=== PATIENT | female | born 1985 | race Caucasian/White ===

== ENCOUNTER 2017-07-29 13:46 | Emergency (ER) | payer MEDICAID, SELFPAY ==
[2017-07-29 13:47] VITALS: BP 134/91; PULSE 116; RESP 14; TEMP 37.3; O2SAT 100; BMI 26.9
--- NOTE | 2017-07-29 15:19 | ED.VISSUMM ---
- ER Visit Summary Date of Service: 07/29/17 Chief Complaint: [Dental pain] History of Present Illness: The patient is a 32 F [presents the emergency department with dental pain. Is been going on for the last 2 weeks. He is supposed to have her right mandibular canines removed Friday however the pain is been getting worse. There is mild swelling. No fevers. 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 oarrs was pulled. Patient was given precautions for which to return and will follow up with her dentist.] Treatment Plan: [] Disposition: [Discharge] Impression: [1. Dental infection 2. Dental decay] This note was generated with [employer] dictation software. It may contain incorrect words, spelling, and punctuation that were not noted in review of the chart prior to signing ED Disposition - Plan for ED Patient: Chief Complaint: Dental Referrals: Kishore Woodruff MD [Primary Care Provider] -
--- NOTE | 2017-07-29 15:22 | ED.DCSUM_ITS ---
- ER Visit Summary Date of Service: 07/29/17 Chief Complaint: [Dental pain] History of Present Illness: The patient is a 32 F [presents the emergency department with dental pain. Is been going on for the last 2 weeks. He is supposed to have her right mandibular canines removed Friday however the pain is been getting worse. There is mild swelling. No fevers. She denies the possibility of and states she has had a tubal ligation] Physical Examination: [] 116 other vitals within normal limits No facial swelling Patient has severe decay of the right canines mandibular, there is surrounding gum hyperemia there is no abscess there is no sublingual or submandibular edema no pooling of secretions no trismus Test Results: [] Emergency Department Course and Treatment: [Patient will be given a short course of [place] and Augmentin. oarrs was pulled. Patient was given precautions for which to return and will follow up with her dentist.] Treatment Plan: [] Disposition: [Discharge] Impression: [1. Dental infection 2. Dental decay] This note was generated with [employer] dictation software. It may contain incorrect words, spelling, and punctuation that were not noted in review of the chart prior to signing ED Disposition - Plan for ED Patient: Chief Complaint: Dental Referrals: Kishore Woodruff MD [Primary Care Provider] -
--- NOTE | 2017-07-29 15:22 | ED.DEP ---
ED Disposition - Plan for ED Patient: Chief Complaint: Dental Instructions: ED Cavity Dental, ED Abscess Dental Prescriptions: Hydrocodone Bitart/Apap 5-325 [[place] 5MG-325MG] 1 tablet PO Q6H PRN PRN 2 Days #7 tablet PRN Reason: Pain Clindamycin [Cleocin] 450 mg PO TID #56 capsule Referrals: Kishore Woodruff MD [Primary Care Provider] -
--- NOTE | 2017-07-29 15:24 | DCINST.ED_ITS ---
ED Disposition - Plan for ED Patient: Chief Complaint: Dental Instructions: ED Cavity Dental, ED Abscess Dental Prescriptions: Hydrocodone Bitart/Apap 5-325 [[place] 5MG-325MG] 1 tablet PO Q6H PRN PRN 2 Days # 7 tablet PRN Reason: Pain Clindamycin [Cleocin] 450 mg PO TID #56 capsule Referrals: Kishore Woodruff MD [Primary Care Provider] -
--- NOTE | 2017-07-29 15:30 | ED.DEP ---
ED Disposition - Plan for ED Patient: Chief Complaint: Dental Instructions: ED Cavity Dental, ED Abscess Dental Prescriptions: Hydrocodone Bitart/Apap 5-325 [[place] 5MG-325MG] 1 tablet PO Q6H PRN PRN 2 Days #7 tablet PRN Reason: Pain Clindamycin [Cleocin] 450 mg PO TID #56 capsule Referrals: Kishore Woodruff MD [Primary Care Provider] - 3-5 Days
--- NOTE | 2017-07-29 15:31 | DCINST.ED_ITS ---
ED Disposition - Plan for ED Patient: Chief Complaint: Dental Instructions: ED Cavity Dental, ED Abscess Dental Prescriptions: Hydrocodone Bitart/Apap 5-325 [[place] 5MG-325MG] 1 tablet PO Q6H PRN PRN 2 Days # 7 tablet PRN Reason: Pain Clindamycin [Cleocin] 450 mg PO TID #56 capsule Referrals: Kishore Woodruff MD [Primary Care Provider] - 3-5 Days
[2017-07-29 15:37] VITALS: BP 132/78; PULSE 83; RESP 16; O2SAT 98
== END 2017-07-29 15:38 | disposition home or self-care (01) ==
LOC: ED 15:06
PROVIDERS: Emergency Provider Emergency Medicine; Family Provider Family Medicine; PCP Family Medicine
DX: K04.7 Periapical abscess without sinus (principal); K02.9 Dental caries, unspecified
CPT/HCPCS: 99282

== ENCOUNTER 2017-08-21 19:15 | Emergency (ER) | payer MEDICAID, SELFPAY ==
[2017-08-21 19:16] VITALS: BP 129/87; PULSE 79; RESP 20; TEMP 36.5; O2SAT 93; BMI 27.7
--- NOTE | 2017-08-21 19:55 | US_ITS ---
STUDY: ULTRASOUND OF THE FEMALE PELVIS - COMPLETE REASON FOR EXAM: Female, 32 years old. Right lower quadrant pain. LMP: 07/20/2017 TECHNIQUE: Transvaginal TECHNICAL QUALITY: Adequate. COMPARISON: None. FINDINGS: The uterus is retroverted and is in a midline position. The uterus measures 7.6 x 5.9 x 4.2 cm. Normal uterine cervix. The endometrium measures 7 mm in thickness, and is hyperechoic. There is no demonstrated endometrial mass. There is no demonstrated myometrial mass. I.U.D. - The patient does not have an I.U.D. The right ovary is visualized. The right ovary measures 4.1 x 2.7 x 1.8 cm. There is no right ovarian cyst or ovarian mass. There is no visualized right adnexal mass or complex lesion. There is normal arterial and normal venous vascularity. The left ovary is visualized. The left ovary measures 3.9 x 2.7 x 2.1 cm. There is a prominent simple appearing cyst measuring 2.4 x 2.2 x 1.8 cm. There is no visualized left adnexal mass or complex lesion. There is normal arterial and normal venous vascularity. There is minimal fluid in the cul-de-sac. Polycystic ovary disease: No. US/Transvaginal Non- IMPRESSION: 1. Right ovarian dominant cyst with maximum dimension of 2.4 cm. Follow-up imaging may be obtained in 4-6 weeks to document stability versus resolution. Otherwise no evidence of acute pelvic process. Electronically Signed: Hermelindo Prado DO at 21:11 EST , Service support ,
[2017-08-21] MEDS: Ondansetron ODT 4 MG Tablet PO (20:10)
[2017-08-21] MEDS: HYDROcodone Bitartrate/Apap 5/325 Tablet PO ×2 (20:10→22:11)
[2017-08-21 20:44] LABS: Bacteria 0 SEEN /hpf (None Seen); Mucous, Urine 0 SEEN /hpf (<or=2+); Red Blood Cells-Urine 0 SEEN /hpf (0-5)
[2017-08-21 21:20] VITALS: RESP 16
[2017-08-21 21:29] LABS: Color, Urine Yellow (Yellow); Glucose, Dipstick Normal (Normal); Ketone-Dipstick Negative (Negative); Leukocyte Esterase-Dipstick Negative /ul (Negative); Nitrite-Dipstick Negative (Negative); Occult Blood-Urine Negative /ul (Negative); Protein-Dipstick Negative (Negative); Specific Gravity, Urine 1.015 (1.002-1.030); Urine Bilirubin Dipstick Negative (Negative); Urine Clarity Cloudy (Clear); Urine Urobilinogen Normal (Normal)
[2017-08-21 21:48] LABS: Squamous Epithelial Cells - UA 0-5 SEEN /hpf (5-10)
[2017-08-21 21:49] LABS: Amorphous Sediment 3+; White Blood Cells 0-5 SEEN /hpf (0-5)
[2017-08-21 21:51] LABS: Internal QC Validated? YES +Cl - CLEAR BKGD; Pregnancy, Urine Negative Negative
--- NOTE | 2017-08-21 22:01 | ED.VISSUMM ---
- ER Visit Summary Date of Service: 08/21/17 Chief Complaint: Abdominal pain History of Present Illness: The patient is a 32 F with right pelvic pain that started several days ago. Feels like stabbing pain. She had similar symptoms in the past with ovarian cyst. Denies any vaginal discharge or bleeding. Last menstrual period was July 20. Physical Examination: Vital signs unremarkable. Afebrile. Nontoxic and in no acute distress. Heart regular. Lungs clear. Right pelvic tenderness. No guarding or rebound. Skin appears normal. Test Results: Ultrasound shows a right ovarian cyst, 2.4 cm. Follow-up in 4-6 weeks. Urinalysis and test negative. Emergency Department Course and Treatment: Patient was treated with Zofran and [place] while awaiting results. Patient may use muuf-bit-tvhlneq remedies for pain at home. Zofran as needed for nausea. Follow-up with OB for recheck. Return for any new or worsening symptoms. Torsion was discussed. There is no indication for any further imaging or diagnostic studies. Patient is appropriate for outpatient follow-up. Treatment Plan: As above Disposition: Discharged Impression: 1. Right ovarian cyst This note was generated with [employer] dictation software. It may contain incorrect words, spelling, and punctuation that were not noted in review of the chart prior to signing ED Disposition - Plan for ED Patient: Chief Complaint: Female C/O Referrals: Kishore Woodruff MD [Primary Care Provider] -
--- NOTE | 2017-08-21 22:04 | ED.DCSUM_ITS ---
- ER Visit Summary Date of Service: 08/21/17 Chief Complaint: Abdominal pain History of Present Illness: The patient is a 32 F with right pelvic pain that started several days ago. Feels like stabbing pain. She had similar symptoms in the past with ovarian cyst. Denies any vaginal discharge or bleeding. Last menstrual period was July 20. Physical Examination: Vital signs unremarkable. Afebrile. Nontoxic and in no acute distress. Heart regular. Lungs clear. Right pelvic tenderness. No guarding or rebound. Skin appears normal. Test Results: Ultrasound shows a right ovarian cyst, 2.4 cm. Follow-up in 4-6 weeks. Urinalysis and test negative. Emergency Department Course and Treatment: Patient was treated with Zofran and [place] while awaiting results. Patient may use jrqb-wmm-hkgowiu remedies for pain at home. Zofran as needed for nausea. Follow-up with OB for recheck. Return for any new or worsening symptoms. Torsion was discussed. There is no indication for any further imaging or diagnostic studies. Patient is appropriate for outpatient follow-up. Treatment Plan: As above Disposition: Discharged Impression: 1. Right ovarian cyst This note was generated with [employer] dictation software. It may contain incorrect words, spelling, and punctuation that were not noted in review of the chart prior to signing ED Disposition - Plan for ED Patient: Chief Complaint: Female C/O Referrals: Kishore Woodruff MD [Primary Care Provider] -
--- NOTE | 2017-08-21 22:04 | ED.DEP ---
ED Disposition - Plan for ED Patient: Chief Complaint: Female C/O Instructions: ED Cyst Ovarian Prescriptions: Ondansetron [Zofran Odt] 4 mg PO Q8H PRN PRN #10 tab PRN Reason: Nausea Naproxen [Naprosyn] 500 mg PO BID PRN #20 tab Additional Instructions: Follow-up with your OB doctor as discussed
[2017-08-21 22:12] VITALS: RESP 16
--- NOTE | 2017-08-21 22:13 | ED.RN ---
REVIEWED D/C INSTRUCTIONS, FOLLOW UP CARE, PRESCRIPTIONS, AND S/S THAT WOULD WARRANT A RETURN TO THE ED WITH PT. PT VERBALIZED AN UNDERSTANDING AND DENIES FURTHER QUESTIONS FOR THIS RN. PT SKIN P/W/D, RESP EVEN AND UNLABORED, PT A&O X 3, NO DISTRESS NOTED. PT AMBULATED OUT OF ED, GAIT STEADY.
== END 2017-08-21 22:14 | disposition home or self-care (01) ==
PROVIDERS: Emergency Provider Emergency Medicine; Family Provider Family Medicine; PCP Family Medicine
DX: N83.201 Unspecified ovarian cyst, right side (principal)
CPT/HCPCS: 76830; 81001; 81025; 93976; 99283

== ENCOUNTER 2017-08-22 15:37 | Emergency (ER) | payer MEDICAID, SELFPAY ==
[2017-08-22 15:39] VITALS: BP 152/72; PULSE 88; PULSE 92; RESP 14; RESP 17; TEMP 36.9; O2SAT 100; BMI 27.8
--- NOTE | 2017-08-22 16:24 | ED.VISSUMM ---
- ER Visit Summary Date of Service: 08/22/17 Chief Complaint: Right pelvic pain History of Present Illness: The patient is a 32 F who presents for right-sided pelvic pain for 5 days. Was seen last night for the same complaint and had a normal urine and pelvic ultrasound that showed a large right ovarian cyst with no evidence of torsion. Patient was discharged home on NSAIDs and Zofran. She states the Zofran is taking care of her nausea but she continues to have pain that is not controlled with the naproxen. Patient denies any dysuria, hematuria, frequency, back pain, or any other abdominal pain except localized the right pelvis. She denies any vaginal discharge or bleeding. She denies and states she is not sexually active and has tubal ligation. Physical Examination: Vital signs: afebrile, hemodynamically stable, no hypoxia on room air General: well nourished, well developed, in no distress Skin: warm, dry, no rash, no pallor HEENT: normocephalic and atraumatic; PERRL, EOMI, moist mucous membranes Cardiovascular: regular rate and rhythm without murmurs, no peripheral edema, 2+ pulses all distal extremities Respiratory: No increased work of breathing, lungs are clear to auscultation bilaterally, no rales, rhonchi or wheezing Abdominal: Abdomen is soft, nontender with normoactive bowel sounds, no guarding or rebound, no masses, no adnexal mass noted in the right pelvis, no tenderness, guarding or rebound. Negative McBurney's point. MSK: Moves all extremities, no deformities, normal strength Neuro: Awake and alert, oriented ?4. No facial droop, sensation and motor function intact and symmetric Test Results: [] Emergency Department Course and Treatment: Patient's visit from yesterday was reviewed, and she is having no change in her condition since yesterday. Her ultrasound yesterday showed a right ovarian cyst and no evidence of torsion or other acute pathology. Patient's exam today is benign, with no adnexal tenderness or mass. No further testing was performed as this clinically does not seem consistent with ovarian torsion or appendicitis. Patient's main request is for pain medication to help her until she gets to her appointment with her OB physician on Friday. [facility] report was evaluated and showed limited opiate prescriptions for months. Patient was given 2 days prescription of Percocet for severe pain but she is to continue using NSAIDs for [id number] pain. Patient agreed with this plan was discharged home. Treatment Plan: [] Disposition: [] Impression: Right ovarian cyst, persistent right pelvic pain This note was generated with [employer] dictation software. It may contain incorrect words, spelling, and punctuation that were not noted in review of the chart prior to signing ED Disposition - Plan for ED Patient: Disposition: Home or Assisted Living Chief Complaint: Female C/O Instructions: ED Cyst Ovarian Prescriptions: Oxycodone HCl/Acetaminophen [Percocet 5/325] 1 tab PO Q6H PRN PRN 3 Days #10 tab PRN Reason: Pain Referrals: Kishore Woodruff MD [Primary Care Provider] - Additional Instructions: Please keep your appointment on Friday with Dr. Handley for further evaluation of your right pelvic pain and history of ovarian cysts. Continue using the Zofran as needed for pain. Use Advil or naproxen as needed for pain. You may use the percocet for severe uncontrolled pain. Any worsening of your condition or any new concerning symptoms, please come back to the emergency department for another evaluation.
--- NOTE | 2017-08-22 16:26 | ED.DEP ---
ED Disposition - Plan for ED Patient: Disposition: Home or Assisted Living Chief Complaint: Female C/O Instructions: ED Cyst Ovarian Prescriptions: Oxycodone HCl/Acetaminophen [Percocet 5/325] 1 tab PO Q6H PRN PRN 3 Days #10 tab PRN Reason: Pain Referrals: Kishore Woodruff MD [Primary Care Provider] - Additional Instructions: Please keep your appointment on Friday with Dr. Handley for further evaluation of your right pelvic pain and history of ovarian cysts. Continue using the Zofran as needed for pain. Use Advil or naproxen as needed for pain. You may use the percocet for severe uncontrolled pain. Any worsening of your condition or any new concerning symptoms, please come back to the emergency department for another evaluation.
== END 2017-08-22 16:39 | disposition home or self-care (01) ==
LOC: ED 16:29
PROVIDERS: Emergency Provider Emergency Medicine; Family Provider Family Medicine; PCP Family Medicine
DX: N83.201 Unspecified ovarian cyst, right side (principal); R10.2 Pelvic and perineal pain; R11.0 Nausea
CPT/HCPCS: 99282

== ENCOUNTER 2017-08-27 14:46 | Emergency (ER) | payer MEDICAID, SELFPAY ==
[2017-08-27 14:47] VITALS: BP 129/82; PULSE 98; RESP 16; TEMP 37.1; O2SAT 100; BMI 27.2
--- NOTE | 2017-08-27 15:13 | US_ITS ---
STUDY: ULTRASOUND TRANSVAGINAL CLINICAL: Female, 32 years old. Right lower quadrant pain. TECHNIQUE: Transvaginal COMPARISON: Transvaginal ultrasound, August 21, 2017 and August 17, 2015. FINDINGS: Uterus is retroverted. Normal uterine size measuring 6.5 x 5.8 x 6.2 cm in maximal dimension. There are no myometrial masses. Normal endometrial thickness measuring 11 mm. The endometrium is hyperechoic. There are no endometrial masses, and there is no fluid in the endometrial cavity. Normal uterine cervix. Normal right ovary, measuring 4 x 2.4 x 1.8 cm. There are multiple follicles without a dominant cyst. There is normal blood flow on Doppler imaging. Normal left ovary, measuring 4.5 x 3.5 x 2.7 cm. There is a 2.8 x 2.5 x 2.1 cm cyst. There is normal blood flow on Doppler imaging. There is no free fluid in the pelvis. US/Transvaginal Non- IMPRESSION: 1. Mildly prominent endometrium without other evidence of uterine abnormality. 2. Normal right ovary. 3. A persistent left ovarian cyst unchanged from prior study. 4. Moderate free fluid in the posterior cul-de-sac. Electronically Signed: Oswaldo Garsia DO at 16:24 EDT Tel [phone], Service support ,
[2017-08-27] MEDS: Ondansetron ODT 4 MG Tablet PO (15:32)
[2017-08-27 15:34] VITALS: RESP 18
[2017-08-27 15:37] LABS: Internal QC Validated? YES +Cl - CLEAR BKGD; Pregnancy, Urine Negative Negative
[2017-08-27 15:42] LABS: Glucose, Dipstick Normal (Normal); Ketone-Dipstick Negative (Negative); Leukocyte Esterase-Dipstick 25 /ul (Negative); Nitrite-Dipstick Negative (Negative); Occult Blood-Urine Negative /ul (Negative); Protein-Dipstick 15 mg/dl (Negative); Urine Bilirubin Dipstick Negative (Negative); Urine Urobilinogen Normal (Normal)
[2017-08-27 15:43] LABS: Color, Urine YELLOW (Yellow); Urine Clarity Clear (Clear)
[2017-08-27 15:52] LABS: Bacteria 1+ /hpf (None Seen); Mucous, Urine 2+ /hpf (<or=2+); Red Blood Cells-Urine 0-5 SEEN /hpf (0-5); Squamous Epithelial Cells - UA 0-5 SEEN /hpf (5-10); White Blood Cells 0-5 SEEN /hpf (0-5)
[2017-08-27] MEDS: Acetaminophen 500 MG Tablet 1000 MG PO (16:32)
--- NOTE | 2017-08-27 16:51 | ED.VISSUMM ---
- ER Visit Summary Date of Service: 08/27/17 Chief Complaint: Pelvic pain History of Present Illness: The patient is a 32 F presenting for evaluation secondary to pelvic pain. Patient states that she has a known history of an ovarian cyst and has been having continuous right sided sharp pelvic pain over the course of the last week. She has had ultrasounds within the last week, was actually following up with the nurse practitioner at her family practice office today who recommended that she come back for another ultrasound. Patient denies any fevers dysuria hematuria she does endorse some nausea associated with this. She denies any vaginal discharge or bleeding. She is status post tubal ligation. She has an appointment coming up with OB on Friday. Physical Examination: Vital signs within normal limits. Patient is sitting nontoxic in the bed talking on her telephone when I enter the room. Abdominal exam shows a minimal amount of right-sided pelvic tenderness to palpation no guarding no rebound tenderness remainder the physical otherwise unremarkable and noted in the template. Test Results: Urinalysis negative, hCG negative, pelvic ultrasound shows left-sided ovarian cysts and free fluid in the pelvis Emergency Department Course and Treatment: Patient presented secondary to chronic pelvic pain. Patient does have multiple ED visits for the same, but ultrasound was performed to rule out torsion. Patient has good blood flow, her previous ultrasound actually said that her ovarian cysts were on the right, and today it states that they are on the left but there are the exact same size with good blood flow. I am not concerned about torsion at this point. Patient is sitting completely nontoxic texting in the bed when I go in to reevaluate her. She refused Toradol. This point I believe she can follow-up with [facility] on Friday. Patient will be discharged with a prescription for NSAIDs. Disposition: Discharge Impression: 1. Chronic pelvic pain 2. Ovarian cyst This note was generated with [employer] dictation software. It may contain incorrect words, spelling, and punctuation that were not noted in review of the chart prior to signing ED Disposition - Plan for ED Patient: Disposition: Home or Assisted Living Chief Complaint: Abd Pain Diagnosis: Pelvic pain Instructions: ED Cyst Ovarian Prescriptions: Diclofenac [Voltaren] 75 mg PO BIDCM #20 tab Referrals: Josh Sheffield [STAFF PHYSICIAN] - Keep Hank appointment
--- NOTE | 2017-08-27 16:56 | ED.DCSUM_ITS ---
- ER Visit Summary Date of Service: 08/27/17 Chief Complaint: Pelvic pain History of Present Illness: The patient is a 32 F presenting for evaluation secondary to pelvic pain. Patient states that she has a known history of an ovarian cyst and has been having continuous right sided sharp pelvic pain over the course of the last week. She has had ultrasounds within the last week, was actually following up with the nurse practitioner at her family practice office today who recommended that she come back for another ultrasound. Patient denies any fevers dysuria hematuria she does endorse some nausea associated with this. She denies any vaginal discharge or bleeding. She is status post tubal ligation. She has an appointment coming up with OB on Friday. Physical Examination: Vital signs within normal limits. Patient is sitting nontoxic in the bed talking on her telephone when I enter the room. Abdominal exam shows a minimal amount of right-sided pelvic tenderness to palpation no guarding no rebound tenderness remainder the physical otherwise unremarkable and noted in the template. Test Results: Urinalysis negative, hCG negative, pelvic ultrasound shows left- sided ovarian cysts and free fluid in the pelvis Emergency Department Course and Treatment: Patient presented secondary to chronic pelvic pain. Patient does have multiple ED visits for the same, but ultrasound was performed to rule out torsion. Patient has good blood flow, her previous ultrasound actually said that her ovarian cysts were on the right, and today it states that they are on the left but there are the exact same size with good blood flow. I am not concerned about torsion at this point. Patient is sitting completely nontoxic texting in the bed when I go in to reevaluate her. She refused Toradol. This point I believe she can follow-up with [facility] on Friday. Patient will be discharged with a prescription for NSAIDs. Disposition: Discharge Impression: 1. Chronic pelvic pain 2. Ovarian cyst This note was generated with [employer] dictation software. It may contain incorrect words, spelling, and punctuation that were not noted in review of the chart prior to signing ED Disposition - Plan for ED Patient: Disposition: Home or Assisted Living Chief Complaint: Abd Pain Diagnosis: Pelvic pain Instructions: ED Cyst Ovarian Prescriptions: Diclofenac [Voltaren] 75 mg PO BIDCM #20 tab Referrals: Josh Sheffield [STAFF PHYSICIAN] - Keep Hank appointment
--- NOTE | 2017-08-27 17:05 | ED.RN ---
REVIEWED D/C INSTRUCTIONS, FOLLOW UP CARE, PRESCRIPTION, AND S/S THAT WOULD WARRANT A RETURN TO THE ED WITH PT. PT VERBALIZED AN UNDERSTANDING AND DENIES FURTHER QUESTIONS FOR THIS RN. PT SKIN P/W/D, RESP EVEN AND UNLABORED, PT A&O X 3, NO DISTRESS NOTED. PT AMBULATED OUT OF ED, GAIT STEADY.
== END 2017-08-27 17:06 | disposition home or self-care (01) ==
PROVIDERS: Emergency Provider Emergency Medicine; Family Provider Family Medicine; PCP Family Medicine
DX: G89.29 Other chronic pain (principal); R10.2 Pelvic and perineal pain; R11.0 Nausea; N83.202 Unspecified ovarian cyst, left side; Z98.51 Tubal ligation status; Z79.899 Other long term (current) drug therapy
CPT/HCPCS: 76830; 81001; 81025; 93976; 99281; 99283

== ENCOUNTER 2017-08-27 18:09 | Emergency (ER) | payer MEDICAID, SELFPAY ==
[2017-08-27 18:09] VITALS: BP 147/79; PULSE 92; RESP 18; TEMP 36.8; O2SAT 99; BMI 27.3
[2017-08-27] MEDS: HYDROcodone Bitartrate/Apap 5/325 Tablet PO (19:17)
--- NOTE | 2017-08-27 19:21 | ED.VISSUMM ---
- ER Visit Summary Date of Service: 08/27/17 Chief Complaint: Pelvic pain History of Present Illness: The patient is a 32 F presenting due to pelvic pain. Patient was seen in the emergency department earlier today having sequela of pain from ovarian cysts. She had a negative ultrasound except for large ovarian cysts, she was discharged with NSAIDs and states that her pain is not well controlled. She has an appointment coming up on Friday with [facility]. Physical Examination: Very minimal pelvic tenderness to palpation remainder the physical otherwise unremarkable Test Results: None indicated Emergency Department Course and Treatment: Saw this patient earlier in the shift, patient did have a negative ultrasound, she continues to be nontoxic, her oars report shows that she has not had recent prescriptions, so the patient was given a very protracted course of Percocet and was instructed that she will get NO MORE PRESCRIPTIONS FROM THE EMERGENCY DEPARTMENT. Disposition: Discharge Impression: 1. Pelvic pain This note was generated with [employer] dictation software. It may contain incorrect words, spelling, and punctuation that were not noted in review of the chart prior to signing ED Disposition - Plan for ED Patient: Disposition: Home or Assisted Living Chief Complaint: Abd Pain Diagnosis: Pelvic pain Instructions: ED Pelvic Pain [facility] Prescriptions: Oxycodone HCl/Acetaminophen [Percocet 5/325] 1 tab PO Q6H PRN PRN 3 Days #12 tab PRN Reason: Pain Additional Instructions: Followup on Friday. You must obtain your prescriptions from a single provider. We will be unable to provide you with any further narcotic prescriptions
[2017-08-27 19:39] VITALS: BP 138/80; PULSE 90; RESP 14; O2SAT 99
== END 2017-08-27 19:41 | disposition home or self-care (01) ==
PROVIDERS: Emergency Provider Emergency Medicine; Family Provider Family Medicine; PCP Family Medicine
DX: R10.2 Pelvic and perineal pain (principal); R11.0 Nausea

== ENCOUNTER 2017-10-31 13:38 | Emergency (ER) | payer MEDICAID, SELFPAY ==
[2017-10-31 13:39] VITALS: BP 122/64; PULSE 87; RESP 16; TEMP 36.8; O2SAT 100; BMI 26.2
--- NOTE | 2017-10-31 14:17 | ED.VISSUMM ---
- ER Visit Summary Date of Service: 10/31/17 Chief Complaint: Dental pain History of Present Illness: The patient is a [address] Blood. She reports she has dental pain that began yesterday. Is a throbbing pain is 1010 at worst and 6 out of 10 currently. Is worsened by eating or drinking. She taken ibuprofen without relief. She denies any fever. She reports she has an appointment to see [facility] November 06. Physical Examination: Vitals: Stable. Afebrile. Mouth: No trismus. No edema of the floor of the mouth. Pain with percussion of right mandibular canine. There is approximately 5 mm of focal swelling beneath this. She has widespread dental decay. There are multiple absent teeth. General: A&O x 3. NAD. Cardiovascular exam: Regular rate and rhythm, no murmur, rub or gallop. Respiratory exam: Clear to auscultation bilaterally. No wheezes or stridor. Abdominal exam: Soft, nontender, nondistended, normal bowel sounds. No peritoneal signs. Extremity: No clubbing, cyanosis, or edema. Emergency Department Course and Treatment: An OARRS report was obtained which show she had 8 prescriptions for opiates in the past year. Patient does have an abscess and will be given the benefit of the doubt. She treated with naproxen, Kuna, and clindamycin p.o. Treatment Plan: Patient will be discharged on the above medications instructed follow-up with her dentist as scheduled. Disposition: To home in improved and stable condition. Impression: 1. Dental abscess. This note was generated with [employer] dictation software. It may contain incorrect words, spelling, and punctuation that were not noted in review of the chart prior to signing ED Disposition - Plan for ED Patient: Disposition: Home or Assisted Living Chief Complaint: Dental Instructions: Dental Abscess Prescriptions: Hydrocodone/Acetaminophen [Kuna 5-325 Tablet] 1 - 2 each PO 4X/DAY PRN PRN 3 Days #12 tablet PRN Reason: Pain Naproxen [Naprosyn] 500 mg PO BID #14 tablet Clindamycin HCl [Cleocin] 300 mg PO Q6H #40 capsule Referrals: Dentist,Your [STAFF PHYSICIAN] - As soon as possible
--- NOTE | 2017-10-31 14:21 | ED.DCSUM_ITS ---
- ER Visit Summary Date of Service: 10/31/17 Chief Complaint: Dental pain History of Present Illness: The patient is a [address] Blood. She reports she has dental pain that began yesterday. Is a throbbing pain is 1010 at worst and 6 out of 10 currently. Is worsened by eating or drinking. She taken ibuprofen without relief. She denies any fever. She reports she has an appointment to see [facility] November 06. Physical Examination: Vitals: Stable. Afebrile. Mouth: No trismus. No edema of the floor of the mouth. Pain with percussion of right mandibular canine. There is approximately 5 mm of focal swelling beneath this. She has widespread dental decay. There are multiple absent teeth. General: A&O x 3. NAD. Cardiovascular exam: Regular rate and rhythm, no murmur, rub or gallop. Respiratory exam: Clear to auscultation bilaterally. No wheezes or stridor. Abdominal exam: Soft, nontender, nondistended, normal bowel sounds. No peritoneal signs. Extremity: No clubbing, cyanosis, or edema. Emergency Department Course and Treatment: An OARRS report was obtained which show she had 8 prescriptions for opiates in the past year. Patient does have an abscess and will be given the benefit of the doubt. She treated with naproxen, [place], and clindamycin p.o. Treatment Plan: Patient will be discharged on the above medications instructed follow-up with her dentist as scheduled. Disposition: To home in improved and stable condition. Impression: 1. Dental abscess. This note was generated with [employer] dictation software. It may contain incorrect words, spelling, and punctuation that were not noted in review of the chart prior to signing ED Disposition - Plan for ED Patient: Disposition: Home or Assisted Living Chief Complaint: Dental Instructions: Dental Abscess Prescriptions: Hydrocodone/Acetaminophen [[place] 5-325 Tablet] 1 - 2 each PO 4X/DAY PRN PRN 3 Days #12 tablet PRN Reason: Pain Naproxen [Naprosyn] 500 mg PO BID #14 tablet Clindamycin HCl [Cleocin] 300 mg PO Q6H #40 capsule Referrals: Dentist,Your [STAFF PHYSICIAN] - As soon as possible
[2017-10-31] MEDS: Naproxen 250 MG Tablet 500 MG PO (14:35)
[2017-10-31] MEDS: Clindamycin HCl 150 MG Capsule 300 MG PO (14:35)
[2017-10-31] MEDS: HYDROcodone Bitartrate/Apap 5/325 Tablet PO (14:36)
== END 2017-10-31 14:55 | disposition home or self-care (01) ==
PROVIDERS: Emergency Provider Emergency Medicine; Family Provider Family Medicine; PCP Family Medicine
DX: K04.7 Periapical abscess without sinus (principal); K02.9 Dental caries, unspecified; K08.89 Other specified disorders of teeth and supporting structures; Z79.899 Other long term (current) drug therapy
CPT/HCPCS: 99283

== ENCOUNTER 2017-12-06 10:59 | Emergency (ER) | payer MEDICAID, SELFPAY ==
[2017-12-06 11:01] VITALS: BP 107/59; PULSE 130; RESP 17; TEMP 37.9; O2SAT 99; BMI 24.7
--- NOTE | 2017-12-06 11:27 | ED.VISSUMM ---
- ER Visit Summary Date of Service: 12/06/17 Chief Complaint: Area with suprapubic abdominal discomfort History of Present Illness: The patient is a 32 F history of sciatica. Ab0. States that she has had a tubal ligation in the past. The last 4 days she has had dysuria with chills. Right-sided abdominal pain. Positive nausea but no vomiting or diarrhea. No constipation. No gross hematuria. She denies any back pain. Physical Examination: Well appearing female vital signs are stable temperature 100.3. She does not look septic or toxic. She does not look dehydrated. H EENT exam unremarkable. Neck nontender lungs clear to auscultation bilaterally. Heart tachycardic no murmur. Abdomen is soft she does have mild tenderness suprapubically and right sided but not specifically at McBurney's point. She is nondistended. She has normal bowel sounds. The right upper quadrant and left side of her abdomen is completely nontender. There is no signs of obstruction or masses. She is moving all 4 extremities. Back exam is nontender. There is no CVA tenderness. Neurologically she is awake and alert. Test Results: CBC is normal with a white count of 5 H&H 12 and 37. BMP unremarkable. Potassium of 3.3. UA is positive for infection with positive nitrates, 5200 white cells and 2+ bacteria. She will be treated as UTI. Serum test is negative. Emergency Department Course and Treatment: Patient be treated with IV Phenergan for nausea. Labs will be obtained. Treatment Plan: Exam at 1340 patient is doing well abdomen is benign. She will be treated with Bactrim for UTI. She states she has a significant reaction to penicillin or Keflex. Disposition: Discharge Impression: Acute dysuria with abdominal pain secondary to UTI/cystitis This note was generated with [employer] dictation software. It may contain incorrect words, spelling, and punctuation that were not noted in review of the chart prior to signing ED Disposition - Plan for ED Patient: Chief Complaint: Abd Pain Referrals: Kishore Blood MD [Primary Care Provider] -
[2017-12-06 11:35] LABS: Squamous Epithelial Cells - UA 0 SEEN /hpf (5-10)
[2017-12-06 11:40] LABS: Color, Urine Yellow (Yellow); Glucose, Dipstick Normal (Normal); Ketone-Dipstick Negative (Negative); Leukocyte Esterase-Dipstick 500 /ul (Negative); Nitrite-Dipstick Positive (Negative); Occult Blood-Urine 25 /ul (Negative); Protein-Dipstick 30 mg/dl (Negative); Specific Gravity, Urine 1.015 (1.002-1.030); Urine Bilirubin Dipstick Negative (Negative); Urine Clarity Sl. Cloudy (Clear); Urine Urobilinogen Normal (Normal)
[2017-12-06] MEDS: proMETHazine 25 MG/ML Syringe 12.5 MG IV (11:47)
[2017-12-06 11:49] LABS: Bacteria 2+ /hpf (None Seen); Mucous, Urine RARE /hpf (<or=2+); Red Blood Cells-Urine 0-5 SEEN /hpf (0-5); White Blood Cells 50-100 SEEN /hpf (0-5)
[2017-12-06 11:51] LABS: Absolute Lymphocyte Count 0.13 X10^3/ul (0.83-4.51); Absolute Neutrophil Count 5.3 X10^3/uL (2.0-7.7); Basophil# 0.01 X10^3/uL; Basophil% 0.2 % (0-1); Eosinophil# 0.01 X10^3/uL; Eosinophils% 0.2 % (0-5); Hematocrit 37.5 % (37-47); Hemoglobin 12.4 g/dl (12.0-15.0); Lymphocyte # 0.13 X10^3/ul (4.0); Lymphocyte % 2.4 % (19-41); Mean Corp Hgb Conc 33.1 g/gl (32-36); Mean Corpuscular Hgb 28.2 pg (27.0-32.0); Mean Corpuscular Volume 85.4 fL (81-99); Mean Platelet Vol. 10.5 fl (6.2-12.0); Monocyte# 0.01 X10^3/uL; Monocyte% 0.2 % (0-10); Neutrophil # 5.25 X10^3/uL (2.7-7.7); Platelet Count 142 K/mm3 (150-450); RBC Distribution Width CV 14.3 % (11.6-14.6); Red Blood Count 4.39 M/mm3 (4.2-5.4); White Blood Count 5.4 K/mm3 (4.4-11.0)
[2017-12-06 11:53] LABS: Differential Indicated SCAN CRITERIA MET; POSITIVE COUNT NO; POSITIVE DIFFERENTIAL YES; POSITIVE MORPHOLOGY NO
[2017-12-06 12:03] LABS: Anion Gap 7 (5-15); BUN 11 mg/dL (7-18); BUN/Creat Ratio 12.2 RATIO (10-20); Calcium,Total 8.8 mg/dL (8.5-10.1); Chloride 105 mmol/L (98-107); EST Glomerular Filtration Rate 77 mL/min (>60); Est Glom Filt Rate - Afr Amer 93 mL/min (>60); Estimated Creatinine Clearance 70.98 ml/min; Glucose 76 mg/dL (74-106); Potassium 3.3 mmol/L (3.5-5.1); Sodium Level 137 mmol/L (136-145)
[2017-12-06 12:08] LABS: Differential Comment SCANNED
[2017-12-06 12:29] LABS: Pregnancy, Serum, hCG Quali. NEGATIVE Negative (0-9 Nonpreg)
--- NOTE | 2017-12-06 13:50 | ED.DEP ---
ED Disposition - Plan for ED Patient: Disposition: Home or Assisted Living Chief Complaint: Abd Pain Instructions: ED UTI Cystitis Female Prescriptions: Sulfamethoxazole/Trimethoprim [Bactrim Ds Tablet] 1 ea PO BID #10 tab Phenazopyridine [Pyridium] 200 mg PO TID #9 tab Referrals: Kishore Blood MD [Primary Care Provider] - 3-5 Days Additional Instructions: Plenty of fluids and rest. Pyridium for bladder spasms. Tylenol and Motrin for pain. Bactrim 1 pill twice a day for 5 days for the urinary tract infection. Call follow-up your primary care physician if not improving or return to ER feeling worse.
[2017-12-06 14:09] VITALS: BP 110/66; PULSE 76; RESP 14; O2SAT 95
[2017-12-06 14:10] VITALS: BP 110/66; PULSE 76; RESP 14; O2SAT 95
== END 2017-12-06 14:11 | disposition home or self-care (01) ==
PROVIDERS: Emergency Provider Emergency Medicine; Family Provider Family Medicine; PCP Family Medicine
DX: N30.90 Cystitis, unspecified without hematuria (principal); R11.0 Nausea; Z79.899 Other long term (current) drug therapy; Z98.51 Tubal ligation status
CPT/HCPCS: 80048; 81001; 84703; 85025; 96374; 99283

== ENCOUNTER 2017-12-12 21:03 | Emergency (ER) | payer MEDICAID, SELFPAY ==
[2017-12-12 21:05] VITALS: BP 131/71; PULSE 102; RESP 14; TEMP 36.4; O2SAT 100; BMI 24.5
[2017-12-12] MEDS: 0.9% Normal Saline 1,000 ML 1000 ML IV (21:23)
[2017-12-12] MEDS: Ondansetron 4 MG/2 ML Vial IV (21:28)
[2017-12-12] MEDS: Morphine 4 MG/ML Syringe IV (21:29)
--- NOTE | 2017-12-12 21:29 | ED.DCSUM_ITS ---
- ER Visit Summary Date of Service: 12/12/17 Chief Complaint: Dysuria History of Present Illness: The patient is a 32 F presents to the emergency department with dysuria. Patient was actually seen here 70 days ago for the same complaints. At that time, she was diagnosed urinary tract infection. The patient was started on Bactrim. She states that she took it, but still had persistent symptoms. She does describe some mild right-sided flank pain with nausea and vomiting. She denies fevers but does feel as if she has had chills. She denies hematuria. Patient has had prior tubal. She denies any vaginal bleeding or discharge. Physical Examination: Vital signs reviewed General: Well-nourished, well-developed Head: Normocephalic, atraumatic Eyes: Pupils equal and reactive, extraocular muscles intact Neck, supple, no lymphadenopathy Heart: Regular rate and rhythm Respiratory: No distress, clear bilaterally Abdomen: Soft, nontender, nondistended, no peritoneal signs Back: Mild right CVA tenderness Extremities: Nontender, no edema, no cords Skin: Normal color no rash Neuro: Alert and oriented, no focal or lateralizing deficits Test Results: [] Emergency Department Course and Treatment: The patient symptoms were consistent with pyelonephritis. IV was established. She was given fluids, analgesics, antiemetics. She did have improvement of her pain. Labs were obtained were unremarkable. Her urine still shows evidence of infection. I did culture her urine. He has no fever. She has controlled her pain at this time. Again, I do feel that this is likely clinical pyelonephritis. She is given a dose of IV Cipro and will be kept on this is as an outpatient. She will be given 2 days of analgesics and antiemetics. She will be discharged home, return with any worsening symptoms. Treatment Plan: [] Disposition: Discharge Impression: Pyelonephritis This note was generated with [employer] dictation software. It may contain incorrect words, spelling, and punctuation that were not noted in review of the chart prior to signing ED Disposition - Plan for ED Patient: Chief Complaint: Complaint Instructions: ED Kidney Infec Female Prescriptions: Hydrocodone Bitart/Apap 5-325 [[place] 5MG-325MG] 1 tab PO Q6H PRN PRN 3 Days #5 tab PRN Reason: Pain Ondansetron [Zofran Odt] 4 mg PO Q8H PRN PRN #10 tab PRN Reason: Nausea Ciprofloxacin [Cipro] 500 mg PO BID #14 tab Referrals: Kishore Blood MD [Primary Care Provider] -
[2017-12-12 21:41] LABS: Absolute Neutrophil Count 3.6 X10^3/uL (2.0-7.7); Eosinophil# 0.06 X10^3/uL; Eosinophils% 1.2 % (0-5); Hematocrit 34.8 % (37-47); Hemoglobin 11.3 g/dl (12.0-15.0); Lymphocyte % 18.2 % (19-41); Mean Corp Hgb Conc 32.5 g/gl (32-36); Mean Corpuscular Volume 83.3 fL (81-99); Monocyte# 0.37 X10^3/uL; Monocyte% 7.5 % (0-10); Neutrophil % 72.9 % (47-70); POSITIVE COUNT NO; POSITIVE DIFFERENTIAL NO; POSITIVE MORPHOLOGY NO; Platelet Count 206 K/mm3 (150-450); RBC Distribution Width CV 15.1 % (11.6-14.6); RBC Distribution Width SD 46.5 fl (35.1-43.9); Red Blood Count 4.18 M/mm3 (4.2-5.4); White Blood Count 4.9 K/mm3 (4.4-11.0)
[2017-12-12 21:47] LABS: Anion Gap 7 (5-15); BUN 14 mg/dL (7-18); BUN/Creat Ratio 18.4 RATIO (10-20); Calcium,Total 8.9 mg/dL (8.5-10.1); Chloride 103 mmol/L (98-107); Creatinine, Serum 0.76 mg/dL (0.55-1.02); EST Glomerular Filtration Rate 93 mL/min (>60); Est Glom Filt Rate - Afr Amer 113 mL/min (>60); Estimated Creatinine Clearance 84.05 ml/min; Glucose 95 mg/dL (74-106); Potassium 3.8 mmol/L (3.5-5.1); Sodium Level 137 mmol/L (136-145)
[2017-12-12 22:18] LABS: Color, Urine Yellow (Yellow); Glucose, Dipstick Normal (Normal); Ketone-Dipstick Negative (Negative); Leukocyte Esterase-Dipstick 100 /ul (Negative); Nitrite-Dipstick Negative (Negative); Occult Blood-Urine 10 /ul (Negative); Protein-Dipstick 30 mg/dl (Negative); Urine Bilirubin Dipstick Negative (Negative); Urine Clarity Clear (Clear); Urine Urobilinogen 1 mg/dl (Normal)
[2017-12-12 22:33] LABS: White Blood Cells 5-10 SEEN /hpf (0-5)
[2017-12-12 22:34] LABS: Bacteria RARE /hpf (None Seen); Hyaline Cast 0-5 SEEN /lpf (0-5); Mucous, Urine RARE /hpf (<or=2+); Red Blood Cells-Urine 0-5 SEEN /hpf (0-5); Squamous Epithelial Cells - UA 0-5 SEEN /hpf (5-10)
[2017-12-12] MEDS: Ciprofloxacin 400 MG/200 ML BAG 200 MG IV (22:40)
[2017-12-12] MEDS: HYDROcodone Bitartrate/Apap 5/325 Tablet PO (22:40)
--- NOTE | 2017-12-12 22:47 | ED.RN ---
2119: PT REPORTS THE LAST TIME SHE WAS HERE SHE THINKS IT WAS [facility] THAT SHE RCVD & REPORTS SHE DID NOT HANDLE IT WELL. REPORTS SHE WAS PICKING AT THE AIR AT [facility] THAT WERE NOT THERE AND PREFER NOT TO HAVE IT. DR VILLARREAL AWARE AND CHANGED ORDER TO ZOFRAN 4 MG IV. [facility] NOT GIVEN.
[2017-12-12 23:26] VITALS: BP 117/76; PULSE 85; RESP 15; O2SAT 100
== END 2017-12-12 23:48 | disposition home or self-care (01) ==
LOC: ED 21:14
PROVIDERS: Emergency Provider Emergency Medicine; Family Provider Family Medicine; PCP Family Medicine
DX: N12 Tubulo-interstitial nephritis, not specified as acute or chronic (principal)
CPT/HCPCS: 80048; 81001; 85025; 87086; 96361; 96365; 96375; 99283; J7030; A4216; J0744; J2405

== ENCOUNTER 2018-01-01 01:55 | Emergency (ER) | payer MEDICAID, SELFPAY ==
[2018-01-01 01:57] VITALS: BP 159/87; PULSE 83; RESP 16; TEMP 36.7; O2SAT 100; BMI 25.2
[2018-01-01] MEDS: Fluorescein 1 MG STRIP 1 STRIP LEFT EYE (02:25)
[2018-01-01] MEDS: Tetracaine 0.5% Ophthalmic Bottle 1 DRP LEFT EYE (02:26)
--- NOTE | 2018-01-01 02:53 | ED.VISSUMM ---
- ER Visit Summary Date of Service: 01/01/18 Chief Complaint: Left eye pain History of Present Illness: The patient is a 32 F who complains of left eye pain and thinks that she has a contact stuck in her eye. 4 days ago she excellently hit herself in the left eye with a screwdriver. She has been having some mild discomfort since that time. She has had some redness and swelling. Today she went to put in a new contact and noticed a bubble along the medial thigh which she believed was her contact. She attempted to remove this but developed increasing pain so presented here. Physical Examination: Afebrile vitals are unremarkable Visual acuity 20/40 right eye 20/70 left eye 20/70 both eyes Normal inspection of the eyelids Patient does have a subconjunctival hemorrhage along the medial left eye as well as some conjunctival injection and chemosis appreciate any obvious foreign body, eyelids were everted Anterior chamber is deep and quiet no hyphema Test Results: Not indicated Emergency Department Course and Treatment: Tetracaine and fluorescein was instilled in the left eye. However the slit-lamp is nonfunctional. Additionally no Arrington lamp or cobalt blue light was available. I am unable to adequately evaluate for corneal injury or Susan sign. However given that her injury was several days ago I do not believe that this requires emergent transfer to another emergency department or emergent ophthalmology evaluation. I did speak to ophthalmology on-call, Dr. Woods who will see the patient in the office today. He asked that the patient call sooner the office opens and he will evaluate her. We will empirically treat the patient with gentamicin drops. Patient understands to follow-up without fail. She understands to return for new or worsening symptoms. Patient discharged. Treatment Plan: [] Disposition: Discharge Impression: Acute left eye pain Left eye injury This note was generated with [employer] dictation software. It may contain incorrect words, spelling, and punctuation that were not noted in review of the chart prior to signing ED Disposition - Plan for ED Patient: Chief Complaint: Eye Problem Referrals: Kishore Blood MD [Primary Care Provider] -
--- NOTE | 2018-01-01 02:56 | ED.DEP ---
ED Disposition - Plan for ED Patient: Chief Complaint: Eye Problem Instructions: ED Corneal Injury Contact Lens Referrals: Kishore Blood MD [Primary Care Provider] - Mathew Woods MD [STAFF PHYSICIAN] -
[2018-01-01] MEDS: Gentamicin Sulfate 1 OPTH.BTL 1 DRP LEFT EYE (03:06)
[2018-01-01 03:08] VITALS: RESP 18
== END 2018-01-01 03:08 | disposition home or self-care (01) ==
LOC: ED 03:00
PROVIDERS: Emergency Provider Emergency Medicine; Family Provider Family Medicine; PCP Family Medicine
DX: H11.32 Conjunctival hemorrhage, left eye (principal); S05.92XA Unspecified injury of left eye and orbit, initial encounter; H57.12 Ocular pain, left eye; W22.8XXA Striking against or struck by other objects, initial encounter; Y93.9 Activity, unspecified; Y92.9 Unspecified place or not applicable; Y99.9 Unspecified external cause status; Z79.899 Other long term (current) drug therapy
CPT/HCPCS: 99283

== ENCOUNTER 2018-03-16 12:43 | Emergency (ER) | payer MEDICAID, SELFPAY ==
[2018-03-16 12:43] VITALS: BP 126/73; PULSE 98; RESP 16; TEMP 35.9; O2SAT 98; BMI 23.8
[2018-03-16 12:53] VITALS: BP 132/70; PULSE 85; RESP 14; O2SAT 98
--- NOTE | 2018-03-16 13:15 | ED.DCSUM_ITS ---
- ER Visit Summary Date of Service: 03/16/18 Chief Complaint: Low back pain History of Present Illness: The patient is a 33 F who presents with low back pain. Patient has had this for 3 days. She states she fell down some steps a couple of days ago. It sharp in the lumbar area. Is worse with movement. No numbness or tingling to her legs. Denies any bowel or bladder incontinence. Patient has been trying ibuprofen without any relief. She has been seen here a couple of times previously for previous back pain issues. Physical Examination: Vital signs reviewed. HEENT exam unremarkable. Heart is regular rate and rhythm without murmurs. Lungs are clear to auscultation. Abd omen is soft and nontender. Back is tender in the right paraspinal and spinal area of the lumbar region. Extremities reveal no edema. Skin exam normal. Neurologic exam normal. Test Results: Lumbar x-rays are negative Emergency Department Course and Treatment: Patient was given naproxen. I went to reevaluate her she had eloped from the emergency department and could not be found. All attempts were made to locate the patient. Regardless, is going to discharge her with NSAIDs and she will need to follow-up with her PCP. Treatment Plan: [] Disposition: Discharge Impression: Lumbar contusion This note was generated with [employer] dictation software. It may contain incorrect words, spelling, and punctuation that were not noted in review of the chart prior to signing ED Disposition - Plan for ED Patient: Chief Complaint: Back Referrals: Kishore Blood MD [Primary Care Provider] -
[2018-03-16] MEDS: Naproxen 500 MG Tablet PO (13:16)
--- NOTE | 2018-03-16 13:17 | RAD_ITS ---
STUDY: X-RAY - LUMBAR SPINE REASON FOR EXAM: Female, 33 years old. Low back pain. TECHNIQUE: 3 view(s) of the lumbar spine were obtained. COMPARISON: Comparison is made with prior study dated May 27, 2016. FINDINGS: Normal lumbar lordosis. There is a minimal dextroscoliosis of the lumbar spine. There is a normal alignment of the vertebrae. Normal vertebral bodies and endplates. Normal disc space heights. The soft tissue structures are unremarkable. RAD/Lumbar Spine 2 or 3 Views IMPRESSION: Minimal dextroscoliosis most likely secondary to positioning. Electronically Signed: Johnathan Adair MD at 14:45 EDT Tel [phone], Service support ,
--- NOTE | 2018-03-16 14:48 | ED.DEP ---
ED Disposition - Plan for ED Patient: Disposition: Home or Assisted Living Chief Complaint: Back Instructions: ED Sprain Strain Lumbar Referrals: Kishore Blood MD [Primary Care Provider] -
== END 2018-03-16 15:01 | disposition home or self-care (01) ==
PROVIDERS: Emergency Provider Emergency Medicine; Family Provider Family Medicine; PCP Family Medicine
DX: S30.0XXA Contusion of lower back and pelvis, initial encounter (principal); W10.9XXA Fall (on) (from) unspecified stairs and steps, initial encounter; Y93.9 Activity, unspecified; Y92.9 Unspecified place or not applicable; Y99.9 Unspecified external cause status; Z79.899 Other long term (current) drug therapy
CPT/HCPCS: 72100; 99283

== ENCOUNTER 2018-03-30 22:17 | Emergency (ER) | payer MEDICAID, SELFPAY ==
[2018-03-30 22:18] VITALS: BP 140/75; PULSE 64; RESP 13; TEMP 37.3; O2SAT 98; BMI 23.8
--- NOTE | 2018-03-30 22:57 | ED.DCSUM_ITS ---
- ER Visit Summary Date of Service: 03/30/18 Chief Complaint: Back pain and dental pain History of Present Illness: The patient is a 33 F patient presents with back pain and dental pain dental pain has been ongoing for a few days and she thinks she tastes pus. She has widespread dental decay but she especially is complaining of right lower to central teeth that have been were hurting more than normal. She also has back pain she has had back pain for about 2 weeks after fall on her buttocks. She has numbness in her middle 3 toes. She has no bowel or bladder compromise. She is able to ambulate well. She has no urinary retention. She has no saddle anesthesia. Physical Examination: Not appear in acute distress. Moist mucous membranes, no obvious facial deformity. She has decayed lower central teeth. There is no obvious dental abscess. They are black. No C-spine tenderness supple neck. Regular rate and rhythm without any obvious murmurs Clear lungs bilaterally speaking in full sentences without any obvious respiratory distress Abdomen soft and nontender no guarding or rebound Moves all extremities without any difficulty or pain. She has tenderness over the right paraspinal part of her back without any obvious contusion. She has a negative straight leg test. She has normal plantar flexion of both feet she has normal dorsiflexion of both great toes. She has unremarkable reflexes. Skin does not show any obvious rashes or lesions, no trauma. Alert oriented ?3 with no gross focal deficit Emergency Department Course and Treatment: I reassured her about the back pain. There are no red flags. She will be given antibiotics for her dental pain and Naprosyn. Discharge stable condition Impression: Odontalgia Back pain This note was generated with [employer] dictation software. It may contain incorrect words, spelling, and punctuation that were not noted in review of the chart prior to signing ED Disposition - Plan for ED Patient: Disposition: Home or Assisted Living Chief Complaint: Back Instructions: ED Contusion Back, ED Tooth Pain Prescriptions: Naproxen [Naprosyn] 500 mg PO BID PRN #20 tab Clindamycin [Cleocin] 150 mg PO 4X/DAY #40 cap Referrals: Kishore Blood MD [Primary Care Provider] - 3-5 Days
[2018-03-30] MEDS: HYDROcodone Bitartrate/Apap 5/325 Tablet PO (23:24)
== END 2018-03-30 23:26 | disposition home or self-care (01) ==
LOC: ED 23:11
PROVIDERS: Emergency Provider Emergency Medicine; Family Provider Family Medicine; PCP Family Medicine
DX: M54.9 Dorsalgia, unspecified (principal); K08.89 Other specified disorders of teeth and supporting structures; K02.9 Dental caries, unspecified; R20.0 Anesthesia of skin; Z79.899 Other long term (current) drug therapy
CPT/HCPCS: 99283

== ENCOUNTER 2018-04-30 19:57 | Emergency (ER) | payer MEDICAID, SELFPAY ==
[2018-04-30 19:59] VITALS: BP 137/80; PULSE 109; PULSE 118; RESP 18; RESP 20; TEMP 36.7; O2SAT 97; O2SAT 99; BMI 22.1
--- NOTE | 2018-04-30 20:34 | ED.DCSUM_ITS ---
- ER Visit Summary Date of Service: 04/30/18 Chief Complaint: lower abdominal and back pain History of Present Illness: The patient is a 33 F who presents for 2 days of pelvic pain and lower back pain. Patient has been having low back pain and pelvic pain, mainly on the right, for the last 2 days with nausea and subjective fever. She was seen in urgent care 2 nights ago concern for a UTI. She thinks she may have left a tampon in 2 weeks ago. She noted today a change in her vaginal odor. No vaginal discharge. She has been with one partner for the last 9 months and does not think she has been exposed to sexually transmitted infection. She denies any diarrhea, chest pain, shortness of breath, rash or other complaints. She is tried ibuprofen without relief. Physical Examination: Vital signs: afebrile, hemodynamically stable, no hypoxia on room air General: well nourished, well developed, in no distress Skin: warm, dry, no rash, no pallor HEENT: normocephalic and atraumatic; PERRL, EOMI, moist mucous membranes Cardiovascular: Tachycardic rate and rhythm without murmurs, no peripheral edema, 2+ pulses all distal extremities Respiratory: No increased work of breathing, lungs are clear to auscultation bilaterally, no rales, rhonchi or wheezing Abdominal: Abdomen is soft, prepubic and right pelvic tenderness with no mass noted, with normoactive bowel sounds, no guarding or rebound, no CVA tenderness, tenderness to palpation of the low back MSK: Moves all extremities, no deformities, normal strength Neuro: Awake and alert, oriented ?4. No facial droop, sensation and motor function intact and symmetric Test Results: Abnormal Lab Results 04/30/18 04/30/18 04/30/18 20:40 20:40 21:23 WBC 5.1 RBC 4.88 Hgb 13.8 Hct 43.4 MCV 88.9 MCH 28.3 MCHC 31.8 L RDW 13.9 RDW Differential 45.1 H Plt Count 212 MPV 10.2 Immature Gran % (Auto) 0.200 Neut % (Auto) 71.2 H Lymph % (Auto) 19.5 Bullitt % (Auto) 7.9 Eos % (Auto) 1.0 Baso % (Auto) 0.2 Absolute Neuts (auto) 3.6 Absolute Lymphs (auto) 0.99 Total Counted Not Reportable Sodium 139 Potassium 3.5 Chloride 104 Carbon Dioxide 29.0 Anion Gap 6 BUN 15 Creatinine 0.96 Estim Creat Clear Calc 65.92 Est GFR (MDRD) Af Amer 86 Est GFR (MDRD) Non-Af 71 BUN/Creatinine Ratio 15.6 Glucose 101 Calcium 8.9 Urine Color Urine Clarity Urine pH Ur Specific Woodward Urine Protein Urine Glucose (UA) Urine Ketones Urine Occult Blood Urine Nitrite Urine Bilirubin Urine Urobilinogen Ur Leukocyte Esterase Urine RBC Urine WBC Ur Squamous Epith Cells Urine Bacteria Urine Mucus Urine Test Negative T. vaginalis (PCR) 04/30/18 04/30/18 21:23 22:05 WBC RBC Hgb Hct MCV MCH MCHC RDW RDW Differential Plt Count MPV Immature Gran % (Auto) Neut % (Auto) Lymph % (Auto) Bull[place] % (Auto) Eos % (Auto) Baso % (Auto) Absolute Neuts (auto) Absolute Lymphs (auto) Total Counted Sodium Potassium Chloride Carbon Dioxide Anion Gap BUN Creatinine Estim Creat Clear Calc Est GFR (MDRD) Af Amer Est GFR (MDRD) Non-Af BUN/Creatinine Ratio Glucose Calcium Urine Color Yellow Urine Clarity Sl. Cloudy Urine pH 6.0 Ur Specific Woodward 1.015 Urine Protein 30 H Urine Glucose (UA) Normal Urine Ketones 5 H Urine Occult Blood 50 H Urine Nitrite Negative Urine Bilirubin Negative Urine Urobilinogen Normal Ur Leukocyte Esterase 25 H Urine RBC 0 SEEN Urine WBC 0-5 SEEN Ur Squamous Epith Cells 10-25 SEEN Urine Bacteria RARE Urine Mucus 2+ Urine Test T. vaginalis (PCR) Negative Clinical Impression(s) from Imaging Studies Transvaginal US 04/30/18 22:48 IMPRESSION: Normal retroverted uterus. Normal right ovary with the largest follicle 13 x 11 x 10 mm. Otherwise negative for cyst. Normal Doppler flow. Normal size of the left ovary. The largest follicle is 2.4 x 1.6 x 1.6 cm. This is in the same location and may be the same cyst as has been previously identified and the left ovary but is smaller. Negative for other adnexal masses. Minimal free fluid. Electronically Signed: Dai Angel MD at 23:53 EST , Service support , Medications Given Discontinued Medications Sodium Chloride () 1,000 mls @ 1,000 mls/hr IV .Q1H ONE Stop: 04/30/18 21:31 Last Admin: 04/30/18 20:50 Dose: 1,000 mls/hr Morphine Sulfate () 4 mg IV X1 ONE Stop: 04/30/18 20:34 Last Admin: 04/30/18 20:50 Dose: 4 mg Naproxen (Naprosyn) 500 mg PO X1 ONE Stop: 04/30/18 22:48 Last Admin: 04/30/18 22:54 Dose: 500 mg Ondansetron HCl (Zofran) 4 mg IV X1 ONE Stop: 04/30/18 20:33 Last Admin: 04/30/18 20:51 Dose: 4 mg Emergency Department Course and Treatment: Pelvic exam was performed that showed no retained tampon or other foreign bodies. Patient had 10 watery discharge without foul odor noted. She had no cervical motion tenderness and no adnexal masses or severe tenderness but did have suprapubic and right pelvic tenderness to palpation. Patient had no leukocytosis, urine was negative for infection. negative. Patient given zofran and morphine for symptoms. Patient tachycardic on initial evaluation and thus given IV fluids for hydration. Trichomonas negative, GC and Chlamydia are pending. Patient workup is not consistent with pyelonephritis and her history and exam was not concerning for renal colic. Patient also had a nonsurgical abdomen, no McBurney's point tenderness, and history and workup were less concerning for acute appendicitis. Because of the right pelvic pain, torsion is on the differential, as patient did not have significant improvement of her pain with morphine. Ultrasound was performed and showed no signs of torsion and no acute process. She was reevaluated and still was complaining of some discomfort, however she is well- appearing at this time, has been eating and drinking well workup in progress, and is moving around without obvious discomfort. She already has a prescription for ibuprofen at home. She will be given a prescription for Zofran for further nausea. Patient will follow up with her personal care aid and was discharged home. Treatment Plan: [] Disposition: [] Impression: right pelvic pain This note was generated with [employer] dictation software. It may contain incorrect words, spelling, and punctuation that were not noted in review of the chart prior to signing ED Disposition - Plan for ED Patient: Chief Complaint: Female C/O Referrals: Kishore Blood MD [Primary Care Provider] -
[2018-04-30] MEDS: 0.9% Normal Saline 1,000 ML 1000 ML IV (20:50)
[2018-04-30] MEDS: Morphine 4 MG/ML Syringe IV (20:50)
[2018-04-30] MEDS: Ondansetron 4 MG/2 ML Vial IV (20:51)
[2018-04-30 21:21] LABS: Absolute Lymphocyte Count 0.99 X10^3/ul (0.83-4.51); Absolute Neutrophil Count 3.6 X10^3/uL (2.0-7.7); Basophil# 0.01 X10^3/uL; Basophil% 0.2 % (0-1); Eosinophil# 0.05 X10^3/uL; Hematocrit 43.4 % (37-47); Hemoglobin 13.8 g/dl (12.0-15.0); Lymphocyte # 0.99 X10^3/ul (4.0); Lymphocyte % 19.5 % (19-41); Mean Corp Hgb Conc 31.8 g/gl (32-36); Mean Corpuscular Hgb 28.3 pg (27.0-32.0); Mean Corpuscular Volume 88.9 fL (81-99); Mean Platelet Vol. 10.2 fl (6.2-12.0); Monocyte% 7.9 % (0-10); Neutrophil # 3.61 X10^3/uL (2.7-7.7); Neutrophil % 71.2 % (47-70); Platelet Count 212 K/mm3 (150-450); RBC Distribution Width CV 13.9 % (11.6-14.6); RBC Distribution Width SD 45.1 fl (35.1-43.9); Red Blood Count 4.88 M/mm3 (4.2-5.4); White Blood Count 5.1 K/mm3 (4.4-11.0)
[2018-04-30 21:22] LABS: POSITIVE COUNT NO; POSITIVE DIFFERENTIAL NO; POSITIVE MORPHOLOGY NO
[2018-04-30 21:36] LABS: Red Blood Cells-Urine 0 SEEN /hpf (0-5)
[2018-04-30 21:40] LABS: Internal QC Validated? YES +Cl - CLEAR BKGD; Pregnancy, Urine Negative Negative
[2018-04-30 21:42] LABS: Color, Urine Yellow (Yellow); Glucose, Dipstick Normal (Normal); Ketone-Dipstick 5 mg/dl (Negative); Leukocyte Esterase-Dipstick 25 /ul (Negative); Nitrite-Dipstick Negative (Negative); Occult Blood-Urine 50 /ul (Negative); Protein-Dipstick 30 mg/dl (Negative); Specific Gravity, Urine 1.015 (1.002-1.030); Urine Bilirubin Dipstick Negative (Negative); Urine Clarity Sl. Cloudy (Clear); Urine Urobilinogen Normal (Normal)
[2018-04-30 21:48] LABS: Bacteria RARE /hpf (None Seen); Mucous, Urine 2+ /hpf (<or=2+); Squamous Epithelial Cells - UA 10-25 SEEN /hpf (5-10); White Blood Cells 0-5 SEEN /hpf (0-5)
[2018-04-30 21:58] VITALS: RESP 12
[2018-04-30 22:23] LABS: Anion Gap 6 (5-15); BUN 15 mg/dL (7-18); BUN/Creat Ratio 15.6 RATIO (10-20); Calcium,Total 8.9 mg/dL (8.5-10.1); Chloride 104 mmol/L (98-107); Creatinine, Serum 0.96 mg/dL (0.55-1.02); EST Glomerular Filtration Rate 71 mL/min (>60); Est Glom Filt Rate - Afr Amer 86 mL/min (>60); Estimated Creatinine Clearance 65.92 ml/min; Glucose 101 mg/dL (74-106); Potassium 3.5 mmol/L (3.5-5.1); Sodium Level 139 mmol/L (136-145)
--- NOTE | 2018-04-30 22:48 | US_ITS ---
STUDY: ULTRASOUND OF THE FEMALE PELVIS - COMPLETE REASON FOR EXAM: Female, 33 years old. Right lower quadrant pain LMP: 04/23/2018 TECHNIQUE: Transvaginal real-time exam with snider scale image documentation. TECHNICAL QUALITY: Adequate. COMPARISON: Prior pelvic ultrasound of August 27, 2017 FINDINGS: The uterus is retroverted and is in a midline position. The uterus measures 6.8 x 6.0 x 4.7 cm. Nabothian cysts of the cervix. The endometrium measures 9 mm in thickness, and is striated. There is no demonstrated endometrial mass. There is no demonstrated myometrial mass. I.U.D. - The patient does not have an I.U.D. The right ovary is visualized. The right ovary measures 3.0 x 2.2 x 1.6 cm. The largest follicle is 13 x 11 x 10 mm There is no visualized right adnexal mass or complex lesion. There is normal arterial and normal venous vascularity. The left ovary is visualized. The left ovary measures 3.7 x 2.4 x 1.7 cm. The largest follicle is 2.4 x 1.6 x 1.6 cm. This may be the same cyst as on the prior examination but appears slightly smaller on [id number] comparison. There is no visualized left adnexal mass or complex lesion. There is normal arterial and normal venous vascularity. There is minimal fluid in the cul-de-sac. Nondistended urinary bladder. Polycystic ovary disease: No. US/Transvaginal Non- IMPRESSION: Normal retroverted uterus. Normal right ovary with the largest follicle 13 x 11 x 10 mm. Otherwise negative for cyst. Normal Doppler flow. Normal size of the left ovary. The largest follicle is 2.4 x 1.6 x 1.6 cm. This is in the same location and may be the same cyst as has been previously identified and the left ovary but is smaller. Negative for other adnexal masses. Minimal free fluid. Electronically Signed: Dai Angel MD at 23:53 EST , Service support ,
[2018-04-30] MEDS: Naproxen 500 MG Tablet PO (22:54)
[2018-04-30 23:38] LABS: Probe Check PASS; Sample Adequacy Control PASS; Specimen Processing Control PASS; Trichomonas Vag DNA by PCR Negative (Negative)
--- NOTE | 2018-05-01 00:05 | ED.DEP ---
ED Disposition - Plan for ED Patient: Disposition: Home or Assisted Living Chief Complaint: Female C/O Instructions: ED Pelvic Pain [facility] Prescriptions: Ondansetron [Zofran Odt] 4 mg PO Q8H PRN PRN #10 tab.rapdis PRN Reason: Nausea Referrals: Kishore Blood MD [Primary Care Provider] - 3-5 Days if not improving
[2018-05-01 00:08] LABS: Chlamydia Trachomatis by PCR Negative (Negative); Neisserai gonorrhoeae by PCR Negative (Negative); Probe Check PASS; Sample Adequacy Control PASS; Specimen Processing Control PASS
[2018-05-01 00:17] VITALS: BP 116/71; PULSE 98; RESP 20; O2SAT 96
== END 2018-05-01 00:18 | disposition home or self-care (01) ==
PROVIDERS: Emergency Provider Emergency Medicine; Family Provider Family Medicine; PCP Family Medicine
DX: R10.2 Pelvic and perineal pain (principal); R30.0 Dysuria; R35.0 Frequency of micturition; R00.0 Tachycardia, unspecified; R11.0 Nausea; Z79.899 Other long term (current) drug therapy
CPT/HCPCS: 76830; 80048; 81001; 81025; 85025; 87491; 87591; 87661; 93976; 96361; 96374; 96375; 99284; J7030; A4216; J2405

== ENCOUNTER 2018-09-14 14:34 | Emergency (ER) | payer MEDICAID, SELFPAY ==
[2018-09-14 14:35] VITALS: BP 161/112; PULSE 102; RESP 18; TEMP 36.3; BMI 23.2
--- NOTE | 2018-09-14 15:06 | EKG12_ITS ---
Test Reason : DIZZY Blood Pressure : / mmHG Vent. Rate : 076 BPM Atrial Rate : 076 BPM P-R Int : 102 ms QRS Dur : 084 ms QT Int : 342 ms P-R-T Axes : -18 012 036 degrees QTc Int : 384 ms Sinus rhythm with short PA Septal infarct , age undetermined , cannot be excluded Abnormal ECG Confirmed by HOWARD ESPARZA, LUZ MARINA ([id number]), proposal editor MARIBELL ACEVEDO ([id number]) on 09/18/2018 11:29:31 AM Referred By: CHERELLE Confirmed By:LUZ MARINA LAWRENCE MD
[2018-09-14 15:29] LABS: Absolute Lymphocyte Count 1.35 X10^3/ul (0.83-4.51); Absolute Neutrophil Count 3.6 X10^3/uL (2.0-7.7); Basophil# 0.02 X10^3/uL; Basophil% 0.4 % (0-1); Eosinophil# 0.09 X10^3/uL; Eosinophils% 1.6 % (0-5); Hemoglobin 13.9 g/dl (12.0-15.0); Lymphocyte # 1.35 X10^3/ul (4.0); Lymphocyte % 24.6 % (19-41); Mean Corp Hgb Conc 32.3 g/gl (32-36); Mean Corpuscular Hgb 28.4 pg (27.0-32.0); Mean Corpuscular Volume 87.8 fL (81-99); Mean Platelet Vol. 9.7 fl (6.2-12.0); Monocyte# 0.39 X10^3/uL; Monocyte% 7.1 % (0-10); Neutrophil # 3.63 X10^3/uL (2.7-7.7); Neutrophil % 66.1 % (47-70); Platelet Count 227 K/mm3 (150-450); RBC Distribution Width CV 13.9 % (11.6-14.6); RBC Distribution Width SD 44.5 fl (35.1-43.9); White Blood Count 5.5 K/mm3 (4.4-11.0)
[2018-09-14 15:30] LABS: POSITIVE COUNT NO; POSITIVE DIFFERENTIAL NO; POSITIVE MORPHOLOGY NO
--- NOTE | 2018-09-14 15:30 | ED.VISSUMM ---
- ER Visit Summary Date of Service: 09/14/18 Chief Complaint: Accidental overdose History of Present Illness: The patient is a 33 F with history of opiate and methamphetamine abuse presents to the emergency department after an accidental overdose. The patient does have history of chronic back pain. She was in pain management and was on gabapentin. About a month ago, she did have a dirty urine and was kicked out of pain management. Since then, she is been buying gabapentin off the street and using methamphetamine and heroin. She used today and was was confused and feeling dizzy. She never lost consciousness. She is currently active with 180. She denies being suicidal or homicidal. Physical Examination: Vital signs reviewed General: Well-nourished, well-developed Head: Normocephalic, atraumatic Eyes: Pupils equal and reactive, extraocular muscles intact Neck, supple, no lymphadenopathy Heart: Regular rate and rhythm Respiratory: No distress, clear bilaterally Abdomen: Soft, nontender, nondistended, no peritoneal signs Back: Nontender Extremities: Nontender, no edema, no cords Skin: Normal color no rash Neuro: Alert and oriented, no focal or lateralizing deficits Test Results: [] Emergency Department Course and Treatment: [The patient presents after an accidental overdose. She does admit to occasional opiate abuse. I did have the patient evaluated by [facility]. Unfortunately, she does not have dependence on these opiates. She does not meet criteria for admission. Patient is currently active with 180. Screening labs are unremarkable. The patient was observed for 2 hours and has had improvement of symptoms. At this time, she is not suicidal, is not homicidal, she does have forward thinking. The patient will be discharged to follow-up with 180. Treatment Plan: [] Disposition: Discharge Impression: 1. Accidental opiate overdose This note was generated with [employer] software. It may contain incorrect words, spelling, and punctuation that were not noted in review of the chart prior to signing ED Disposition - Plan for ED Patient: Instructions: ED Overdose Opiate Referrals: Care Physician,No Primary [Primary Care Provider] -
[2018-09-14 15:44] LABS: ALB/GLOB Ratio 1.1 RATIO (0.9-2.4); AST(SGOT) 17 U/L (15-37); Alanine Aminotransfer ALT/SGPT 24 U/L (13-56); Albumin, Serum 4.1 g/dL (3.2-5.0); Alkaline Phosphatase 70 U/L (45-117); Anion Gap 2 (5-15); BUN 8 mg/dL (7-18); BUN/Creat Ratio 9.5 RATIO (10-20); Calcium,Total 8.6 mg/dL (8.5-10.1); Chloride 107 mmol/L (98-107); Creatinine, Serum 0.84 mg/dL (0.55-1.02); EST Glomerular Filtration Rate 83 mL/min (>60); Est Glom Filt Rate - Afr Amer 100 mL/min (>60); Estimated Creatinine Clearance 75.34 ml/min; Globulin 3.6 g/dL (2.2-4.2); Glucose 93 mg/dL (74-106); Potassium 3.6 mmol/L (3.5-5.1); Protein, Total 7.7 g/dL (6.4-8.2); Sodium Level 139 mmol/L (136-145)
[2018-09-14 15:54] VITALS: PULSE 110; RESP 24; O2SAT 100
[2018-09-14] MEDS: Ondansetron 4 MG/2 ML Vial IV (15:55)
[2018-09-14] MEDS: 0.9% Normal Saline 1,000 ML 1000 ML IV (15:55)
[2018-09-14 16:06] LABS: Color, Urine Yellow (Yellow); Glucose, Dipstick Normal (Normal); Ketone-Dipstick 5 mg/dl (Negative); Leukocyte Esterase-Dipstick 25 /ul (Negative); Nitrite-Dipstick Negative (Negative); Occult Blood-Urine Negative /ul (Negative); Protein-Dipstick 30 mg/dl (Negative); Urine Bilirubin Dipstick Negative (Negative); Urine Clarity Sl. Cloudy (Clear); Urine Urobilinogen Normal (Normal)
[2018-09-14 16:09] LABS: Internal QC Validated? YES +Cl - CLEAR BKGD; Pregnancy, Urine Negative Negative
[2018-09-14 16:10] VITALS: BP 114/87; PULSE 111; RESP 16; O2SAT 97
[2018-09-14 16:13] LABS: Alcohol, Blood (Medical)-Serum < 3.0 mg/dL
[2018-09-14 16:34] LABS: Amphetamine Urine VISTA POSITIVE (<1000 ng/mL); Barbiturate Urine VISTA NEGATIVE (< 200 ng/mL); Benzodiazepine Urine VISTA NEGATIVE (< 200 ng/mL); Cocaine Urine VISTA NEGATIVE (< 300 ng/mL); Ecstacy Urine VISTA POSITIVE (< 500 ng/mL); Methadone Urine VISTA NEGATIVE (< 300 ng/mL); PCP Urine VISTA NEGATIVE (< 25 ng/mL); THC Urine VISTA NEGATIVE (< 50 ng/mL); Vista UDS pH Range 5
[2018-09-14 16:35] LABS: Bacteria 1+ /hpf (None Seen); Mucous, Urine 3+ /hpf (<or=2+); Red Blood Cells-Urine 0-5 SEEN /hpf (0-5); Squamous Epithelial Cells - UA 5-10 SEEN /hpf (5-10); White Blood Cells 0-5 SEEN /hpf (0-5)
[2018-09-14 17:02] VITALS: BP 142/67; PULSE 109; RESP 16; O2SAT 97
== END 2018-09-14 17:03 | disposition home or self-care (01) ==
PROVIDERS: Emergency Provider Emergency Medicine
DX: T40.1X1A Poisoning by heroin, accidental (unintentional), initial encounter (principal); T43.621A Poisoning by amphetamines, accidental (unintentional), initial encounter; Y92.9 Unspecified place or not applicable; F15.10 Other stimulant abuse, uncomplicated; F11.10 Opioid abuse, uncomplicated; M54.9 Dorsalgia, unspecified; G89.29 Other chronic pain
CPT/HCPCS: 80053; 80307; 80320; 81001; 81025; 85025; 93005; 96361; 96374; 99284; J7030; G0480; J2405

== ENCOUNTER 2018-11-20 18:51 | Emergency (ER) | payer MEDICAID, SELFPAY ==
[2018-11-20 18:51] VITALS: BP 119/82; PULSE 90; RESP 18; TEMP 36.1; O2SAT 97; BMI 22.8
[2018-11-20 20:42] VITALS: RESP 18
[2018-11-20] MEDS: Tetracaine 0.5% Ophthalmic Bottle 1 DRP EACH EYE (20:45)
[2018-11-20] MEDS: Fluorescein 1 MG STRIP 1 STRIP EACH EYE (20:45)
--- NOTE | 2018-11-20 20:59 | ED.VISSUMM ---
- ER Visit Summary Date of Service: 11/20/18 Chief Complaint: Bilateral eye pain History of Present Illness: The patient is a 33 F who presents with bilateral eye pain that began approximately 5 hours prior to arrival. Patient states she has been having redness and pain in both eyes. Patient states she has been rubbing both eyes. Patient states the pain is worse with light. Patient denies any trauma or injury. Patient states she does wear contact lenses. Patient admits to some blurred vision from her right eye. Patient states her right eye pain is worse than her left. Physical Examination: Vital signs are stable. Patient is afebrile. Patient is in no acute distress. Pupils are equal, round, and reactive to light bilaterally. Extraocular muscles are intact. Conjunctiva is diffusely injected bilaterally. Tetracaine and fluorescein dye was applied. There are multiple abrasions over the corneas bilaterally. Anterior chamber was clear. There is no hyphema. Intraocular pressures were measured and were 13 on the right and 15 on the left. Neck is supple. Trachea is midline. There is no JVD noted. Cranial nerves II through XII are intact. There are no focal motor or sensory deficits noted. Emergency Department Course and Treatment: Visual acuity was 20/200 on the right and 20/70 on the left. Patient was ordered gentamycin ophthalmic ointment however this was unavailable.. Patient was given p.o. when we were looking for a substitute eye ointment for her, the patient left without receiving any eye ointment or discharge instructions. Disposition: Discharge home Impression: Bilateral corneal abrasions This note was generated with [employer] dictation software. It may contain incorrect words, spelling, and punctuation that were not noted in review of the chart prior to signing ED Disposition - Plan for ED Patient: Disposition: Home or Assisted Living Diagnosis: Corneal abrasion of both eyes Instructions: ED Eye Injury Corneal Abrasion Referrals: Care Physician,No Primary [Primary Care Provider] -
--- NOTE | 2018-11-20 21:27 | ED.RN ---
PATIENT LEFT WITHOUT MEDICATION AND DISCHARGE INSTRUCTIONS. DR. DOMINGUEZ NOTIFIED.
== END 2018-11-20 21:29 | disposition home or self-care (01) ==
PROVIDERS: Emergency Provider Emergency Medicine
DX: S05.01XA Injury of conjunctiva and corneal abrasion without foreign body, right eye, initial encounter (principal); S05.02XA Injury of conjunctiva and corneal abrasion without foreign body, left eye, initial encounter; X58.XXXA Exposure to other specified factors, initial encounter; Y93.9 Activity, unspecified; Y92.9 Unspecified place or not applicable; Y99.9 Unspecified external cause status
CPT/HCPCS: 99283

== ENCOUNTER 2018-11-26 14:08 | Emergency (ER) | payer MEDICAID, SELFPAY ==
[2018-11-26 14:10] VITALS: BP 118/72; PULSE 89; RESP 16; TEMP 36.9; O2SAT 99; BMI 24.0
--- NOTE | 2018-11-26 15:11 | CM.ED ---
SOCIAL WORK INFORMANT: SELF REFERRAL REASON FOR REFERRAL: NO PRIMARY CARE PHYSICIAN MET WITH PATIENT IN ROOM. INTRODUCED ROLE AND REASON FOR REFERRAL. PATIENT STATES DOES NOT HAVE PRIMARY CARE AND IS OPEN TO LIST OF LOCAL PHYSICIANS. LIST GIVEN AND REVIEWED WITH PATIENT. PATIENT DENIES ANY FURTHER NEEDS. JIN MONZON, ELECTRONICS LEAD, WATER AND GAS HELPER.
[2018-11-26] MEDS: Fluorescein 1 MG STRIP 1 STRIP EACH EYE (15:35)
--- NOTE | 2018-11-26 16:04 | ED.VISSUMM ---
- ER Visit Summary Date of Service: 11/26/18 Chief Complaint: Red eyes History of Present Illness: The patient is a 33 F patient presents with red eyes for 4 days. They are painful and watery. Patient has been using her contact lenses intermittently. Denies any other associated symptoms like visual changes. Denies fever or systemic symptoms. Physical Examination: Afebrile and vital signs unremarkable. Extraocular structures and head and neck are unremarkable. Conjunctive and sclera are injected. Pupils unremarkable, reactive, extraocular motion normal. Visual acuity intact in all cash. Test Results: None Emergency Department Course and Treatment: Tetracaine was applied. Patient had resolution of her pain. Fluoroscein instilled. Patient has a linear abrasion to her right cornea, centrally located. Otherwise exam unremarkable. No foreign bodies were noted on lid eversion. Patient was advised to discontinue contact lens use. Because of her contact lens use. We will treat with a louis quinolone. Will prescribe Levaquin drops. Follow-up with ophthalmology tomorrow. Treatment Plan: As above Disposition: Discharge Impression: 1. Bilateral conjunctivitis This note was generated with [employer] dictation software. It may contain incorrect words, spelling, and punctuation that were not noted in review of the chart prior to signing ED Disposition - Plan for ED Patient: Referrals: Care Physician,No Primary [Primary Care Provider] -
--- NOTE | 2018-11-26 16:07 | ED.DCSUM_ITS ---
- ER Visit Summary Date of Service: 11/26/18 Chief Complaint: Red eyes History of Present Illness: The patient is a 33 F patient presents with red eyes for 4 days. They are painful and watery. Patient has been using her contact lenses intermittently. Denies any other associated symptoms like visual fan es. Denies fever or systemic symptoms. Physical Examination: Afebrile and vital signs unremarkable. Extraocular structures and head and neck are unremarkable. Conjunctive and sclera are injected. Pupils unremarkable, reactive, extraocular motion normal. Visual acuity intact in all cash. Test Results: None Emergency Department Course and Treatment: Tetracaine was applied. Patient had resolution of her pain. Fluoroscein instilled. Patient has a linear abrasion to her right cornea, centrally located. Otherwise exam unremarkable. No foreign bodies were noted on lid eversion. Patient was advised to discontinue contact lens use. Because of her contact lens use. We will treat with a louis quinolone. Will prescribe Levaquin drops. Follow-up with ophthalmology tomorrow. Treatment Plan: As above Disposition: Discharge Impression: 1. Bilateral conjunctivitis This note was generated with [employer] dictation software. It may contain incorrect words, spelling, and punctuation that were not noted in review of the chart prior to signing ED Disposition - Plan for ED Patient: Referrals: Care Physician,No Primary [Primary Care Provider] -
--- NOTE | 2018-11-26 16:07 | ED.DEP ---
ED Disposition - Plan for ED Patient: Instructions: ED Conjunctivitis Bacterial Prescriptions: Levofloxacin 5 ml OP Q2H #1 bottle Referrals: Mathew Woods MD [STAFF PHYSICIAN] -
[2018-11-26 16:14] VITALS: BP 123/76; PULSE 77; RESP 15; O2SAT 99
[2018-11-26] MEDS: Tetracaine 0.5% Ophthalmic Bottle 1 DRP EACH EYE (16:18)
== END 2018-11-26 16:16 | disposition home or self-care (01) ==
PROVIDERS: Emergency Provider Emergency Medicine
DX: H10.9 Unspecified conjunctivitis (principal); H18.821 Corneal disorder due to contact lens, right eye
CPT/HCPCS: 99283

== ENCOUNTER 2018-12-26 07:34 | Emergency (ER) | payer MEDICAID, SELFPAY ==
[2018-12-26 07:35] VITALS: BP 122/70; PULSE 94; RESP 14; TEMP 36.9; O2SAT 93; BMI 21.4
--- NOTE | 2018-12-26 07:40 | ED.DCSUM_ITS ---
History of Present Illness Chief Complaint: Overdose Informant: [employer] Onset: Today Timing: Continuous Current Severity: Moderate Maximum Severity: Moderate Narrative: Patient presents via EMS for mental status changes. Apparently she was combative and belligerent and acting inappropriately. She admits to taking meth, she thinks there may have been something else. She was given 2 mg of Haldol and 2 mg of Versed in the ED. She has improved. She is somnolent, however she is lucid and coherent, tells us reasonable story, tells us that she is not feeling better, she knows her name her birthday and the sequence of events. She was shown to be delusional and possibly hallucinating prior to her arrival, however now she is just somnolent. Past Medical History - Allergies and Home Meds Allergies/Adverse Reactions: Allergies ketorolac [From Toradol] Allergy (Verified 12/26/18 07:39) Itching cephalexin monohydrate [From Keflex] Adverse Reaction (Verified 12/26/18 07:39) Vomiting cyclobenzaprine HCl [From Flexeril] Adverse Reaction (Verified 12/26/18 07:39) Pain in joints Penicillins Adverse Reaction (Verified 12/26/18 07:39) Unknown promethazine [From Phenergan] Adverse Reaction (Verified 12/26/18 07:39) Other tramadol Adverse Reaction (Verified 12/26/18 07:39) Vomiting Primary Care Physician: Care Physician,No Primary [Primary Care Provider] - 3-5 Days Past Medical History: - - Noncontributory Surgical History: no surgical history Smoking Status: Never smoker Drugs: - - As in HPI Review of Systems All systems negative except as indicated General: Denies: Fever Eyes: Denies: Visual changes - bilaterally Cardiovascular: Denies: Chest pain Respiratory: Denies: Dyspnea Gastrointestinal: Denies: Abdominal pain, Nausea, Vomiting Genitourinary: Denies: Dysuria Musculoskeletal: Denies: Myalgias Skin: Denies: Rash Neurological: Denies: Headache, Weakness Psych: Reports: - - As in HPI Physical Exam Vital Signs/Narrative: Vital Signs Temp Pulse Resp BP Pulse Ox 12/26/18 07:35 98.5 F 94 14 122/70 H 93 General: - - Patient does not appear in distress, she is somnolent but arousable. She does not appear toxic. Head: Normocephalic, Atraumatic Eyes: Perrl ENT: Moist mucous membranes Neck: Supple Cardiovascular: Regular rate, Regular rhythm, No murmurs Respiratory: No distress, CTA bilaterally Abdomen: Soft, Nontender Back: Nontender, Normal Inspection Extremities: Nontender, No edema Skin: Normal color Neurological: Oriented x3, Normal Strength, Normal Sensation Psychological: - - She is not agitated, she is lucid coherent Diagnostic/Tx/Re-eval - Medical Decision Making Patient had an unremarkable work-up, she observed in the emergency department she improved. She appears well I believe she is stable for discharge. I reevaluated her, she does not have any suicidal or homicidal ideations, she is no longer delusional or hallucinating. I encouraged her to stay off drugs. ED Disposition - Plan for ED Patient: Disposition: Home or Assisted Living Diagnosis: Drug abuse Instructions: Drug Abuse Referrals: Care Physician,No Primary [Primary Care Provider] - 3-5 Days
[2018-12-26] MEDS: 0.9% Normal Saline 1,000 ML 1000 ML IV (07:54)
[2018-12-26 08:00] VITALS: BP 105/59; PULSE 90; RESP 15; O2SAT 94
[2018-12-26 08:20] LABS: ALB/GLOB Ratio 1.1 RATIO (0.9-2.4); AST(SGOT) 18 U/L (15-37); Alanine Aminotransfer ALT/SGPT 17 U/L (13-56); Albumin, Serum 3.8 g/dL (3.2-5.0); Alkaline Phosphatase 71 U/L (45-117); Anion Gap 6 (5-15); BUN 9 mg/dL (7-18); BUN/Creat Ratio 10.9 RATIO (10-20); Calcium,Total 9.2 mg/dL (8.5-10.1); Chloride 107 mmol/L (98-107); Creatinine, Serum 0.82 mg/dL (0.55-1.02); EST Glomerular Filtration Rate 85 mL/min (>60); Est Glom Filt Rate - Afr Amer 102 mL/min (>60); Estimated Creatinine Clearance 80.72 ml/min; Globulin 3.5 g/dL (2.2-4.2); Glucose 128 mg/dL (74-106); Potassium 3.4 mmol/L (3.5-5.1); Protein, Total 7.3 g/dL (6.4-8.2); Sodium Level 139 mmol/L (136-145)
[2018-12-26 09:20] VITALS: BP 100/60; PULSE 60; RESP 15; O2SAT 100
[2018-12-26 10:48] VITALS: BP 100/62; PULSE 108; RESP 15
== END 2018-12-26 10:49 | disposition home or self-care (01) ==
PROVIDERS: Emergency Provider Emergency Medicine
DX: F15.10 Other stimulant abuse, uncomplicated (principal); Z79.899 Other long term (current) drug therapy
CPT/HCPCS: 80053; 96360; 96361; 99285; J7030

== ENCOUNTER 2019-01-10 14:41 | Emergency (ER) | payer MEDICAID, SELFPAY ==
[2019-01-10 14:41] VITALS: BP 144/73; PULSE 86; RESP 16; TEMP 36.9; O2SAT 100; BMI 22.8
--- NOTE | 2019-01-10 15:06 | ED.DCSUM_ITS ---
History of Present Illness Chief Complaint: Abd Pain Informant: Patient Onset: Today Context: Gradual Onset Timing: Intermittent Current Severity: Moderate Maximum Severity: Moderate Narrative: The patient presents to the emergency department with vague complaints. She states she just has not felt well today. She states she has had some mild nausea and some abdominal cramping. She is also concerned she may be . Patient does have a history of opiate abuse. She is on Suboxone. She also used methamphetamines almost daily. She denies any chest pain or shortness of breath. She denies any fevers or chills. She denies any suicidal or homicidal ideations. She states otherwise, she is been in her normal state of health. Prior similar symptoms: Yes Recent Illness/Hospitalization: Yes Past Medical History - Allergies and Home Meds Allergies/Adverse Reactions: Allergies ketorolac [From Toradol] Allergy (Verified 01/10/19 14:43) Itching cephalexin monohydrate [From Keflex] Adverse Reaction (Verified 01/10/19 14:43) Vomiting cyclobenzaprine HCl [From Flexeril] Adverse Reaction (Verified 01/10/19 14:43) Pain in joints Penicillins Adverse Reaction (Verified 01/10/19 14:43) Unknown promethazine [From Phenergan] Adverse Reaction (Verified 01/10/19 14:43) Other tramadol Adverse Reaction (Verified 01/10/19 14:43) Vomiting Primary Care Physician: Care Physician,No Primary [Primary Care Provider] - Prior records reviewed: Yes Surgical History: no surgical history Smoking Status: Former smoker Alcohol: Rare Drugs: Heroin, - - amphetamines Review of Systems General: Denies: Chills, Fever, Sweats Eyes: Denies: Visual changes - bilaterally, Diplopia ENT: Denies: Rhinorrhea, Sore throat Cardiovascular: Denies: Chest pain, Palpitations Respiratory: Denies: Dyspnea, Cough, Dyspnea on exertion Gastrointestinal: Reports: Abdominal pain, Nausea. Denies: Vomiting, Diarrhea, Melena, Hematochezia Genitourinary: Denies: Dysuria, Hematuria, Frequency Musculoskeletal: Reports: Myalgias. Denies: Back pain, Extremity Pain Skin: Denies: Rash, Wounds Neurological: Denies: Headache, Weakness, Numbness Psych: Denies: Depression Endocrine: Denies: Polyuria Hematologic: Denies: Easy bruising Allergy: Denies: Uticaria Physical Exam Vital Signs/Narrative: Vital Signs Temp Pulse Resp BP Pulse Ox 01/10/19 14:41 98.4 F 86 16 144/73 H 100 Inital Vital Signs reviewed: Yes General: Well nourished, Well developed, No Acute Distress Head: Normocephalic, Atraumatic Eyes: Perrl, EOMI ENT: Moist mucous membranes, No rhinorrhea Neck: Supple, Nontender Cardiovascular: Regular rate, Regular rhythm, No murmurs Respiratory: No distress, CTA bilaterally, Chest nontender Abdomen: Soft, Nontender, Nondistended, Normal bowel sounds Back: Nontender, Normal Inspection Extremities: Nontender, No edema Skin: Normal color, No rash Neurological: Alert, Oriented x3, Cranial nerves II-XII grossly intact, Normal Strength, Normal Sensation Psychological: Normal affect, Normal Mood Diagnostic/Tx/Re-eval Abnormal Lab Results 01/10/19 01/10/19 01/10/19 15:05 15:05 15:10 WBC 7.5 RBC 5.03 Hgb 14.1 Hct 42.8 MCV 85.1 MCH 28.0 MCHC 32.9 RDW Std Deviation 40.0 RDW Coeff of Qian 13.0 Plt Count 253 MPV 10.1 Immature Gran % (Auto) 0.400 Neut % (Auto) 72.5 H Lymph % (Auto) 17.4 L [place] % (Auto) 9.0 Eos % (Auto) 0.4 Baso % (Auto) 0.3 Absolute Neuts (auto) 5.4 Absolute Lymphs (auto) 1.30 Nucleated RBC % 0 Sodium Potassium Chloride Carbon Dioxide Anion Gap BUN Creatinine Estim Creat Clear Calc Est GFR (MDRD) Af Amer Est GFR (MDRD) Non-Af BUN/Creatinine Ratio Glucose Calcium Total Bilirubin AST ALT Alkaline Phosphatase Total Protein Albumin Globulin Albumin/Globulin Ratio Urine Color Yellow Urine Clarity Sl. Cloudy Urine pH 7.0 Ur Specific [place] 1.015 Urine Protein 15 H Urine Glucose (UA) Normal Urine Ketones 5 H Urine Occult Blood Negative Urine Nitrite Negative Urine Bilirubin Negative Urine Urobilinogen 1 H Ur Leukocyte Esterase 25 H Urine RBC 0 SEEN Urine WBC 0-5 SEEN Ur Squamous Epith Cells 0-5 SEEN Urine Bacteria RARE Urine Mucus 0 SEEN Urine Test Negative 01/10/19 15:10 WBC RBC Hgb Hct MCV MCH MCHC RDW Std Deviation RDW Coeff of Qian Plt Count MPV Immature Gran % (Auto) Neut % (Auto) Lymph % (Auto) [place] % (Auto) Eos % (Auto) Baso % (Auto) Absolute Neuts (auto) Absolute Lymphs (auto) Nucleated RBC % Sodium 142 Potassium 3.4 L Chloride 107 Carbon Dioxide 26.0 Anion Gap 9 BUN 16 Creatinine 0.81 Estim Creat Clear Calc 78.13 Est GFR (MDRD) Af Amer 104 Est GFR (MDRD) Non-Af 86 BUN/Creatinine Ratio 19.8 Glucose 83 Calcium 9.3 Total Bilirubin 0.60 AST 12 L ALT 19 Alkaline Phosphatase 70 Total Protein 7.5 Albumin 4.0 Globulin 3.5 Albumin/Globulin Ratio 1.1 Urine Color Urine Clarity Urine pH Ur Specific [place] Urine Protein Urine Glucose (UA) Urine Ketones Urine Occult Blood Urine Nitrite Urine Bilirubin Urine Urobilinogen Ur Leukocyte Esterase Urine RBC Urine WBC Ur Squamous Epith Cells Urine Bacteria Urine Mucus Urine Test - Medical Decision Making The patient presents with a vague constellation of symptoms. She states that she just felt weak and jittery. She does have long-standing history of drug abuse and did use methamphetamines today. She is not suicidal or homicidal. She is mildly hypokalemic and this was replaced. She is not . Reevaluation with fluids, she is feeling improved. At this point, I do feel that she is safe for outpatient follow-up. She is counseled to abstain from drug use. She will be given resources for follow-up. Impression 1. Methamphetamine abuse ED Disposition - Plan for ED Patient: Instructions: DEHYDRATION (6y-Adult) Referrals: Care Physician,No Primary [Primary Care Provider] -
[2019-01-10 15:12] LABS: Mucous, Urine 0 SEEN /hpf (<or=2+); Red Blood Cells-Urine 0 SEEN /hpf (0-5)
[2019-01-10] MEDS: 0.9% Normal Saline 1,000 ML 1000 ML IV (15:12)
[2019-01-10 15:15] LABS: Internal QC Validated? YES +Cl - CLEAR BKGD
[2019-01-10 15:16] LABS: Color, Urine Yellow (Yellow); Glucose, Dipstick Normal (Normal); Ketone-Dipstick 5 mg/dl (Negative); Leukocyte Esterase-Dipstick 25 /ul (Negative); Nitrite-Dipstick Negative (Negative); Occult Blood-Urine Negative /ul (Negative); Protein-Dipstick 15 mg/dl (Negative); Specific Gravity, Urine 1.015 (1.002-1.030); Urine Bilirubin Dipstick Negative (Negative); Urine Clarity Sl. Cloudy (Clear); Urine Urobilinogen 1 mg/dl (Normal)
[2019-01-10 15:19] LABS: Pregnancy, Urine Negative Negative
[2019-01-10 15:33] LABS: Absolute Neutrophil Count 5.4 X10^3/uL (2.0-7.7); Basophil# 0.02 X10^3/uL; Basophil% 0.3 % (0-1); Eosinophil# 0.03 X10^3/uL; Eosinophils% 0.4 % (0-5); Hematocrit 42.8 % (37-47); Hemoglobin 14.1 g/dL (12.0-15.0); Lymphocyte % 17.4 % (19-41); Mean Corp Hgb Conc 32.9 g/dL (32-36); Mean Corpuscular Volume 85.1 fL (81-99); Mean Platelet Vol. 10.1 fl (6.2-12.0); Monocyte# 0.67 X10^3/uL; NRBC Flagged by Analyzer 0 % (0-5); Neutrophil % 72.5 % (47-70); Platelet Count 253 K/mm3 (150-450); Red Blood Count 5.03 M/mm3 (4.2-5.4); White Blood Count 7.5 K/mm3 (4.4-11.0)
[2019-01-10 15:34] LABS: Bacteria RARE /hpf (None Seen); Squamous Epithelial Cells - UA 0-5 SEEN /hpf (5-10); White Blood Cells 0-5 SEEN /hpf (0-5)
[2019-01-10 15:50] LABS: ALB/GLOB Ratio 1.1 RATIO (0.9-2.4); AST(SGOT) 12 U/L (15-37); Alanine Aminotransfer ALT/SGPT 19 U/L (13-56); Alkaline Phosphatase 70 U/L (45-117); Anion Gap 9 (5-15); BUN 16 mg/dL (7-18); BUN/Creat Ratio 19.8 RATIO (10-20); Calcium,Total 9.3 mg/dL (8.5-10.1); Chloride 107 mmol/L (98-107); Creatinine, Serum 0.81 mg/dL (0.55-1.02); EST Glomerular Filtration Rate 86 mL/min (>60); Est Glom Filt Rate - Afr Amer 104 mL/min (>60); Estimated Creatinine Clearance 78.13 ml/min; Globulin 3.5 g/dL (2.2-4.2); Glucose 83 mg/dL (74-106); Potassium 3.4 mmol/L (3.5-5.1); Protein, Total 7.5 g/dL (6.4-8.2); Sodium Level 142 mmol/L (136-145)
[2019-01-10 16:09] VITALS: BP 138/80; PULSE 85; RESP 14; O2SAT 98
== END 2019-01-10 16:15 | disposition home or self-care (01) ==
LOC: ED 15:14
PROVIDERS: Emergency Provider Emergency Medicine
DX: F15.10 Other stimulant abuse, uncomplicated (principal); F11.10 Opioid abuse, uncomplicated; E87.6 Hypokalemia; Z88.1 Allergy status to other antibiotic agents; Z88.8 Allergy status to other drugs, medicaments and biological substances; Z88.0 Allergy status to penicillin; Z87.891 Personal history of nicotine dependence
CPT/HCPCS: 80053; 81001; 81025; 85025; 96360; 99284; J7030; A4216

== ENCOUNTER 2019-01-27 07:29 | Emergency (ER) | payer MEDICAID, SELFPAY ==
[2019-01-27 07:30] VITALS: BP 123/90; PULSE 99; RESP 16; TEMP 36.4; O2SAT 100; BMI 22.8
--- NOTE | 2019-01-27 07:49 | EKG12_ITS ---
Test Reason : CP/SOB Blood Pressure : / mmHG Vent. Rate : 094 BPM Atrial Rate : 094 BPM P-R Int : 114 ms QRS Dur : 082 ms QT Int : 346 ms P-R-T Axes : 059 019 045 degrees QTc Int : 432 ms Normal sinus rhythm Septal infarct (cited on or before 14-SEP-2018), age undetermined Abnormal ECG Confirmed by CHAIM QUINTANA ([id number]), market editor MARIBELL ACEVEDO ([id number]) on 01/28/2019 2:24:10 PM Referred By: HANY Confirmed By:CHAIM QUINTANA
--- NOTE | 2019-01-27 07:49 | CT_ITS ---
STUDY: CTA CHEST REASON FOR EXAM: Female, 34 years old. Chest pain. Possible dissection. RADIATION DOSAGE (If Supplied By Facility): CTDIvol = ( 12.02 ) mGy, DLP = ( 233.01 ) mGycm TECHNIQUE: The examination was performed with the intravenous administration of 100 IV Isovue 300. Post-processing of the angiographic images was performed, with multiplanar reformation and 3D reconstruction. Individualized dose optimization techniques were used for this CT. COMPARISON: None. FINDINGS: Normal enhancement of the main pulmonary artery and right and left pulmonary arteries. Normal enhancement of the bilateral peripheral pulmonary arteries. There is no demonstrated pulmonary embolism. Normal thoracic aorta and visualized great vessels. There is no demonstrated aortic dissection. Normal heart and pericardium. Normal mediastinum. Normal hilar regions. Normal visualized trachea and bronchi. The lungs are well expanded. Normal pulmonary parenchyma. Normal pleura. Normal chest wall structures. Normal osseous structures. Normal visualized upper abdomen. CT/CTA Chest W/WO Contrast IMPRESSION: Normal CTA chest examination, without a demonstrated pulmonary embolism or arterial dissection. Electronically Signed: Johnathan Adair, at 9:02 EDT , Service support ,
[2019-01-27 07:56] LABS: Absolute Lymphocyte Count 0.93 X10^3/uL (0.83-4.51); Absolute Neutrophil Count 4.1 X10^3/uL (2.0-7.7); Basophil# 0.03 X10^3/uL; Basophil% 0.5 % (0-1); Eosinophil# 0.07 X10^3/uL; Eosinophils% 1.2 % (0-5); Hematocrit 42.2 % (37-47); Hemoglobin 13.6 g/dL (12.0-15.0); Lymphocyte # 0.93 X10^3/ul (4.0); Lymphocyte % 16.5 % (19-41); Mean Corp Hgb Conc 32.2 g/dL (32-36); Mean Corpuscular Hgb 27.8 pg (27.0-32.0); Mean Corpuscular Volume 86.3 fL (81-99); Mean Platelet Vol. 9.9 fl (6.2-12.0); Monocyte# 0.45 X10^3/uL; NRBC Flagged by Analyzer 0 % (0-5); Neutrophil # 4.12 X10^3/uL (2.7-7.7); Neutrophil % 73.4 % (47-70); Platelet Count 238 K/mm3 (150-450); RBC Distribution Width CV 13.6 % (11.6-14.6); RBC Distribution Width SD 42.3 fl (35.1-43.9); Red Blood Count 4.89 M/mm3 (4.2-5.4); White Blood Count 5.6 K/mm3 (4.4-11.0)
[2019-01-27 08:01] VITALS: O2SAT 100
[2019-01-27 08:12] LABS: Anion Gap 7 (5-15); BUN 8 mg/dL (7-18); BUN/Creat Ratio 11.1 RATIO (10-20); Chloride 103 mmol/L (98-107); Creatinine, Serum 0.72 mg/dL (0.55-1.02); EST Glomerular Filtration Rate 98 mL/min (>60); Est Glom Filt Rate - Afr Amer 119 mL/min (>60); Estimated Creatinine Clearance 87.08 ml/min; Glucose 104 mg/dL (74-106); Potassium 4.1 mmol/L (3.5-5.1); Sodium Level 138 mmol/L (136-145)
--- NOTE | 2019-01-27 08:17 | ED.VISSUMM ---
- ER Visit Summary Date of Service: 01/27/19 Chief Complaint: Chest pain History of Present Illness: The patient is a 34 F with chest pain that started around 630 this morning. Pain is in her left chest and radiates down into her left arm. She feels a pulsing in her left arm. She also reports lightheadedness and she had some shortness of breath last night. This may have been triggered by the use of methamphetamines yesterday afternoon. She had not used in quite some time. She is in recovery and on Suboxone for opioid abuse as well. She does not use and has not used IV drugs. No history of aortic disease, heart disease, or PE. No fevers. Physical Examination: Afebrile and vital signs unremarkable. No sign of acute ischemia or infarction pattern. Heart regular rate and rhythm. Lungs clear. Abdomen soft and nontender. Extremity is nontender with no edema. Left upper extremity is unremarkable. Neurovascular intact. Skin appears normal. Test Results: EKG showed sinus rhythm at a rate of 94 with no signs of ischemia or infarction pattern. Laboratory studies pending. CTA pending. Emergency Department Course and Treatment: Patient presents with chest pain, shortness of breath, and arm pain after methamphetamine use. EKG was done and she was placed on a monitor. Treated with Ativan. Laboratory and imaging studies are pending. Blood work was all unremarkable. CT showed no evidence of PE or dissection. On reevaluation, patient is feeling better. Symptoms have improved. Vitals are normal. I believe the patient is appropriate for outpatient follow-up. No indication for further testing or admission. Patient has follow-up with her counselor later today. Treatment Plan: As above Disposition: Discharge Impression: 1. Atypical chest pain 2. Methamphetamine use This note was generated with [employer] software. It may contain incorrect words, spelling, and punctuation that were not noted in review of the chart prior to signing ED Disposition - Plan for ED Patient: Referrals: Care Physician,No Primary [Primary Care Provider] -
[2019-01-27] MEDS: LORazepam 2 MG/ML Syringe 1 MG IV (08:37)
--- NOTE | 2019-01-27 09:17 | ED.DEP ---
ED Disposition - Plan for ED Patient: Instructions: CHEST PAIN, Uncertain Cause (Child) Additional Instructions: follow up as scheduled later today
[2019-01-27 09:34] VITALS: BP 124/67; PULSE 84; RESP 16; O2SAT 98
== END 2019-01-27 09:36 | disposition home or self-care (01) ==
LOC: ED 08:16
PROVIDERS: Emergency Provider Emergency Medicine
DX: R07.89 Other chest pain (principal); R06.02 Shortness of breath; M79.602 Pain in left arm; F11.10 Opioid abuse, uncomplicated; Z87.891 Personal history of nicotine dependence
CPT/HCPCS: 71275; 80048; 84484; 85025; 93005; 96374; 99285; J7030; Q9967; A4216

== ENCOUNTER 2019-02-04 12:41 | Emergency (ER) | payer MEDICAID, SELFPAY ==
[2019-02-04 12:43] VITALS: BP 128/87; PULSE 82; RESP 16; TEMP 36.2; O2SAT 100; BMI 23.8
--- NOTE | 2019-02-04 12:44 | ED.RN ---
PT NOW REPORTS CHEST PRESSURE, RESPIRATORY AWARE.
--- NOTE | 2019-02-04 13:11 | CT_ITS ---
STUDY: CT BRAIN WITHOUT CONTRAST REASON FOR EXAM: Female, 34 years old. Altered mental status RADIATION DOSAGE (If Supplied By Facility): CTDIvol = ( 44.99 ) mGy, DLP = ( 745.49 ) mGycm TECHNIQUE: Transaxial CT imaging of the brain was performed without administration of intravenous contrast material. Individualized dose optimization techniques were used for this CT. COMPARISON: No relevant priors. FINDINGS: Normal soft tissue structures. Normal calvarium. Normal size ventricles and extra-axial spaces for the patient's age. Normal white matter tracts of the cerebral hemispheres. Normal basal ganglia and thalami. Normal brainstem. Normal cerebellum. There is no intracranial hemorrhage. There are no findings of an acute ischemic infarction. Normal visualized paranasal sinuses. CT/Brain/Head without Contrast IMPRESSION: Normal unenhanced CT scan of the brain. Electronically Signed: Rupinder Fernando, at 14:06 EDT Tel , Service support ,
--- NOTE | 2019-02-04 13:11 | EKG12_ITS ---
Test Reason : CP Blood Pressure : / mmHG Vent. Rate : 072 BPM Atrial Rate : 072 BPM P-R Int : 122 ms QRS Dur : 082 ms QT Int : 372 ms P-R-T Axes : 059 008 044 degrees QTc Int : 407 ms Normal sinus rhythm Septal infarct (cited on or before 14-SEP-2018), age undetermined Abnormal ECG Confirmed by ANTHONY ESPARZA, PERLA ([id number]), acquisitions editor MARIBELL ACEVEDO ([id number]) on 02/08/2019 11:25:02 A M Referred By: Rosalinda Berkowitz Confirmed By:ANNETTE CRUZ MD
--- NOTE | 2019-02-04 13:11 | RAD_ITS ---
STUDY: X-RAY CHEST REASON FOR EXAM: Female, 34 years old. Chest pain TECHNIQUE: PA and lateral views of the chest. COMPARISON: 03/08/2016 FINDINGS: The lungs are clear and expanded. There is no demonstrated pleural abnormality. Normal size heart. Normal mediastinum and amanda. Normal visualized pulmonary arteries. Normal visualized aortic arch and descending thoracic aorta. Normal visualized thoracic spine. Normal visualized ribs, clavicles, and shoulders. There is no demonstrated abnormality of the visualized soft tissue structures of the upper abdomen. RAD/Chest PA and Lateral IMPRESSION: Normal x-ray examination of the chest. Electronically Signed: Rupinder Fernando, at 14:15 EDT Tel , Service support ,
[2019-02-04 13:26] LABS: Bacteria 0 SEEN /hpf (None Seen); Mucous, Urine 0 SEEN /hpf (<or=2+); Red Blood Cells-Urine 0 SEEN /hpf (0-5); White Blood Cells 0 SEEN /hpf (0-5)
[2019-02-04 13:27] LABS: Color, Urine Yellow (Yellow); Glucose, Dipstick Normal (Normal); Ketone-Dipstick Negative (Negative); Leukocyte Esterase-Dipstick Negative /ul (Negative); Nitrite-Dipstick Negative (Negative); Occult Blood-Urine Negative /ul (Negative); Protein-Dipstick Negative (Negative); Urine Bilirubin Dipstick Negative (Negative); Urine Clarity Clear (Clear); Urine Urobilinogen Normal (Normal)
[2019-02-04 13:35] LABS: Squamous Epithelial Cells - UA 0-5 SEEN /hpf (5-10)
[2019-02-04 13:40] LABS: Amphetamine Urine VISTA NEGATIVE (<1000 ng/mL); Barbiturate Urine VISTA NEGATIVE (< 200 ng/mL); Benzodiazepine Urine VISTA NEGATIVE (< 200 ng/mL); Cocaine Urine VISTA NEGATIVE (< 300 ng/mL); Ecstacy Urine VISTA NEGATIVE (< 500 ng/mL); Methadone Urine VISTA NEGATIVE (< 300 ng/mL); PCP Urine VISTA NEGATIVE (< 25 ng/mL); THC Urine VISTA NEGATIVE (< 50 ng/mL); Vista UDS pH Range 6
[2019-02-04 13:41] LABS: Absolute Lymphocyte Count 0.79 X10^3/uL (0.83-4.51); Absolute Neutrophil Count 4.6 X10^3/uL (2.0-7.7); Basophil# 0.02 X10^3/uL; Basophil% 0.3 % (0-1); Eosinophil# 0.02 X10^3/uL; Eosinophils% 0.3 % (0-5); Hematocrit 41.1 % (37-47); Hemoglobin 13.1 g/dL (12.0-15.0); Lymphocyte # 0.79 X10^3/ul (4.0); Lymphocyte % 13.4 % (19-41); Mean Corp Hgb Conc 31.9 g/dL (32-36); Mean Corpuscular Hgb 27.6 pg (27.0-32.0); Mean Corpuscular Volume 86.5 fL (81-99); Mean Platelet Vol. 10.1 fl (6.2-12.0); Monocyte% 8.5 % (0-10); NRBC Flagged by Analyzer 0 % (0-5); Neutrophil # 4.56 X10^3/uL (2.7-7.7); Neutrophil % 77.2 % (47-70); Platelet Count 248 K/mm3 (150-450); RBC Distribution Width CV 13.5 % (11.6-14.6); RBC Distribution Width SD 42.6 fl (35.1-43.9); Red Blood Count 4.75 M/mm3 (4.2-5.4); White Blood Count 5.9 K/mm3 (4.4-11.0)
[2019-02-04 13:58] LABS: AST(SGOT) 10 U/L (15-37); Alanine Aminotransfer ALT/SGPT 21 U/L (13-56); Albumin, Serum 3.8 g/dL (3.2-5.0); Alkaline Phosphatase 73 U/L (45-117); Anion Gap 4 (5-15); BUN 14 mg/dL (7-18); BUN/Creat Ratio 21.1 RATIO (10-20); Chloride 107 mmol/L (98-107); Creatinine, Serum 0.66 mg/dL (0.55-1.02); EST Glomerular Filtration Rate 108 mL/min (>60); Est Glom Filt Rate - Afr Amer 131 mL/min (>60); Estimated Creatinine Clearance 94.99 ml/min; Glucose 88 mg/dL (74-106); Potassium 3.9 mmol/L (3.5-5.1); Protein, Total 7.8 g/dL (6.4-8.2); Sodium Level 139 mmol/L (136-145)
[2019-02-04 14:04] LABS: Internal QC Validated? YES +Cl - CLEAR BKGD; Pregnancy, Serum, hCG Quali. NEGATIVE Negative
--- NOTE | 2019-02-04 14:05 | ED.DCSUM_ITS ---
- ER Visit Summary Date of Service: 02/04/19 Chief Complaint: Chest pain and abnormal behavior History of Present Illness: The patient is a 34 F who presents with chest pain that began approxi-2 hours prior to arrival. Patient states the pain is over the left upper chest. Patient describes the pain as stabbing. Patient states the pain is been constant. Patient states nothing makes it better or worse. Patient denies any cardiac risk factors. Patient denies any shortness of breath. Patient admits to some nausea but denies any vomiting. Patient admits to subjective chills. Family states that the patient has been acting bizarre today. Family states the patient has a history of drug abuse. Patient states she has not had any illicit drugs for 3 days. Physical Examination: Vital signs are stable. Patient is afebrile. Patient is in no acute distress. Cranial nerves II through XII are grossly intact. There are no focal motor or sensory deficits noted. Patient is ambulating in the room without difficulty. Patient appears to be alert and oriented x3. Heart was re gular rate and rhythm. Lungs are clear and equal bilaterally. Abdomen is soft nontender. There is reproducible tenderness over the left upper chest wall. Oral mucosa is pink and moist. Neck is supple. Trachea is midline. No JVD noted. Test Results: EKG showed normal sinus rhythm with a rate of 72. There are no acute ST or T wave changes noted. CBC, comprehensive metabolic profile, troponin, serum alcohol level, and urine tox screen were obtained and were negative. Emergency Department Course and Treatment: Patient is feeling better on reevaluation. Social work was in to evaluate the patient. Patient is not suicidal homicidal does not require admission to psychiatric unit. break off worker advised the patient that she would benefit from inpatient detox treatment however the patient wants to go home. Patient will stay with her family. Patient will follow-up with her outpatient rehabilitation facility. Patient un derstood and was agreeable with the plan. All questions were answered. Disposition: Discharge home Impression: 1. Chest pain 2. Abnormal behavior This note was generated with [employer] software. It may contain incorrect words, spelling, and punctuation that were not noted in review of the chart prior to signing ED Disposition - Plan for ED Patient: Disposition: Home or Assisted Living Diagnosis: Chest pain, Episode of abnormal behavior Instructions: CHEST PAIN, NonCardiac Referrals: Care Physician,No Primary [Primary Care Provider] - Additional Instructions: Follow-up with your outpatient rehabilitation facility. Return to the emergency department if worse in any way.
[2019-02-04 15:00] VITALS: BP 115/62; PULSE 68; RESP 15; O2SAT 97
--- NOTE | 2019-02-04 16:03 | ED.RN ---
PT HAD BEEN CRYING AND PACING IN ROOM ASKING WHERE PARENTS ARE WAITING ON DC. JIN SW IN TO SEE D/T PARENTS REPORT OF BIZARRE BEHAVIORS .
--- NOTE | 2019-02-04 16:05 | CM.ED ---
SOCIAL WORK INFORMANT: DR. DOMINGUEZ REASON FOR REFERRAL: MENTAL HEALTH/SUBSTANCE ABUSE UPDATED BY DR. DOMINGUEZ, PATIENT'S PARENTS REPORTED PATIENT HAVING BIZARRE BEHAVIOR. PATIENT HAS BEEN TAKING SUBOXONE AND HAS NOT HAD ANY SUBSTANCES IN SEVERAL DAYS. MET WITH PATIENT IN ROOM. PATIENT SITTING AT EDGE OF BED, TEARFUL. PATIENT REPORTS MY PARENTS LEFT AND I DON'T KNOW IF THEY ARE COMING BACK. I DON'T HAVE A PHONE TO CALL THEM. THIS WORKER OFFERED TO CALL PARENTS TO DISCUSS D/C. PATIENT STATES SHE LIVES HOME WITH HER PARENTS. WHEN ASKED WHAT BROUGHT PATIENT TO THE HOSPITAL TODAY PATIENT STATES I DIDN'T REALLY NEED TO COME. DISCUSSED PATIENT'S MENTAL HEALTH AND SUBSTANCE ABUSE HX. PATIENT CONTINUED TO APOLOGIZE FOR CRYING. PATIENT ADMITS TO HX OF DEPRESSION AND STATES HAS BEEN ON SUBOXONE. PATIENT REPORTS HAS NOT USED ANY SUBSTANCES IN SEVERAL DAYS. PATIENT STATED WHILE CRYING IF THEY WANT ME TO GET HELP I WILL. DISCUSSED OPTIONS FOR INPATIENT TREATMENT. PATIENT WANTING HER FAMILY. THIS WORKER TO CALL FAMILY AT THIS TIME. CALL TO PATIENT'S PARENT'S. NO ANSWER, LEFT MESSAGE REQUESTING CALL BACK TO DISCUSS SAFE D/C PLAN. PLAN: TBD
--- NOTE | 2019-02-04 16:25 | CM.ED ---
SOCIAL WORK RECEIVED CALL BACK FROM PATIENT'S MOTHER, GASTON ([phone]). GASTON REPORTS CONCERNS FOR PATIENT DUE TO BEHAVIORS. GASTON STATES WILL BE BACK IN TO TRANSPORT PATIENT HOME. INFORMED MOTHER THIS WORKER WILL FOLLOW UP ONCE FAMILY IN DEPT TO DISCUSS FURTHER OPTIONS FOR TREATMENT. UPDATED PATIENT THAT THIS WORKER SPOKE WITH MOTHER AND SHE IS ON HER WAY BACK TO THE HOSPITAL. PATIENT NO LONGER CRYING AND CALM AT THIS TIME. PATIENT REPORTS, I JUST NEED TO PRAY. I DON'T WANT TO LIVE THE DRUG LIFE ANYMORE. EMOTIONAL SUPPORT PROVIDED. JIN MONZON , GLASS BULB MACHINE ADJUSTER, FLAP CURER.
--- NOTE | 2019-02-04 16:50 | CM.ED ---
SOCIAL WORK UPDATED BY NURSENIALL, PATIENT'S PARENTS IN ROOM. MET WITH PATIENT AND FAMILY AT BEDSIDE. PER PATIENT, IS WORKING WITH [facility] FOR [facility]PATIENT [facility]. DISCUSSED INPATIENT TREATMENT. PATIENT NOT OPEN TO INPATIENT AT THIS TIME. PLANS TO RETURN HOME WITH FAMILY AND CALL [facility] IN THE MORNING. EXPLAINED [facility] DOES HAVE RESIDENTIAL PROGRAM AND EDUCATION PROVIDED ON OTHER INPATIENT AND OUTPATIENT TREATMENT OPTIONS. PROVIDED PATIENT AND FAMILY WITH THIS WORKER'S CONTACT INFORMATION FOR ANY FURTHER RESOURCES. UPDATED DR. DOMINGUEZ AND PATIENT'S NURSE ON PLAN FOR D/C HOME WITH PARENTS AND PATIENT TO F/U WITH [facility] TOMORROW MORNING. JIN MONZON, IRON GUARDRAIL INSTALLER, FREIGHT TEAM ASSOCIATE.
--- NOTE | 2019-02-04 17:05 | ED.RN ---
SW AND FAMILY UNABLE TO TALK PT INTO GOING TO [facility] AT THIS TIME FOR FURTHER HELP.
== END 2019-02-04 17:06 | disposition home or self-care (01) ==
PROVIDERS: Emergency Provider Emergency Medicine
DX: R07.9 Chest pain, unspecified (principal); R46.89 Other symptoms and signs involving appearance and behavior; M54.2 Cervicalgia; R11.0 Nausea; F19.11 Other psychoactive substance abuse, in remission; Z87.891 Personal history of nicotine dependence
CPT/HCPCS: 70450; 71046; 80053; 80307; 80320; 81001; 84484; 84703; 85025; 93005; 99284; A4216; G0480

== ENCOUNTER 2019-02-05 18:33 | Inpatient (IN) | payer MEDICAID, SELFPAY ==
[2019-02-04 12:43] VITALS: BMI 23.8
[2019-02-05 18:35] VITALS: BP 155/88; PULSE 92; RESP 17; TEMP 36.5; O2SAT 99; BMI 23.1
--- NOTE | 2019-02-05 19:05 | CM.ED ---
SOCIAL WORK INFORMANT: NURSING REASON FOR REFERRAL: MENTAL HEALTH/DETOX MET WITH PATIENT AND RELATIVE, SYDNIE IN ROOM. GIVEN PERMISSION TO SPEAK OPENLY WITH RELATIVE IN ROOM. PATIENT KNOWN TO THIS WORKER FROM ED VISIT ON 02/04/19. PATIENT HAD PLAN TO FOLLOW UP WITH [facility] (WHICH IS WHERE SHE IS CURRENTLY RECEIVING TREATMENT) THIS DAY. PATIENT REPORTS DID NOT FOLLOW UP D/T TRANSPORTATION ISSUES. PATIENT REPORTS IS WANTING DETOX. PATIENT STATES HAS BEEN HEARING VOICES. RELATIVE STATES HAS HAD PATIENT WITH HER MOST OF THE DAY AND SHE HAS BEEN PARANOID AND BEHAVING BIZARRE. DISCUSSED CASE WITH DR. HORTON. DR. HORTON TO ASSESS PATIENT. PLAN: TBD
[2019-02-05] MEDS: 0.9% Normal Saline 1,000 ML 1000 ML IV (19:37)
[2019-02-05 19:56] LABS: Absolute Lymphocyte Count 0.78 X10^3/uL (0.83-4.51); Absolute Neutrophil Count 7.5 X10^3/uL (2.0-7.7); Basophil# 0.01 X10^3/uL; Basophil% 0.1 % (0-1); Eosinophil# 0.01 X10^3/uL; Eosinophils% 0.1 % (0-5); Hematocrit 44.2 % (37-47); Hemoglobin 14.1 g/dL (12.0-15.0); Lymphocyte # 0.78 X10^3/ul (4.0); Lymphocyte % 8.8 % (19-41); Mean Corp Hgb Conc 31.9 g/dL (32-36); Mean Corpuscular Hgb 27.5 pg (27.0-32.0); Mean Corpuscular Volume 86.3 fL (81-99); Mean Platelet Vol. 10.1 fl (6.2-12.0); Monocyte# 0.54 X10^3/uL; Monocyte% 6.1 % (0-10); NRBC Flagged by Analyzer 0 % (0-5); Neutrophil # 7.53 X10^3/uL (2.7-7.7); Neutrophil % 84.7 % (47-70); Platelet Count 283 K/mm3 (150-450); RBC Distribution Width CV 13.6 % (11.6-14.6); RBC Distribution Width SD 42.9 fl (35.1-43.9); Red Blood Count 5.12 M/mm3 (4.2-5.4); White Blood Count 8.9 K/mm3 (4.4-11.0)
[2019-02-05 20:09] LABS: Internal QC Validated? YES +Cl - CLEAR BKGD; Pregnancy, Serum, hCG Quali. NEGATIVE Negative
[2019-02-05 20:12] LABS: AST(SGOT) 12 U/L (15-37); Alanine Aminotransfer ALT/SGPT 22 U/L (13-56); Albumin, Serum 4.2 g/dL (3.2-5.0); Alkaline Phosphatase 79 U/L (45-117); Anion Gap 6 (5-15); BUN 13 mg/dL (7-18); Chloride 107 mmol/L (98-107); Creatinine, Serum 0.76 mg/dL (0.55-1.02); EST Glomerular Filtration Rate 92 mL/min (>60); Est Glom Filt Rate - Afr Amer 111 mL/min (>60); Estimated Creatinine Clearance 82.49 ml/min; Globulin 4.2 g/dL (2.2-4.2); Glucose 114 mg/dL (74-106); Potassium 3.7 mmol/L (3.5-5.1); Protein, Total 8.4 g/dL (6.4-8.2); Sodium Level 139 mmol/L (136-145)
[2019-02-05 20:15] LABS: Amphetamine Urine VISTA NEGATIVE (<1000 ng/mL); Barbiturate Urine VISTA NEGATIVE (< 200 ng/mL); Benzodiazepine Urine VISTA NEGATIVE (< 200 ng/mL); Cocaine Urine VISTA NEGATIVE (< 300 ng/mL); Ecstacy Urine VISTA NEGATIVE (< 500 ng/mL); Methadone Urine VISTA NEGATIVE (< 300 ng/mL); PCP Urine VISTA NEGATIVE (< 25 ng/mL); THC Urine VISTA NEGATIVE (< 50 ng/mL)
[2019-02-05 20:16] LABS: Vista UDS pH Range 6
--- NOTE | 2019-02-05 20:17 | CM.ED ---
SOCIAL WORK UPDATED BY DR. HORTON PATIENT DOES REQUIRE INPATIENT PSYCH PLACEMENT. PLAN TO DISCUSS WITH HOSPITALIST FOR DETOX. JIN MONZON, MANAGER COMMODITIES, CAMP RECREATION SPECIALIST.
--- NOTE | 2019-02-05 20:25 | NURSING ---
PT DISPLAYING PARANOIA BEHAVIORS AND INTERMITTENT CRYING/SCREAMING OUT. MULTIPLE ATTEMPTS TO REASSURE AND CALM PATIENT MADE BY STAFF.
[2019-02-05 20:27] VITALS: BP 148/84; PULSE 97; RESP 19; O2SAT 97
[2019-02-05 20:33] VITALS: BMI 23.1
--- NOTE | 2019-02-05 20:34 | HP.PCM_ITS ---
Problem List (1) History of influenza Status: Chronic (2) Polysubstance (including opioids) dependence w/o physiol dependence Status: Chronic (3) Acute metabolic encephalopathy Status: Acute History of Present Illness Date of Admission: 02/05/19 Chief Complaint: Hallucinations, abnormal behavior - 2 days The patient is a 34 year old F with past medical history of polysubstance use, reportedly on Suboxone who was said to have run out of Suboxone 3 days ago. She had been unable to go get a refill of her Suboxone because she could not get a ride. She was brought to the emergency department yesterday with abnormal behavior. She has voiced that she did not want to be on a Suboxone anymore. She was recommended by social work for patient to to be admitted for inpatient medical stabilization and detox. Patient refused and wanted to go home. She was brought in today because she was acting abnormal with hallucinations. She did not had said she felt like she was dying. She did not have suicidal or homicidal ideation. When asked further she said she feels with her [id number] sensation that something is wrong that she is going to . Denied any chest pain or dizziness or palpitations. Denied any nausea or vomiting or diarrhea. Denied any fever or chills. Vitals in the ED showed temperature 97.7 F, heart rate 92, blood pressure 155/88, respiratory 70, SPO2 is 99% on room air. Blood work showed a BC count of 8.9, hemoglobin 14.1, platelet 283, BMP was unremarkable. Urine tox was negative, serum alcohol level was 8.0. Past Medical History Past Medical History (Chronic Problems): Chronic Problems Polysubstance (including opioids) dependence w/o physiol dependence (Chronic) History of influenza (Chronic) Allergies ketorolac [From Toradol] Allergy (Verified 02/05/19 19:44) Itching cephalexin monohydrate [From Keflex] Adverse Reaction (Verified 02/05/19 19:44) Vomiting cyclobenzaprine HCl [From Flexeril] Adverse Reaction (Verified 02/05/19 19:44) Pain in joints Penicillins Adverse Reaction (Verified 02/05/19 19:44) Unknown promethazine [From Phenergan] Adverse Reaction (Verified 02/05/19 19:44) Other tramadol Adverse Reaction (Verified 02/05/19 19:44) Vomiting Home Medications: Ambulatory Orders Medication Instructions Recorded Buprenorphine HCl/Naloxone HCl 1 each PO BID 11/26/18 [Suboxone 8 mg-2 mg Sl Film] Surgical History: no surgical history Psychiatric History: No pertinent psych hx 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 Lives: With Family Smoking Status: Never smoker Tobacco Use: Non-smoker Alcohol: None Drugs: None - *Family History Maternal History Items: No pertinent history Paternal History Items: No pertinent history Review of Systems Unable to obtain accurate/complete ROS d/t: Patient is groggy, confused, hallucinating VTE Information - Inpt Only VTE Present on Admission: No VTE Pharm Prophylaxis ordered?: Yes Patient Problems: Active and Suspected Problems Acute metabolic encephalopathy (Acute) - Physical Exam General: Alert, Cooperative, No apparent distress, Confused, Disoriented, Lethargic HEENT: Atraumatic, PERRLA, EOMI, Normocephalic Oral: Moist Mucosa Neck: Supple Lungs: Clear to auscultation, Normal air movement Cardiovascular: Regular rate, Regular Rhythm, Normal S1, Normal S2, No murmurs Abdomen: Bowel Sounds Present, Soft, Non Tender, Non-Distended, No Hepato- splenomegaly Extremities: No edema Skin: No rashes, No breakdown Musculoskeletal: No Tenderness to Palpation of Joints or Extremities Lymphatic: No Cervical, Supraclavicular, or Inguinal Adenopathy Neurological: Cranial nerves II-XII grossly intact, Neuro grossly intact Psych/Mental Status: Normal Affect, Appropriate Vital Signs Temp Pulse Resp BP Pulse Ox 97.7 F L 97 19 H 148/84 H 97 02/05/19 18:35 02/05/19 20:27 02/05/19 20:27 02/05/19 20:27 02/05/19 20:27 Oxygen Delivery Method Room Air Weight: 57.2 kg Body Mass Index (BMI) 23.1 Finger Stick Blood Glucose 115 Laboratory Tests Past 24 Hrs 02/05/19 02/05/19 02/05/19 19:30 19:30 19:30 WBC 8.9 RBC 5.12 Hgb 14.1 Hct 44.2 MCV 86.3 MCH 27.5 MCHC 31.9 L RDW Std Deviation 42.9 RDW Coeff of Qian 13.6 Plt Count 283 MPV 10.1 Immature Gran % (Auto) 0.200 Neut % (Auto) 84.7 H Lymph % (Auto) 8.8 L Meeker % (Auto) 6.1 Eos % (Auto) 0.1 Baso % (Auto) 0.1 Absolute Neuts (auto) 7.5 Absolute Lymphs (auto) 0.78 L Nucleated RBC % 0 Sodium 139 Potassium 3.7 Chloride 107 Carbon Dioxide 26.0 Anion Gap 6 BUN 13 Creatinine 0.76 Estim Creat Clear Calc 82.49 Est GFR (MDRD) Af Amer 111 Est GFR (MDRD) Non-Af 92 BUN/Creatinine Ratio 17.0 Glucose 114 H Calcium 9.0 Total Bilirubin 0.50 AST 12 L ALT 22 Alkaline Phosphatase 79 Total Protein 8.4 H Albumin 4.2 Globulin 4.2 Albumin/Globulin Ratio 1.0 Serum , Qual Urine Opiates Screen Urine Methadone Screen Ur Barbiturates Screen Ur Phencyclidine Scrn Ur Amphetamines Screen U Methamphetamin-MDMA U Benzodiazepines Scrn Urine Cocaine Screen U Cannabinoids Screen Ur Drug Screen Comment Ethyl Alcohol 8.0 02/05/19 02/05/19 19:30 19:30 WBC RBC Hgb Hct MCV MCH MCHC RDW Std Deviation RDW Coeff of Qian Plt Count MPV Immature Gran % (Auto) Neut % (Auto) Lymph % (Auto) Meeker % (Auto) Eos % (Auto) Baso % (Auto) Absolute Neuts (auto) Absolute Lymphs (auto) Nucleated RBC % Sodium Potassium Chloride Carbon Dioxide Anion Gap BUN Creatinine Estim Creat Clear Calc Est GFR (MDRD) Af Amer Est GFR (MDRD) Non-Af BUN/Creatinine Ratio Glucose Calcium Total Bilirubin AST ALT Alkaline Phosphatase Total Protein Albumin Globulin Albumin/Globulin Ratio Serum , Qual NEGATIVE Urine Opiates Screen NEGATIVE Urine Methadone Screen NEGATIVE Ur Barbiturates Screen NEGATIVE Ur Phencyclidine Scrn NEGATIVE Ur Amphetamines Screen NEGATIVE U Methamphetamin-MDMA NEGATIVE U Benzodiazepines Scrn NEGATIVE Urine Cocaine Screen NEGATIVE U Cannabinoids Screen NEGATIVE Ur Drug Screen Comment Ethyl Alcohol Assessment/Plan All Active Problems Acute metabolic encephalopathy (Acute) 34 year old F with past medical history of polysubstance use, reportedly on Suboxone who was said to have run out of Suboxone 3 days ago who comes in with abnormal behavior and hallucinating ongoing for 2 days 1. Acute metabolic encephalopathy likely secondary to acute opiate withdrawal, admitting CINA score is 6 Patient is actively hallucinating; Denies any suicidal homicidal ideation Plan: Admit to MedSurg, opioid withdrawal protocol with Suboxone taper, continue to monitor vitals closely Social work consult for post discharge placement 2. Polysubstance use disorder, reportedly on Suboxone 3. DVT PPx- SCDs Code Visit Inpatient E&M: 26718 Init Hosp L2
--- NOTE | 2019-02-05 20:34 | ED.VISSUMM ---
- ER Visit Summary Date of Service: 02/05/19 Chief Complaint: Opiate withdrawal History of Present Illness: The patient is a 34 F who goes to [facility]. She reports that she has been on Suboxone for 3 months. States that she ran out of this 3 days ago. She has not gone back to do [facility] to get a refill. She reports that she does not want to be on Suboxone anymore. Patient reports that she is having auditory hallucinations. She reports she is hearing voices that are saying negative things. She denies any suicidal ideation. She complains of subjective fever and chills. She has had nausea. No vomiting. Physical Examination: Vitals: Stable. Afebrile. General: Well-nourished and well-developed. Head: Normocephalic atraumatic. Neck: Supple, no lymphadenopathy. No JVD. Nontender. Cardiovascular: Regular rate and rhythm. No murmurs. Respiratory: No respiratory distress. Clear to auscultation bilaterally. Abdominal: Soft, nontender, nondistended, normal bowel sounds. No guarding, rebound, or peritoneal signs. Back: Nontender. Extremities: Nontender, no edema. Skin: Normal color, no rash. Neurologic: Alert and oriented ?3. Cranial nerves II through XII are intact. Normal strength and sensation. Psych: Normal affect. Test Results: CBC shows segmented neutrophils 85 monocytes of 9. Chem-7 shows a glucose 114. LFTs show total protein of 8.4. test is negative. Tox screen is negative. Alcohol level 0. Emergency Department Course and Treatment: Patient has rested comfortably while here. She has a CINA score of 6. Treatment Plan: The patient was discussed with Dr. Berkowitz. She will be admitted to the hospital for further evaluation and treatment. Disposition: Admitted in stable condition. Impression: 1. Opiate withdrawal. This note was generated with [employer] dictation software. It may contain incorrect words, spelling, and punctuation that were not noted in review of the chart prior to signing ED Disposition - Plan for ED Patient: Referrals: Care Physician,No Primary [Primary Care Provider] -
--- NOTE | 2019-02-05 20:35 | NURSING ---
PT REQUESTED LAC PIV TO BE REMOVED; NEW PIV STARTED IN LFA
[2019-02-05 21:36] VITALS: BP 134/74; PULSE 81; RESP 20; O2SAT 98; BMI 23.1
[2019-02-05 22:35] VITALS: BP 140/64; PULSE 83; RESP 16; TEMP 36.6; O2SAT 98
[2019-02-05] MEDS: Dicyclomine 10 MG Capsule 20 MG PO (23:09)
[2019-02-05] MEDS: traZODone 50 MG Tablet PO (23:09)
[2019-02-05] MEDS: Buprenorphine HCl 2 MG TAB.SUBL 4 MG SL (23:14)
[2019-02-06 03:23] VITALS: BP 119/61; PULSE 103; RESP 16; TEMP 36.7; O2SAT 97
[2019-02-06] MEDS: hydrOXYzine PAM 25 MG Capsule 50 MG PO ×3 (03:34→18:33)
[2019-02-06] MEDS: 0.9% NaCl Peripheral Flush Adult/Peds IV ×2 (03:34→18:35)
[2019-02-06] MEDS: Pramipexole Di-HCl 0.25 MG Tablet PO (03:34)
[2019-02-06] MEDS: Buprenorphine HCl 2 MG TAB.SUBL 4 MG SL (06:08)
--- NOTE | 2019-02-06 09:30 | PN_ITS ---
Patient Problems: Active and Suspected Problems Acute metabolic encephalopathy (Acute) Subjective: Having hallucinations where she is hearing people have a conversation. Tells me, that she stopped taking Suboxone on the because of hallucinations. I reviewed the OARRS in her room and shows that she had received 28 doses of b uprenorphine/naloxone on January 25 and that would be a 2-week supply which should take her through the . Patient stated that she had run out but when I told her that she should have more doses, she is stated that she flushed the toilet. Vitals/I&O's: Vital Signs Temp Pulse Resp BP Pulse Ox 36.7 C 103 H 16 119/61 97 02/06/19 03:23 02/06/19 03:23 02/06/19 03:23 02/06/19 03:23 02/06/19 03:23 Oxygen Delivery Method Room Air Weight: 57.2 kg Body Mass Index (BMI) 23.1 Finger Stick Blood Glucose 115 Intake and Output for Last 24 Hours 02/04/19 02/05/19 02/06/19 23:59 23:59 23:59 Intake Total 1000 / 1000 340 / 340 Balance 1000 / 1000 340 / 340 General: Alert, No apparent distress HEENT: Atraumatic, Normocephalic Oral: Moist Mucosa, No Gingival or Mucosal Lesions/ Ulcerations Neck: No Nodes, Thyroid Normal Size and Texture Lungs: Clear to auscultation, Normal air movement, No rhonchi, No wheeze, No rales Cardiovascular: Regular rate, Regular Rhythm, Normal S1, Normal S2 Abdomen: Bowel Sounds Present, Soft, Non Tender, Non-Distended Extremities: No edema, No Calf Tenderness Skin: No rashes, No breakdown Musculoskeletal: No Tenderness to Palpation of Joints or Extremities, No Muscle Wasting, Arthritic Changes Psych/Mental Status: Normal Affect, Appropriate Laboratory Results 02/05/19 19:30: WBC 8.9, RBC 5.12, Hgb 14.1, Hct 44.2, MCV 86.3, MCH 27.5, MCHC 31.9 L, RDW Std Deviation 42.9, RDW Coeff of Qian 13.6, Plt Count 283, MPV 10.1, Immature Gran % (Auto) 0.200, Neut % (Auto) 84.7 H, Lymph % (Auto) 8.8 L, [place] % (Auto) 6.1, Eos % (Auto) 0.1, Baso % (Auto) 0.1, Absolute Neuts (auto) 7.5, Absolute Lymphs (auto) 0.78 L, Nucleated RBC % 0 02/05/19 19:30: Sodium 139, Potassium 3.7, Chloride 107, Carbon Dioxide 26.0, Anion Gap 6, BUN 13, Creatinine 0.76, Estim Creat Clear Calc 82.49, Est GFR (MDRD) Af Amer 111, Est GFR (MDRD) Non-Af 92, BUN/Creatinine Ratio 17.0, Glucose 114 H, Calcium 9.0, Total Bilirubin 0.50, AST 12 L, ALT 22, Alkaline Phosphatase 79, Total Protein 8.4 H, Albumin 4.2, Globulin 4.2, Albumin/Globulin Ratio 1.0 02/05/19 19:30: Ethyl Alcohol 8.0 02/05/19 19:30: Serum , Qual NEGATIVE 02/05/19 19:30: Urine Opiates Screen NEGATIVE, Urine Methadone Screen NEGATIVE, Ur Barbiturates Screen NEGATIVE, Ur Phencyclidine Scrn NEGATIVE, Ur Amphetamines Screen NEGATIVE, U Methamphetamin-MDMA NEGATIVE, U Benzodiazepines Scrn NEGATIVE, Urine Cocaine Screen NEGATIVE, U Cannabinoids Screen NEGATIVE, Ur Drug Screen Comment Current Medications Acetaminophen (Tylenol) 500 mg PO Q4H PRN PRN PRN Reason: Temp > 100.4 F Al Hydroxide/Mg Hydroxide (Mylanta Ii) 30 ml PO Q6H PRN PRN PRN Reason: dyspesia Bisacodyl (Dulcolax) 10 mg RECTAL DAILY PRN PRN Reason: Constipation Buprenorphine HCl (Buprenorphine Hcl) 4 mg SL Q8H [facility]; Taper Stop: 02/09/19 02:59 Last Admin: 02/06/19 06:08 Dose: 4 mg Documented by: Clonidine (Catapres) 0.1 mg PO Q2H PRN PRN PRN Reason: Hot/Cold Sweats or Anxiety Dicyclomine HCl (Bentyl) 20 mg PO Q6H PRN PRN PRN Reason: Abdomnial Discomfort Last Admin: 02/05/19 23:09 Dose: 20 mg Documented by: Hydroxyzine Pamoate (Vistaril Pamoate Capsule) 50 mg PO Q6H PRN PRN PRN Reason: Mild Anxiety Last Admin: 02/06/19 03:34 Dose: 50 mg Documented by: Ibuprofen (Motrin) 600 mg PO Q8H PRN PRN PRN Reason: Mild-Moderate Pain (1-5/10) Loperamide HCl (Imodium) 2 - 4 mg PO UD PRN PRN Reason: LOOSE STOOLS Methocarbamol (Methocarbamol) 750 mg PO Q6H PRN PRN PRN Reason: Muscle Aches Nicotine (Nicoderm Cq (Pbkc)) 21 mg TRANSDERM. DAILY PIERO Ondansetron HCl (Zofran Odt) 4 mg PO Q6H PRN PRN PRN Reason: NAUSEA Pramipexole Dihydrochloride (Mirapex) 0.25 mg PO Q12H PRN PRN PRN Reason: Restless Legs Last Admin: 02/06/19 03:34 Dose: 0.25 mg Documented by: Senna (Senokot) 1 tablet PO QHS PRN PRN Reason: Constipation Sodium Chloride () 10 - 40 ml IV UD PRN PRN Reason: SALINE FLUSH Last Admin: 02/06/19 03:34 Dose: 10 ml Documented by: Trazodone HCl (Desyrel) 50 mg PO QHS PIERO Last Admin: 02/05/19 23:09 Dose: 50 mg Documented by: Medical Necessity - Tobacco Use Smoking Status: Never smoker Tobacco Use: Non-smoker Assessment/Plan All Active Problems Acute metabolic encephalopathy (Acute) 1. Hallucinations * Patient denies ever having had this before and denies history of schizophrenia * Patient states that it occurred while on the Suboxone * Review of literature shows case that he related with someone on Suboxone that did resolve after the patient stopped taking it and the patient is currently stating that she is still having the auditory hallucinations. * Necessary feel that these hallucinations were direct result of the withdrawal but may be more of a medication side effect, though rare. * Buprenorphine does have a half-life ranging from 20 to 40 hours * LFTs were within normal limits, we will check an ammonia level to make sure that that is not a concerning factor * Drug screen was negative 2. Opiate addiction * Patient has been on Suboxone since October * I reviewed the OARRS and it does show that her last prescription filled on the should take her through the . The patient states that she flushed all the medication down the toilet though she did not initially volunteer this when a address that if she ran out, she still should have medications according to within the system. * As above, I do not necessarily feel that the patient is going through acute opiate withdrawal with the hallucinations. Could be related with the Suboxone, given its long half-life * I will escalate the buprenorphine protocol here in the hospital as patient did have an initial low CINA score * I did reach out to [facility], and left voicemail message to try to speak with Keith Neves, who has most recently prescribed her the Suboxone * Patient will not be receiving any buprenorphine or Suboxone when she is discharged from this hospitalization. * Patient states that she has a follow-up appointment on the with a counselor there at [facility]. Greater than 35 minutes of which greater than 50% of the time was counseling the patient about opiate withdrawal and Suboxone. Also reviewing the patient's OARRS with her as well and clarifying what she did with her medications. Code Visit Inpatient E&M: 02476 Subs Hosp L3
[2019-02-06 10:32] VITALS: BP 124/70; PULSE 93; RESP 16; TEMP 37.1; O2SAT 97
[2019-02-06] MEDS: Buprenorphine HCl 2 MG TAB.SUBL SL ×2 (14:16→21:27)
[2019-02-06 15:39] VITALS: BP 101/60; PULSE 79; RESP 16; TEMP 36.8; O2SAT 99
--- NOTE | 2019-02-06 16:25 | CASEMGMT ---
Social Work Met with patient in room in regards to follow-up on substance abuse. Collaborating with Dr. Suggs. Per Dr. Suggs plan is for patient to discharge to the community tomorrow. Dr. Suggs confirming that patient does not need Inpatient Psychiatric placement. Patient planning to follow up with [facility] on Friday. Patient denies any needs or further information about resources. Patient stating to have support from family mom. This social professionals inquiring if social work could assist with any phone calls, patient declining. All questions answered. Mariela Sanchez MSW, DEMIAN
[2019-02-06 19:46] VITALS: BP 120/63; PULSE 88; RESP 18; TEMP 37.1; O2SAT 98
[2019-02-06] MEDS: traZODone 50 MG Tablet PO (21:26)
[2019-02-07 04:11] VITALS: BP 109/66; PULSE 80; RESP 16; TEMP 36.8; O2SAT 98
[2019-02-07 08:00] VITALS: PULSE 90
--- NOTE | 2019-02-07 08:22 | DCINST_ITS ---
- Discharge Diagnoses Current Active Problems: Current Active and Chronic Problems Polysubstance (including opioids) dependence w/o physiol dependence (Chronic) Acute metabolic encephalopathy (Acute) You will use the following diet at home:: No restrictions Your food should be the consistency of: Regular Your liquids should be the consistency of: Regular/Thin Discharge Activity: Return to Normal Activity Call your doctor if you observe: - - worsening hallucinations. Allergies/Adverse Reactions: Allergies ketorolac [From Toradol] Allergy (Verified 02/05/19 19:44) Itching cephalexin monohydrate [From Keflex] Adverse Reaction (Verified 02/05/19 19:44) Vomiting cyclobenzaprine HCl [From Flexeril] Adverse Reaction (Verified 02/05/19 19:44) Pain in joints Penicillins Adverse Reaction (Verified 02/05/19 19:44) Unknown promethazine [From Phenergan] Adverse Reaction (Verified 02/05/19 19:44) Other tramadol Adverse Reaction (Verified 02/05/19 19:44) Vomiting Medications to take at Discharge Acetaminophen [Tylenol] 500 mg PO Q4H PRN PRN tablet 02/07/19 Ibuprofen [Motrin] 600 mg PO Q8H PRN PRN tablet 02/07/19 Primary Care Physician: Care Physician,No Primary [Primary Care Provider] - Test Results: Test results from this visit will be discussed in further detail at your follow- up appointment, if applicable. Please Follow Up With: Orville Whipple When: appointment on 02/09/19 Proposed Discharge Date: 02/07/19
--- NOTE | 2019-02-07 08:23 | DS.PCM_ITS ---
Discharge Date and Diagnosis - Problem List Patient Problems: Active and Suspected Problems Auditory hallucination (Acute) Date of Admission: 02/05/19 Date of Discharge: 02/07/19 - Primary Discharge Diagnosis Active and Suspected Problems Auditory hallucination (Acute) - Secondary Discharge Diagnosis Chronic Problems Polysubstance (including opioids) dependence w/o physiol dependence (Chronic) History of influenza (Chronic) Hospital Course and Treatment Operations: None Procedures: None Summary of Care Provided: The patient is a 34 year old F presents with auditory hallucinations. 1. Hallucinations * Improving * Patient denies ever having had this before and denies history of schizophrenia * Patient states that it occurred while on the Suboxone * Review of literature shows case that he related with someone on Suboxone that did resolve after the patient stopped taking it and the patient is currently stating that she is still having the auditory hallucinations. * On the , I deescalated the buprenorphine, and today she is better. I suspect her hallucinations are from the Suboxone, and would hold it. * Buprenorphine does have a half-life ranging from 20 to 40 hours * LFTs were within normal limits, we will check an ammonia level to make sure that that is not a concerning factor * Drug screen was negative * Patient denies any suicidal nor homicidal ideation. She AxO x3. No indication for crisis nor inpatient psychiatric evaluation. 2. Opiate addiction * Patient has been on Suboxone since October * I reviewed the OARRS and it does show that her last prescription filled on the should take her through the . The patient states that she flushed all the medication down the toilet though she did not initially volunteer this when a address that if she ran out, she still should have medications according to within the system. * As above, I do not necessarily feel that the patient is going through acute opiate withdrawal with the hallucinations. Could be related with the Suboxone, given its long half-life * I will escalate the buprenorphine protocol here in the hospital as patient did have an initial low CINA score * I did reach out to [facility], and left voicemail message to try to speak with Keith Neves on the , who has most recently prescribed her the Suboxone. No call back. * Patient will not be receiving any buprenorphine or Suboxone when she is discharged from this hospitalization. * Patient states that she has a follow-up appointment on the with a counselor there at [facility]. * [facility] to determine if other medications other than Suboxone would be appropriate.[] Patient Problems: Active and Suspected Problems Auditory hallucination (Acute) Subjective: hallucinations improving. - Physical Exam General: Alert, No apparent distress HEENT: Atraumatic, Normocephalic Oral: Moist Mucosa, No Gingival or Mucosal Lesions/ Ulcerations Psych/Mental Status: Normal Affect, Appropriate Vital Signs Temp Pulse Resp BP Pulse Ox 36.8 C 80 16 109/66 98 02/07/19 04:11 02/07/19 04:11 02/07/19 04:11 02/07/19 04:11 02/07/19 04:11 Oxygen Delivery Method Room Air Weight: 57.2 kg Body Mass Index (BMI) 23.1 Finger Stick Blood Glucose 115 Intake and Output for Last 24 Hours 02/05/19 02/06/19 02/07/19 23:59 23:59 23:59 Intake Total 1000 / 1000 960 / 960 440 / 440 Output Total 400 / 400 Balance 1000 / 1000 560 / 560 440 / 440 Discharge Diet: No Restrictions Discharge Activity: Return to Normal Activity Call your doctor if you observe: - - worsening hallucinations. Home Medications: Medications to take at Discharge Acetaminophen [Tylenol] 500 mg PO Q4H PRN PRN tablet 02/07/19 Ibuprofen [Motrin] 600 mg PO Q8H PRN PRN tablet 02/07/19 Primary Care Physician: Care Physician,No Primary [Primary Care Provider] - Please Follow Up With: [facility] When: appointment on 02/09/19 Disposition: Home Minutes spent on discharge:: 28 Patient Condition:: Good Medical Necessity - Tobacco Use Smoking Status: Never smoker Tobacco Use: Non-smoker Meaningful Use Info Meaningful Use Diagnoses (Choose all that apply): None applicable Code Visit Inpatient E&M: 96546 Disch Hosp
[2019-02-07 10:25] VITALS: BP 111/66; PULSE 82; RESP 16; TEMP 36.9; O2SAT 100
== END 2019-02-07 11:03 | disposition home or self-care (01) | DRG 756 ==
LOC: ED 21:06 → MS3 21:35
PROVIDERS: Admitting Provider Internal Medicine; Emergency Provider Emergency Medicine; Referring Provider Internal Medicine
DX: R44.0 Auditory hallucinations (principal); T40.4X5A Adverse effect of other synthetic narcotics, initial encounter; T50.7X5A Adverse effect of analeptics and opioid receptor antagonists, initial encounter; F11.20 Opioid dependence, uncomplicated; R07.9 Chest pain, unspecified; M54.2 Cervicalgia; F19.11 Other psychoactive substance abuse, in remission; Z87.891 Personal history of nicotine dependence
CPT/HCPCS: 70450; 71046; 80053; 80307; 80320; 81001; 84484; 84703; 85025; 93005; 99282; 99284; J7030; A4216; G0480

== ENCOUNTER 2019-03-13 14:40 | Emergency (ER) | payer MEDICAID, SELFPAY ==
[2019-03-13 14:41] VITALS: BP 132/69; PULSE 74; RESP 16; TEMP 36.6; O2SAT 99; BMI 24.6
--- NOTE | 2019-03-13 15:12 | ED.VISSUMM ---
- ER Visit Summary Date of Service: 03/13/19 Chief Complaint: Hand laceration History of Present Illness: The patient is a 34 F who cut her left hand in the webspace between the thumb and index finger on a can of ravKrowderi. She rinsed it at home came to the emergency room. Unknown last tetanus Physical Examination: Afebrile vital signs stable There is a 2.5 cm full-thickness laceration to the webspace between the thumb and index finger. There is no active bleeding. Neurovascular intact distal to the laceration Emergency Department Course and Treatment: Tetanus will be updated with Adacel. Wound was locally anesthetized using 1% lidocaine washed with Shur-Clens and explored. It appears to be normal abduction and adduction of the fingers normal opposition of the thumb. It was closed using a total of 5 simple interrupted 4-0 Ethilon sutures. Wound care discussed with patient. Impression: 1. 2.5 cm left hand laceration with repair 2. Tetanus update This note was generated with [employer] dictation software. It may contain incorrect words, spelling, and punctuation that were not noted in review of the chart prior to signing ED Disposition - Plan for ED Patient: Disposition: Home or Assisted Living Instructions: LACERATION, Hand Referrals: Ck Allen III, MD [STAFF PHYSICIAN] - (in 7-`10 days for suture removal)
[2019-03-13] MEDS: Diphth,Pertuss(Acell),Tet Vac 0.5 ML Vial IM (15:20)
== END 2019-03-13 15:31 | disposition home or self-care (01) ==
PROVIDERS: Emergency Provider Emergency Medicine
DX: S61.412A Laceration without foreign body of left hand, initial encounter (principal); Z23 Encounter for immunization; W26.8XXA Contact with other sharp object(s), not elsewhere classified, initial encounter; Y93.9 Activity, unspecified; Y92.9 Unspecified place or not applicable; Z72.0 Tobacco use
CPT/HCPCS: 12001; 90471; 90715; 99284

== ENCOUNTER 2019-05-21 13:27 | Emergency (ER) | payer MEDICAID, SELFPAY ==
[2019-05-21 13:28] VITALS: BP 131/82; PULSE 106; RESP 18; TEMP 36.6; O2SAT 96; BMI 23.8
[2019-05-21 13:51] LABS: Bacteria 0 SEEN /hpf (None Seen); Mucous, Urine 0 SEEN /hpf (<or=2+)
[2019-05-21] MEDS: Phenazopyridine 95 MG Tablet 190 MG PO (13:55)
[2019-05-21 13:56] LABS: Internal QC Validated? YES +Cl - CLEAR BKGD; Pregnancy, Urine Negative Negative
[2019-05-21 13:59] LABS: Color, Urine Yellow (Yellow); Glucose, Dipstick Normal (Normal); Ketone-Dipstick 15 mg/dl (Negative); Leukocyte Esterase-Dipstick 500 /ul (Negative); Nitrite-Dipstick Negative (Negative); Occult Blood-Urine 50 /ul (Negative); Protein-Dipstick 30 mg/dl (Negative); Specific Gravity, Urine 1.025 (1.002-1.030); Urine Bilirubin Dipstick Negative (Negative); Urine Clarity Sl. Cloudy (Clear); Urine Urobilinogen Normal (Normal)
[2019-05-21 14:10] LABS: White Blood Cells 25-50 SEEN /hpf (0-5)
[2019-05-21 14:11] LABS: Red Blood Cells-Urine 0-5 SEEN /hpf (0-5); Squamous Epithelial Cells - UA 0-5 SEEN /hpf (5-10)
--- NOTE | 2019-05-21 14:24 | ED.DCSUM_ITS ---
- ER Visit Summary Date of Service: 05/21/19 Chief Complaint: [Dysuria] History of Present Illness: The patient is a 34 F [presents to the emergency department dysuria for 2 days. Patient complains of frequency and urgency. She denies any blood in her stool. She denies fever. She denies back pain. She denies vomiting. Patient had more discomfort today so she came in for evaluation. Patient was seen in urgent care yesterday and was diagnosed with a urinary tract infection and was started on Bactrim and Pyridium. Patient states that her insurance did not cover the Pyridium but she did start the Bactrim. Patient has sporadic menstrual periods although she is had a tubal ligation.] Patient denies any blood in her stool. Physical Examination: [HEENT-PERRLA, EOMI. Cranial nerves II through XII grossly intact. TMs clear. Mucous membranes moist. No adenopathy. Cardiovascular-regular rate and rhythm without murmur or ectopy Lungs-clear to auscultation, chest wall stable without crepitus or subcu emphysema Abdomen-normoactive bowel sounds, soft. Patient has some mild suprapubic tenderness to palpation. There is no rebound, rigidity, or perineal signs. Extremities-intact ?4, normal range of motion, normal pulses, atraumatic] Test Results: [Urinalysis obtained showed signs of infection. Urine negative.] Emergency Department Course and Treatment: [She was given Azo p.o.] Treatment Plan: [Patient advised to use Pyridium as needed. Patient may also buy Azo [id number].] Disposition: [Discharged home in stable condition. Advised to return if fever, worsening pain, vomiting, or conditions worsen anyway.] Impression: [UTI] This note was generated with [employer] dictation software. It may contain incorrect words, spelling, and punctuation that were not noted in review of the chart prior to signing ED Disposition - Plan for ED Patient: Referrals: Care Physician,No Primary [Primary Care Provider] -
--- NOTE | 2019-05-21 14:26 | ED.DEP ---
ED Disposition - Plan for ED Patient: Instructions: Bladder Infection, Female (Adult) Referrals: Care Physician,No Primary [Primary Care Provider] - Eulalia Woods MD [STAFF PHYSICIAN] - 3-5 Days
== END 2019-05-21 14:30 | disposition home or self-care (01) ==
LOC: ED 14:17
PROVIDERS: Emergency Provider Emergency Medicine
DX: N39.0 Urinary tract infection, site not specified (principal); Z98.51 Tubal ligation status; Z79.899 Other long term (current) drug therapy
CPT/HCPCS: 81001; 81025; 99282

== ENCOUNTER 2019-05-22 04:36 | Emergency (ER) | payer MEDICAID, SELFPAY ==
[2019-05-21 13:28] VITALS: BMI 23.8
[2019-05-22 04:37] VITALS: BP 139/97; PULSE 82; RESP 12; TEMP 37.1; O2SAT 99; BMI 24.5
--- NOTE | 2019-05-22 04:44 | RAD_ITS ---
STUDY: X-RAY CHEST REASON FOR EXAM: Female, 34 years old. Anxiety, shortness of breath and chest tightness TECHNIQUE: Single AP portable view of the chest. COMPARISON: 02/04/2019 FINDINGS: There are superimposed monitor leads. The lungs are clear and expanded. There is no demonstrated pleural abnormality. There is borderline cardiomegaly, cardiac size has increased since previous examination.. Normal mediastinum and amanda. Normal visualized pulmonary arteries. Normal visualized aortic arch and descending thoracic aorta. There are degenerative changes of the visualized thoracic spine. Normal visualized ribs, clavicles, and shoulders. There is no demonstrated abnormality of the visualized soft tissue structures of the upper abdomen. RAD/Chest 1 View (Portable) IMPRESSION: Increased cardiac size since prior examination, some of which may be due to technique. Clinical correlation advised. No pulmonary edema, congestive heart failure or confluent pneumonia. Electronically Signed: Martha Beck MD at 5:24 EST , Service support ,
--- NOTE | 2019-05-22 04:44 | EKG12_ITS ---
Test Reason : CP Blood Pressure : / mmHG Vent. Rate : 075 BPM Atrial Rate : 075 BPM P-R Int : 114 ms QRS Dur : 082 ms QT Int : 380 ms P-R-T Axes : 017 -08 020 degrees QTc Int : 424 ms Normal sinus rhythm Septal infarct , age undetermined Abnormal ECG Confirmed by ANTHONY ESPARZA, PERLA ([id number]), news videotape editor MICHEAL MAN ([id number]) on 05/23/2019 9:45:35 AM Referred By: Confirmed By:ANNETTE CRUZ MD
[2019-05-22 04:51] VITALS: BP 128/82; PULSE 86; RESP 15; O2SAT 98
--- NOTE | 2019-05-22 04:52 | ED.VISSUMM ---
- ER Visit Summary Date of Service: 05/22/19 Chief Complaint: Anxiety History of Present Illness: The patient is a 34 F presenting per EMS for anxiety. She states this started 1 hour ago. She has a history of previous anxiety attacks. She does not recall any increased stress that may have precipitated this. She complains of chest pain and shortness of breath that she has had with anxiety attacks in the past. She states that she has felt depressed but is not suicidal and has no suicide plan. She has a history of methamphetamine and heroin use. She is on Suboxone. She states she has used methamphetamine while being on Suboxone, last use was 1 week ago. She is currently on Bactrim for UTI. Denies fever, abdominal pain, nausea, vomiting. Denies other complaints. Physical Examination: Vitals are stable. Patient is afebrile. Alert no acute distress. HEENT exam is unremarkable. Neck is supple. Lungs are clear and equal bilaterally. Heart is regular rate and rhythm. Abdomen is soft nontender nondistended. Extremities are unremarkable. Skin is warm and dry. No focal neurologic deficit. Anxious, denies suicidal ideation Remainder of exam is unremarkable. Emergency Department Course and Treatment: EKG is sinus rate of 75, unchanged from previous. D-dimer negative. Troponin negative. hCG negative. Chest x-ray shows increased cardiac size since prior examination, some of which may be due to technique. Clinical correlation advised. No pulmonary edema, congestive heart failure or confluent pneumonia. This is AP versus PA view. On reevaluation, patient is resting comfortably. She is given prescription for Vistaril. Advised to follow-up with the counseling center. Advised return to the ED if worsening complaints. Disposition: Discharge home Impression: Anxiety This note was generated with [employer] dictation software. It may contain incorrect words, spelling, and punctuation that were not noted in review of the chart prior to signing ED Disposition - Plan for ED Patient: Instructions: Understanding Anxiety Disorders Prescriptions: hydrOXYzine pamoate capsule [Vistaril] 25 mg PO TID PRN PRN #20 cap PRN Reason: Anxiety Prescription Printed Referrals: Counseling,Center [GROUP OF PHYSICIANS] -
[2019-05-22 05:00] LABS: D-Dimer Quantitative (DVT/PE) 0.29 FEU/ug/m (0.27-0.49)
[2019-05-22 05:03] LABS: Internal QC Validated? YES +Cl - CLEAR BKGD; Pregnancy, Serum, hCG Quali. NEGATIVE Negative
--- NOTE | 2019-05-22 05:33 | ED.DEP ---
ED Disposition - Plan for ED Patient: Instructions: Understanding Anxiety Disorders Prescriptions: hydrOXYzine pamoate capsule [Vistaril] 25 mg PO TID PRN PRN #20 capsule PRN Reason: Anxiety Referrals: Counseling,Center [GROUP OF PHYSICIANS] -
[2019-05-22 05:44] VITALS: BP 119/75; PULSE 88; RESP 16; O2SAT 97
== END 2019-05-22 06:14 | disposition home or self-care (01) ==
PROVIDERS: Emergency Provider Emergency Medicine; Family Provider Orthopaedic Surgery; PCP Orthopaedic Surgery
DX: F41.9 Anxiety disorder, unspecified (principal); F15.90 Other stimulant use, unspecified, uncomplicated; F11.90 Opioid use, unspecified, uncomplicated; Z72.0 Tobacco use
CPT/HCPCS: 71045; 84484; 84703; 85379; 93005; 99285; A4216

== ENCOUNTER 2019-06-12 22:25 | Emergency (ER) | payer MEDICAID, SELFPAY ==
[2019-06-12 22:27] VITALS: BP 117/71; PULSE 94; RESP 14; TEMP 36.6; O2SAT 97; BMI 25.6
--- NOTE | 2019-06-12 22:46 | ED.RN ---
PT TOLD THIS RN THAT HER RIDE WAS ALREADY HERE TO GET HER. STATES SHE WILL TRY AND JUST COME BACK TOMORROW TO GET HER DENTAL PAIN ADDRESSED. PT ENCOURAGED TO COME BACK WITH ANY FURTHER ISSUES
== END 2019-06-12 22:45 | disposition left against medical advice (07) ==
LOC: ED 23:29
PROVIDERS: Emergency Provider Emergency Medicine; Family Provider Orthopaedic Surgery; PCP Orthopaedic Surgery
DX: R69 Illness, unspecified (principal); Z53.21 Procedure and treatment not carried out due to patient leaving prior to being seen by health care provider

== ENCOUNTER 2019-07-06 19:15 | Emergency (ER) | payer MEDICAID, SELFPAY ==
[2019-07-06 19:16] VITALS: BP 140/97; PULSE 115; RESP 16; TEMP 36.3; O2SAT 100; BMI 26.5
--- NOTE | 2019-07-06 19:37 | ED.DCSUM_ITS ---
- ER Visit Summary Date of Service: 07/06/19 Chief Complaint: [Dental pain] History of Present Illness: The patient is a 34 F [presents to the emergency department with left lower dental pain and jaw swelling. Patient states that she woke up with the symptoms this morning.] Patient states that she has an upper partial as she is always had poor dentition. Patient has lower teeth that are broken and carried. She does not have a dentist currently. Patient has had a fever today up to 101.1. Physical Examination: [HEENT-PERRLA, EOMI. Cranial nerves II through XII grossly intact. TMs clear. Mucous membranes moist. No adenopathy. Dentition- patient has a broken and carried left lower incisor that is tender to palpation. Patient has some gingival erythema. Patient does have left lower facial swelling however no discrete abscess palpated. No significant facial cellulitis noted. No adenopathy. Cardiovascular-regular rate and rhythm without murmur or ectopy Lungs-clear to auscultation, chest wall stable without crepitus or subcu emphysema Abdomen-normoactive bowel sounds, soft, nontender, no rebound or rigidity, no peritoneal signs. Extremities-intact ?4, normal range of motion, normal pulses, atraumatic] Test Results: [None indicated] Emergency Department Course and Treatment: [Patient was given a dose of clindamycin 300 mg p.o.] Treatment Plan: [Patient will be given a list of dentists in town and a prescription for clindamycin and a few [place] for severe pain. Patient advised to return if increasing pain, redness, swelling, or condition should worsen anyway.] Disposition: [Discharged home in stable condition] Impression: [Dental pain with early dental abscess] This note was generated with [employer] dictation software. It may contain incorrect words, spelling, and punctuation that were not noted in review of the chart prior to signing ED Disposition - Plan for ED Patient: Referrals: Care Physician,No Primary [Primary Care Provider] -
--- NOTE | 2019-07-06 19:40 | DCINST.ED_ITS ---
ED Disposition - Plan for ED Patient: Instructions: Dental Pain, Dental Abscess Prescriptions: Clindamycin HCl [Cleocin] 300 mg PO Q6H #40 cap Transmission Status: Pending to [facility] #30 Hydrocodone Bitart/Apap 5-325 [[place] 5MG-325MG] 1 tablet PO Q4H PRN PRN 2 Days #10 tablet PRN Reason: Pain Transmission Status: Sent to [email or web address] #30 Referrals: Care Physician,No Primary [Primary Care Provider] - Additional Instructions: see a dentist
--- NOTE | 2019-07-06 19:40 | ED.DEP ---
ED Disposition - Plan for ED Patient: Instructions: Dental Pain, Dental Abscess Prescriptions: Clindamycin HCl [Cleocin] 300 mg PO Q6H #40 cap Transmission Status: Pending to [facility] #30 Hydrocodone Bitart/Apap 5-325 [[place] 5MG-325MG] 1 tablet PO Q4H PRN PRN 2 Days #10 tablet PRN Reason: Pain Transmission Status: Sent to [facility] #30 Referrals: Care Physician,No Primary [Primary Care Provider] - Additional Instructions: see a dentist
[2019-07-06] MEDS: Clindamycin HCl 150 MG Capsule 300 MG PO (19:50)
[2019-07-06 19:55] VITALS: RESP 15
== END 2019-07-06 19:56 | disposition home or self-care (01) ==
PROVIDERS: Emergency Provider Emergency Medicine
DX: K04.7 Periapical abscess without sinus (principal); K08.89 Other specified disorders of teeth and supporting structures; R50.9 Fever, unspecified; Z79.899 Other long term (current) drug therapy
CPT/HCPCS: 99283

== ENCOUNTER 2019-09-07 15:16 | Emergency (ER) | payer MEDICAID, SELFPAY ==
[2019-09-07 15:17] VITALS: BP 153/84; PULSE 105; RESP 16; TEMP 36.8; O2SAT 100; BMI 27.1
--- NOTE | 2019-09-07 15:29 | ED.DCSUM_ITS ---
History of Present Illness Chief Complaint: Dental Informant: Patient Onset: Yesterday Context: Sudden Onset Timing: Continuous Quality: Pain Location: Right lower jaw Current Severity: Mild Maximum Severity: Moderate Worsened by: Chewing Relieved by: NSAIDs - Improvement but not relieved Associated Symptoms: Jaw Swelling, Facial Swellling, - - No documented fever. No hot or cold sensitivity Narrative: Patient is a 34-year-old woman with no significant past medical history who is a smoker and presents with dental pain. The started last 24 hours. She states she has bad teeth. She denies history medic fever, denies history of heart mur mur, SBE, IV drug use or being immune suppressed. She denies difficulty opening closing her mouth. She denies trouble swallowing or breathing. She denies change in voice. She has no other complaints Prior similar symptoms: Yes Recent Illness/Hospitalization: No Past Medical History - Allergies and Home Meds Allergies/Adverse Reactions: Allergies ketorolac [From Toradol] Allergy (Verified 09/07/19 15:17) Itching cephalexin monohydrate [From Keflex] Adverse Reaction (Verified 09/07/19 15:17) Vomiting cyclobenzaprine HCl [From Flexeril] Adverse Reaction (Verified 09/07/19 15:17) Pain in joints Penicillins Adverse Reaction (Verified 09/07/19 15:17) Unknown promethazine [From Phenergan] Adverse Reaction (Verified 09/07/19 15:17) Other tramadol Adverse Reaction (Verified 09/07/19 15:17) Vomiting Primary Care Physician: Care Physician,No Primary [Primary Care Provider] - Prior records reviewed: Yes Surgical History: no surgical history Lives: Alone Smoking Status: Heavy Smoker (>10/day) Alcohol: Rare Drugs: None - Family History Maternal Family History: Reports: No pertinent history Paternal Family History: Reports: No pertinent history Review of Systems General: Denies: Chills, Fever, Malaise, Sweats Eyes: Denies: Visual changes - bilaterally, Blurred Vision - bilaterally ENT: Reports: -. Denies: Bilateral ear pain, Rhinorrhea, Sore throat Physical Exam Vital Signs/Narrative: Vital Signs Temp Pulse Resp BP Pulse Ox 09/07/19 15:17 98.2 F 105 H 16 153/84 H 100 ED Disposition - Plan for ED Patient: Referrals: Care Physician,No Primary [Primary Care Provider] -
--- NOTE | 2019-09-07 15:33 | ED.VIS.DENTA ---
History of Present Illness Chief Complaint: Dental Detail of Chief Complaint: Pain right jaw and swelling Onset: Yesterday Context: Sudden Onset Timing: Continuous Quality: Pain Location: Right mid jaw Current Severity: Mild Maximum Severity: Moderate Relieved by: NSAIDs - Make pain better not alleviate Associated Symptoms: Jaw Swelling, Facial Swellling, - - Denies fever or sensitivity to hot or cold Narrative: Patient is a 34-year-old woman who is a smoker with no significant past medical history who presents with dental pain. She reports swelling of her jaw. She states she has bad teeth. She denies atraumatic fever, heart murmur, SBE, IV drug use or being immune suppressed. She is on no medications that would suppress her immune system. She denies fever, chills or night sweats. Denies change in voice. Denies difficulty opening or closing her mouth. She denies difficulty swallowing or breathing. She does reports facial swelling as well as swelling of her jaw. Prior similar symptoms: Yes Recent Illness/Hospitalization: No - Past Medical History (1) Polysubstance (including opioids) dependence w/o physiol dependence Status: Chronic Past Medical History - Allergies and Home Meds Allergies/Adverse Reactions: Allergies ketorolac [From Toradol] Allergy (Verified 09/07/19 15:17) Itching cephalexin monohydrate [From Keflex] Adverse Reaction (Verified 09/07/19 15:17) Vomiting cyclobenzaprine HCl [From Flexeril] Adverse Reaction (Verified 09/07/19 15:17) Pain in joints Penicillins Adverse Reaction (Verified 09/07/19 15:17) Unknown promethazine [From Phenergan] Adverse Reaction (Verified 09/07/19 15:17) Other tramadol Adverse Reaction (Verified 09/07/19 15:17) Vomiting Primary Care Physician: Care Physician,No Primary [Primary Care Provider] - Prior records reviewed: Yes - history of opiate dependence Surgical History: no surgical history Lives: Alone Smoking Status: Heavy Smoker (>10/day) Alcohol: Rare Drugs: None - Family History Maternal Family History: Reports: No pertinent history Paternal Family History: Reports: No pertinent history Review of Systems General: Denies: Chills, Fever, Malaise, Sweats Eyes: Denies: Visual changes - bilaterally, Blurred Vision - bilaterally ENT: Reports: - - Read HPI. Denies: Rhinorrhea, Sore throat Cardiovascular: Denies: Chest pain, Palpitations Respiratory: Denies: Dyspnea Gastrointestinal: Denies: Nausea, Vomiting Musculoskeletal: Denies: Myalgias, Arthralgias, Neck pain, Back pain, Swelling, Extremity Pain, -, - Neurological: Denies: Headache, Weakness Allergy: Denies: Uticaria, Swelling of the mouth, Swelling of the tongue Physical Exam Vital Signs/Narrative: Vital Signs Temp Pulse Resp BP Pulse Ox 09/07/19 15:17 98.2 F 105 H 16 153/84 H 100 Inital Vital Signs reviewed: Yes General: Well nourished, Well developed Head: Normocephalic, Atraumatic ENT: Moist mucous membranes, No nasal trauma, No rhinorrhea, TM's clear. Negative for: Sinus tenderness Mouth/Throat: Normal oral mucosa, Normal posterior oropharynx, Normal Stensen's duct, Dental abscess, Focal gum swelling, Gingivitis, Tenderness on tooth percussion, Widespread dental decay. Negative for: Normal inspection lips/gums, No dental tenderness, No focal abscess, No sublingual edema, Apthous ulcer, Dental trauma, Dental avulsion, Dentral fracture, Filling loss, Trismus Neck: Supple, No lymphadenopathy, Nontender, No JVD, - - Edilberto is midline. There is no inspiratory expiratory stridor. There is no evidence of Ludewig's angina. Cardiovascular: Regular rate, No murmurs, Normal S1, Normal S2, Tachycardia Respiratory: No distress, CTA bilaterally, Chest nontender Extremities: Nontender, No edema Skin: Normal color, No rash Neurological: Alert, Oriented x3, Cranial nerves II-XII grossly intact, Normal Strength, Normal Sensation Diagnostic/Tx/Re-eval - Medical Decision Making The patient's allergy to penicillin and cephalosporins she was treated with clindamycin and Naprosyn. She did receive a dose of hydrocodone. In light of the fact that she has history of polysubstance abuse and specifically opiates after reviewing prior records she will not receive a prescription for opiate analgesia. Patient has dental decay with erosion to the gumline with exposure of dentin. I believe the tooth that is causing her problems is her first right lower bicuspid. ED Disposition - Plan for ED Patient: Disposition: Home or Assisted Living Diagnosis: Dental abscess, Dental caries extending into pulp Instructions: Dental Abscess Prescriptions: Clindamycin [Cleocin] 150 mg PO 4X/DAY #40 cap Transmission Status: Pending to [facility] Naproxen [Naprosyn] 500 mg PO BID #14 tab Transmission Status: Pending to [facility] Referrals: Care Physician,No Primary [Primary Care Provider] - Geeta Acevedo [NON-STAFF] - 5-7 Days
[2019-09-07] MEDS: Clindamycin HCl 150 MG Capsule PO (15:40)
[2019-09-07] MEDS: HYDROcodone Bitartrate/Apap 5/325 Tablet PO (15:40)
== END 2019-09-07 15:52 | disposition home or self-care (01) ==
PROVIDERS: Emergency Provider Emergency Medicine
DX: K04.7 Periapical abscess without sinus (principal); K02.9 Dental caries, unspecified; F17.200 Nicotine dependence, unspecified, uncomplicated; F11.21 Opioid dependence, in remission; Z88.8 Allergy status to other drugs, medicaments and biological substances; Z88.5 Allergy status to narcotic agent; Z88.1 Allergy status to other antibiotic agents; Z88.0 Allergy status to penicillin
CPT/HCPCS: 99283

== ENCOUNTER 2019-10-18 21:06 | Emergency (ER) | payer MEDICAID, SELFPAY ==
[2019-10-18 21:07] VITALS: BP 145/92; PULSE 107; RESP 16; TEMP 36.9; O2SAT 100; BMI 27.2
[2019-10-18] MEDS: diazePAM 5 MG Tablet PO (21:53)
--- NOTE | 2019-10-18 22:00 | RAD_ITS ---
STUDY: X-RAY CHEST REASON FOR EXAM: Female, 34 years old. SOB TECHNIQUE: Single AP portable view of the chest. COMPARISON: 02/04/2019. FINDINGS: No pleural effusion. Hazy opacity in the left midlung, consistent with pneumonia. Normal size heart. Normal mediastinum and amanda. Normal visualized pulmonary arteries. Normal visualized aortic arch and descending thoracic aorta. Normal visualized thoracic spine. Normal visualized ribs, clavicles, and shoulders. There is no demonstrated abnormality of the visualized soft tissue structures of the upper abdomen. RAD/Chest 1 View (Portable) IMPRESSION: Opacity in the left midlung consistent with pneumonia. Consider typical and atypical etiologies. Electronically Signed: Suzette Alva MD at 22:29 EDT Tel , Service support ,
--- NOTE | 2019-10-18 22:42 | ED.VISSUMM ---
- ER Visit Summary Date of Service: 10/18/19 Chief Complaint: Jittery History of Present Illness: The patient is a 34 F who feels jittery for the past several hours. She is not sure what brought this on. She is currently being treated for pneumonia. She was diagnosed at a different facility 5 days ago by chest x-ray. She was treated with doxycycline and prednisone. She had prednisone before and does not think it is causing her jitters. She is also complaining of low back pain after a fall where she caught herself days ago. The pain is in her right lower back. Denies associated symptoms there. Physical Examination: Afebrile and vital signs unremarkable except for heart rate of 107. Patient has a very fast tremor to her hands bilaterally. No other abnormal neurologic findings on exam. Right lumbar paraspinal muscles tender to palpation. Spine is nontender. Good strength and sensation. Lungs clear. Heart regular. Test Results: Chest x-ray shows a left midlung pneumonia. Emergency Department Course and Treatment: Patient was treated with Valium while awaiting results. Jitters resolved. She felt that this was likely from anxiety. This also help with her muscle pain in her back. I discussed her pneumonia. It is likely too early to notice improvement, the patient has continued symptoms, so we will try additional antibiotics. After discussion with her. We will treat her with Augmentin. She has an allergy to Keflex. She said that it did not work. She also reports an allergy to penicillin, but this was GI upset. So, the patient will try Augmentin here with Zofran. She will follow-up for resolution of her pneumonia. Return for shortness of breath, chest pain, or any other new or worsening symptoms. She will maintain social isolation precautions. No indication for COVID testing at this time. Treatment Plan: As above Disposition: Discharge Impression: Left lung pneumonia, anxiety This note was generated with [employer] dictation software. It may contain incorrect words, spelling, and punctuation that were not noted in review of the chart prior to signing ED Disposition - Plan for ED Patient: Referrals: Care Physician,No Primary [Primary Care Provider] -
--- NOTE | 2019-10-18 22:46 | ED.DEP ---
ED Disposition - Plan for ED Patient: Instructions: Pneumonia Prescriptions: Amox/Clavulanate Tablet [Augmentin Tablet] 875 mg PO Q12H #20 tab Prescription Printed Ondansetron [Zofran Odt] 4 mg PO Q8H PRN PRN #10 tab PRN Reason: Nausea Prescription Printed Referrals: Geeta Acevedo [NON-STAFF] -
[2019-10-18] MEDS: Ondansetron ODT 4 MG Tablet PO (23:03)
[2019-10-18] MEDS: Amox/Clavulanate 875 MG Tablet PO (23:03)
[2019-10-18 23:04] VITALS: BP 128/91; PULSE 81; RESP 18; O2SAT 99
== END 2019-10-18 23:06 | disposition home or self-care (01) ==
LOC: ED 22:40
PROVIDERS: Emergency Provider Emergency Medicine
DX: J18.9 Pneumonia, unspecified organism (principal); F41.9 Anxiety disorder, unspecified; R25.1 Tremor, unspecified; M54.5 Low back pain; Z88.1 Allergy status to other antibiotic agents; Z88.0 Allergy status to penicillin; Z72.0 Tobacco use
CPT/HCPCS: 71045; 99283

== ENCOUNTER 2020-03-12 22:31 | Emergency (ER) | payer MEDICAID, SELFPAY ==
[2020-03-12 22:31] VITALS: BP 141/101; PULSE 113; RESP 20; TEMP 36.7; O2SAT 99; BMI 25.6
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
[2020-03-12] MEDS: 0.9% Normal Saline 1,000 ML 1000 ML IV (22:56)
[2020-03-12] MEDS: Ondansetron 4 MG/2 ML Vial IV (22:56)
[2020-03-12 23:11] LABS: Absolute Lymphocyte Count 1.08 X10^3/uL (0.83-4.51); Absolute Neutrophil Count 5.6 X10^3/uL (2.0-7.7); Basophil# 0.01 X10^3/uL; Basophil% 0.1 % (0-1); Eosinophil# 0.11 X10^3/uL; Eosinophils% 1.5 % (0-5); Hematocrit 46.5 % (37-47); Hemoglobin 14.8 g/dL (12.0-15.0); Lymphocyte # 1.08 X10^3/ul (4.0); Lymphocyte % 14.7 % (19-41); Mean Corp Hgb Conc 31.8 g/dL (32-36); Mean Corpuscular Hgb 27.1 pg (27.0-32.0); Mean Platelet Vol. 10.6 fl (6.2-12.0); Monocyte# 0.57 X10^3/uL; Monocyte% 7.7 % (0-10); NRBC Flagged by Analyzer 0 % (0-5); Neutrophil # 5.58 X10^3/uL (2.7-7.7); Neutrophil % 75.7 % (47-70); Platelet Count 281 K/mm3 (150-450); RBC Distribution Width CV 13.7 % (11.6-14.6); RBC Distribution Width SD 42.5 fl (35.1-43.9); Red Blood Count 5.47 M/mm3 (4.2-5.4); White Blood Count 7.4 K/mm3 (4.4-11.0)
--- NOTE | 2020-03-12 23:16 | ED.RN ---
patient observed running out of department. Patient stopped and asked where she is going. Patient states i need to go find my son. This RN observed site where patient took out her own IV. Patient leaves on her own out of department. aware.
[2020-03-12 23:18] LABS: Internal QC Validated? YES +Cl - CLEAR BKGD; Pregnancy, Serum, hCG Quali. NEGATIVE Negative
[2020-03-12 23:22] LABS: Anion Gap 4 (5-15); BUN 10 mg/dL (7-18); BUN/Creat Ratio 11.1 RATIO (10-20); Calcium,Total 9.9 mg/dL (8.5-10.1); Chloride 107 mmol/L (98-107); EST Glomerular Filtration Rate 75 mL/min (>60); Est Glom Filt Rate - Afr Amer 91 mL/min (>60); Glucose 130 mg/dL (74-106); Potassium 3.9 mmol/L (3.5-5.1); Sodium Level 138 mmol/L (136-145)
[2020-03-13] VITALS (9 sets, daily range): BP systolic 113–130; BP diastolic 62–89; PULSE 82–130; RESP 14–34; TEMP 36.6; O2SAT 99–100
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
--- NOTE | 2020-03-13 00:57 | ED.RN ---
patient is hysterical, crying and yelling that her kids and family are not safe. Emotional support provided, spoke with patients father who states he has custody of her kids and that they are all safe. patient reassured. Pt states she is hearing voices and that they are saying inappropriate things but wont tell this nurse what. She is fixated on the fear that her kids and family are not safe.
[2020-03-13 01:15] LABS: Amphetamine Urine VISTA POSITIVE (<1000 ng/mL); Barbiturate Urine VISTA NEGATIVE (< 200 ng/mL); Benzodiazepine Urine VISTA NEGATIVE (< 200 ng/mL); Cocaine Urine VISTA NEGATIVE (< 300 ng/mL); Ecstacy Urine VISTA POSITIVE (< 500 ng/mL); Methadone Urine VISTA NEGATIVE (< 300 ng/mL); PCP Urine VISTA NEGATIVE (< 25 ng/mL); THC Urine VISTA NEGATIVE (< 50 ng/mL); Vista UDS pH Range 5
[2020-03-13] MEDS: Ziprasidone IM 20 MG/ML VIAL IM (01:15)
[2020-03-13 01:55] LABS: Alcohol, Blood (Medical)-Serum < 3.0 mg/dL
--- NOTE | 2020-03-13 02:24 | ED.RN ---
patients information faxed to crisis at this time
--- NOTE | 2020-03-13 08:53 | ED.RN ---
Nishi from counseling center called and pt is pending at [facility]
--- NOTE | 2020-03-13 08:56 | ED.RN ---
[facility] declined pt due to not meeting criteria
--- NOTE | 2020-03-13 10:19 | CM.ED ---
SOCIAL WORK Spoke with Neisha with Crisis. Per Neisha, referral is pending with [facility]. Josie Nolasco, STEVEDORE DOCK, BANK CLERK
--- NOTE | 2020-03-13 10:42 | CM.ED ---
SOCIAL WORK Met with patient per request. Updated patient that Crisis is working on hospitalization. Patient discussed mental health and substance abuse. Patient states I just feel like I'm losing pieces of time, reality, and I don't want to lose reality. Department received call from Mikal with [facility]. All questions answered regarding patient's updated vitals and behavior. Mikal marroquin will review with physician and contact Crisis. Josie Nolasco, BUSINESS CONTINUITY DIRECTOR, NAME PLATE STAMPER
--- NOTE | 2020-03-13 11:05 | CM.ED ---
SOCIAL WORK Updated by Crisis, patient accepted to [facility]. Patient updated. Copy of [place] [facility] faxed to [facility] per request. Josie Nolasco, TOP SPOTTER, PUBLIC HEALTH TEACHER
[2020-03-13] MEDS: LORazepam 1 MG Tablet PO (11:14)
== END 2020-03-13 12:12 ==
PROVIDERS: Emergency Provider Emergency Medicine
DX: F23 Brief psychotic disorder (principal); T14.91XA Suicide attempt, initial encounter; X83.8XXA Intentional self-harm by other specified means, initial encounter; Y93.9 Activity, unspecified; Y92.9 Unspecified place or not applicable; Y99.9 Unspecified external cause status; F15.10 Other stimulant abuse, uncomplicated; Z87.891 Personal history of nicotine dependence
CPT/HCPCS: 80048; 80307; 80320; 84703; 85025; 96361; 96372; 96374; 99285; J7030; G0480; J2405; J3486

== ENCOUNTER 2020-03-28 22:56 | Emergency (ER) | payer MEDICAID, SELFPAY ==
[2020-03-28 22:57] VITALS: BP 127/73; PULSE 112; RESP 16; TEMP 37.2; O2SAT 99; BMI 24.5
--- NOTE | 2020-03-28 23:31 | ED.VIS.GEN ---
History of Present Illness Chief Complaint: Bite Narrative: . This patient is a 35-year-old female who presents after cat bites to both arms. This is a domestic cat. They were trying to pick it up to take it for a veterinary appointment and it latched on and bit her multiple times to both forearms and hands. This is worse on the left. Since that time she has developed redness involving the base of the right hand and then the left hand and wrist with redness and swelling. She is not diabetic. She does report malaise and chills but no fevers. Past Medical History - Allergies and Home Meds Allergies/Adverse Reactions: Allergies ketorolac [From Toradol] Allergy (Verified 03/28/20 23:00) Itching cephalexin monohydrate [From Keflex] Adverse Reaction (Verified 03/28/20 23:00) Vomiting cyclobenzaprine HCl [From Flexeril] Adverse Reaction (Verified 03/28/20 23:00) Pain in joints Penicillins Adverse Reaction (Verified 03/28/20 23:00) Unknown promethazine [From Phenergan] Adverse Reaction (Verified 03/28/20 23:00) Other tramadol Adverse Reaction (Verified 03/28/20 23:00) Vomiting Primary Care Physician: Care Physician,No Primary [Primary Care Provider] - Past Medical History: - - Depression Surgical History: no surgical history Smoking Status: Never smoker - Family History Maternal Family History: Reports: No pertinent history Paternal Family History: Reports: No pertinent history Review of Systems All systems negative except as indicated General: Reports: Chills, Malaise. Denies: Fever Eyes: Denies: Visual changes - bilaterally ENT: Denies: Bilateral ear pain Cardiovascular: Denies: Chest pain Respiratory: Denies: Dyspnea Gastrointestinal: Denies: Nausea, Vomiting, Diarrhea Musculoskeletal: Reports: Extremity Pain. Denies: Myalgias, Arthralgias Skin: Reports: Rash Neurological: Denies: Headache Hematologic: Denies: Easy bruising Allergy: Denies: Uticaria Physical Exam Vital Signs/Narrative: Vital Signs Temp Pulse Resp BP Pulse Ox 03/28/20 22:57 99 F 112 H 16 127/73 H 99 Inital Vital Signs reviewed: Yes General: Well nourished Head: Normocephalic Eyes: EOMI ENT: Moist mucous membranes Neck: Supple Cardiovascular: Regular rhythm, Tachycardia Respiratory: No distress, CTA bilaterally Abdomen: Soft Extremities: - - (see MDM, character limit for physical exam on template) Skin: Normal color Neurological: Alert Psychological: Normal affect Diagnostic/Tx/Re-eval - Medical Decision Making (Extremity exam?patient has multiple superficial puncture wounds and scratches to the bilateral hands wrists and forearms. There is erythema involving the right hand from the base of the thumb to about the level of the wrist. There is erythema of the left hand beginning at the base of the thumb extending along the hand and volar wrist and forearm almost to the elbow I do not appreciate any lymphangitic streaking. No wound drainage or discharge no fluctuance or abscess. She does have some pain with extension of the wrist but good short arc range of motion of the wrist without pain she is neurovascularly intact she has palpable pulses brisk capillary refill and normal sensation light touch normal motor function). Patient was treated with IV fluids, IV clindamycin and Cipro given allergies to penicillins and cephalosporins. Serum laboratory studies were unremarkable as above. Lactic acid is 2.1 while upper limit of normal is 2.0 I do not believe this minimal elevation to be clinically relevant. Patient's tachycardia resolved with IV fluids. She is resting comfortably on reevaluation. Given these findings I do believe the patient appropriate for outpatient management. We will place on oral clindamycin and Cipro. She was given clear return precautions of specific signs and symptoms to monitor for that should prompt immediate return here to the urgency department for reevaluation. She is agreeable to this plan. All questions answered at bedside. Patient discharged. ED Disposition - Plan for ED Patient: Disposition: Home or Assisted Living Diagnosis: Cat bite, Cellulitis of arm Instructions: ED Bite Cat, ED Cellulitis Prescriptions: Ciprofloxacin [Cipro] 500 mg PO BID #20 tab Prescription Printed Clindamycin HCl [Cleocin] 300 mg PO Q6H #40 cap Prescription Printed Referrals: Care Physician,No Primary [Primary Care Provider] -
[2020-03-28] MEDS: 0.9% Normal Saline 1,000 ML 999 ML IV (23:38)
[2020-03-28 23:39] LABS: Absolute Lymphocyte Count 1.17 X10^3/uL (0.83-4.51); Absolute Neutrophil Count 6.7 X10^3/uL (2.0-7.7); Basophil# 0.02 X10^3/uL; Basophil% 0.2 % (0-1); Eosinophil# 0.14 X10^3/uL; Eosinophils% 1.6 % (0-5); Hematocrit 35.2 % (37-47); Hemoglobin 11.4 g/dL (12.0-15.0); Lymphocyte # 1.17 X10^3/ul (4.0); Lymphocyte % 13.4 % (19-41); Mean Corp Hgb Conc 32.4 g/dL (32-36); Mean Corpuscular Hgb 27.5 pg (27.0-32.0); Mean Platelet Vol. 11.2 fl (6.2-12.0); Monocyte# 0.66 X10^3/uL; Monocyte% 7.6 % (0-10); NRBC Flagged by Analyzer 0 % (0-5); Neutrophil # 6.71 X10^3/uL (2.7-7.7); Neutrophil % 76.7 % (47-70); Platelet Count 191 K/mm3 (150-450); RBC Distribution Width CV 13.6 % (11.6-14.6); RBC Distribution Width SD 42.5 fl (35.1-43.9); Red Blood Count 4.14 M/mm3 (4.2-5.4); White Blood Count 8.7 K/mm3 (4.4-11.0)
[2020-03-28] MEDS: Ciprofloxacin 400 MG/200 ML BAG 200 MG IV (23:44)
[2020-03-28 23:49] LABS: Anion Gap 7 (5-15); BUN 6 mg/dL (7-18); BUN/Creat Ratio 7.3 RATIO (10-20); Calcium,Total 8.7 mg/dL (8.5-10.1); Chloride 109 mmol/L (98-107); Creatinine, Serum 0.82 mg/dL (0.55-1.02); EST Glomerular Filtration Rate 84 mL/min (>60); Est Glom Filt Rate - Afr Amer 102 mL/min (>60); Estimated Creatinine Clearance 75.74 ml/min; Glucose 105 mg/dL (74-106); Potassium 2.9 mmol/L (3.5-5.1); Sodium Level 142 mmol/L (136-145)
[2020-03-28 23:54] LABS: Lactic Acid 2.1 mmol/L (0.4-1.9)
[2020-03-28 23:55] VITALS: BP 113/68; PULSE 101; RESP 17; TEMP 37.1; O2SAT 100
[2020-03-29] MEDS: oxyCODONE 5 MG Tablet PO (00:29)
[2020-03-29 01:31] VITALS: BP 104/56; PULSE 66; RESP 16; O2SAT 98
[2020-03-29 03:35] LABS: Reflex Lactate? Y
== END 2020-03-29 01:32 | disposition home or self-care (01) ==
PROVIDERS: Emergency Provider Emergency Medicine
DX: L03.114 Cellulitis of left upper limb (principal); L03.113 Cellulitis of right upper limb; S61.432A Puncture wound without foreign body of left hand, initial encounter; S61.431A Puncture wound without foreign body of right hand, initial encounter; S61.532A Puncture wound without foreign body of left wrist, initial encounter; S61.531A Puncture wound without foreign body of right wrist, initial encounter; S51.832A Puncture wound without foreign body of left forearm, initial encounter; S51.831A Puncture wound without foreign body of right forearm, initial encounter; W55.01XA Bitten by cat, initial encounter; Y93.9 Activity, unspecified; Y92.9 Unspecified place or not applicable; Y99.9 Unspecified external cause status; F32.9 Major depressive disorder, single episode, unspecified; Z79.899 Other long term (current) drug therapy
CPT/HCPCS: 80048; 83605; 85025; 87040; 96365; 96366; 96367; 99282; J7030; J7050; A4216; J0744

== ENCOUNTER 2020-04-25 01:07 | Emergency (ER) | payer MEDICAID, SELFPAY ==
[2020-04-25 01:08] VITALS: BP 141/79; PULSE 110; RESP 18; TEMP 36.2; O2SAT 100; BMI 26.4
--- NOTE | 2020-04-25 01:22 | ED.VIS.GEN ---
History of Present Illness Chief Complaint: Complaint Informant: Patient Narrative: States she developed dysuria urgency hour ago. She has had a history of UTI in the past. Denies fevers or chills or back pain. No hematuria. No home treatment. Current severity is moderate. Worse by urinating. Denies history of tubal ligation in the past. Last menstrual period was 1 week ago. - Past Medical History (1) Auditory hallucination Status: Acute (2) History of influenza Status: Chronic (3) Polysubstance (including opioids) dependence w/o physiol dependence Status: Chronic Past Medical History - Allergies and Home Meds Allergies/Adverse Reactions: Allergies ketorolac [From Toradol] Allergy (Verified 04/25/20 01:08) Itching cephalexin monohydrate [From Keflex] Adverse Reaction (Verified 04/25/20 01:08) Vomiting cyclobenzaprine HCl [From Flexeril] Adverse Reaction (Verified 04/25/20 01:08) Pain in joints Penicillins Adverse Reaction (Verified 04/25/20 01:08) Unknown promethazine [From Phenergan] Adverse Reaction (Verified 04/25/20 01:08) Other tramadol Adverse Reaction (Verified 04/25/20 01:08) Vomiting Primary Care Physician: Care Physician,No Primary [Primary Care Provider] - Prior records reviewed: Yes Past Medical History: - - See problem list Surgical History: no surgical history Smoking Status: Never smoker Alcohol: None Drugs: None - Family History Maternal Family History: Reports: No pertinent history Paternal Family History: Reports: No pertinent history Review of Systems General: Denies: Chills, Fever, Sweats Eyes: Denies: Visual changes - bilaterally, Diplopia ENT: Denies: Rhinorrhea, Sore throat Cardiovascular: Denies: Chest pain, Palpitations Respiratory: Denies: Dyspnea, Cough, Dyspnea on exertion Gastrointestinal: Denies: Abdominal pain, Nausea, Vomiting, Diarrhea, Melena, Hematochezia Genitourinary: Reports: Dysuria. Denies: Hematuria, Frequency Musculoskeletal: Denies: Back pain, Extremity Pain Skin: Denies: Rash, Wounds Neurological: Denies: Headache, Weakness, Numbness Physical Exam Vital Signs/Narrative: Vital Signs Temp Pulse Resp BP Pulse Ox 04/25/20 01:08 97.2 F L 110 H 18 141/79 H 100 General: Well nourished, Well developed, No Acute Distress Head: Normocephalic, Atraumatic Eyes: Perrl, EOMI ENT: Moist mucous membranes, No rhinorrhea Neck: Supple, Nontender Cardiovascular: Regular rate, Regular rhythm, No murmurs Respiratory: No distress, CTA bilaterally, Chest nontender Abdomen: Soft, Nontender, Nondistended, Normal bowel sounds Back: Nontender, Normal Inspection Extremities: Nontender, No edema Skin: Normal color, No rash Neurological: Alert, Oriented x3, Cranial nerves II-XII grossly intact, Normal Strength, Normal Sensation Psychological: Normal affect, Normal Mood Diagnostic/Tx/Re-eval - Medical Decision Making Patient given ibuprofen. Urine analysis and obtained. See negative. Urinalysis shows 50-100 white blood cells on the microscopic with 0 bacteria however I feel the patient she started having UTI symptoms. Given Macrobid and Pyridium. Will be discharged with the same to follow-up as an outpatient for suspected UTI cystitis ED Disposition - Plan for ED Patient: Disposition: Home or Assisted Living Diagnosis: Urinary tract infection Instructions: ED CYSTITIS Female Adult Prescriptions: Nitrofurantoin Macrocrystals [Macrobid] 100 mg PO Q12 #10 cap Prescription Printed Phenazopyridine HCl [Pyridium] 200 mg PO TID #10 tab Prescription Printed Referrals: Filippo Barreto MD [STAFF PHYSICIAN] -
[2020-04-25] MEDS: Ibuprofen 600 MG Tablet PO (01:31)
[2020-04-25 01:34] LABS: Bacteria 0 SEEN /hpf (None Seen); Color, Urine Yellow (Yellow); Mucous, Urine 0 SEEN /hpf (<or=2+); Urine Clarity Cloudy (Clear)
[2020-04-25 01:35] LABS: Glucose, Dipstick Normal (Normal); Internal QC Validated? YES +Cl - CLEAR BKGD; Ketone-Dipstick 5 mg/dl (Negative); Leukocyte Esterase-Dipstick 500 /ul (Negative); Nitrite-Dipstick Negative (Negative); Occult Blood-Urine 250 /ul (Negative); Pregnancy, Urine Negative Negative; Protein-Dipstick 100 mg/dl (Negative); Urine Bilirubin Dipstick Negative (Negative); Urine Urobilinogen Normal (Normal)
[2020-04-25 01:40] LABS: Red Blood Cells-Urine 25-50 SEEN /hpf (0-5); Squamous Epithelial Cells - UA 0-5 SEEN /hpf (5-10); White Blood Cells 50-100 SEEN /hpf (0-5)
[2020-04-25] MEDS: Phenazopyridine 95 MG Tablet 190 MG PO (01:52)
[2020-04-25] MEDS: Nitrofurantoin Macrocrystals 100 MG Capsule PO (01:52)
== END 2020-04-25 02:12 | disposition home or self-care (01) ==
PROVIDERS: Emergency Provider Emergency Medicine
DX: N39.0 Urinary tract infection, site not specified (principal); Z79.899 Other long term (current) drug therapy; Z87.440 Personal history of urinary (tract) infections
CPT/HCPCS: 81001; 81025; 99283

== ENCOUNTER → 2020-05-02 | Outpatient (CLI) | payer MEDICAID, SELFPAY ==
[2020-05-02 17:21] VITALS: BMI 25.4
== END | disposition home or self-care (01) ==
LOC: LABSPEC 17:41
PROVIDERS: Visit Provider Physician Assistant Surgical
DX: Z20.828 Contact with and (suspected) exposure to other viral communicable diseases (principal)
CPT/HCPCS: 87635; U0003

== ENCOUNTER 2022-01-11 02:49 | Emergency (ER) | payer MEDICAID, SELFPAY ==
[2022-01-11 02:50] VITALS: BP 130/90; PULSE 125; RESP 18; TEMP 36.6; O2SAT 100; BMI 26.1
--- NOTE | 2022-01-11 03:50 | EX.ED.DYSGE1 ---
HPI History of Present Illness Chief Complaint: Cellulitis Narrative Narrative: Patient is a 36-year-old female with past medical history of peripheral edema as well as polysubstance abuse. She states that she was stung by a bee on Friday evening. She states that by she had increased redness and swelling to the right lower leg. She states she went to an urgent care and was placed on antibiotics and prednisone. Patient states she was concerned that this was not appropriate treatment and secondary to this presents for repeat evaluation/second opinion. [facility] Medical History (Updated 01/11/22 @ 03:[address] Deng Montero, DO) Bilateral lower extremity edema Cellulitis of right foot Home Medications azithromycin 250 mg tablet 250 mg PO QDAY #6 tabs 01/10/22 [Rx Last Taken Unknown] prednisone 10 mg tablet 10 mg PO DAILY #30 tabs 01/10/22 [Rx Last Taken Unknown] desonide 0.05 % topical cream 1 applic topical TID PRN itching #60 grams 01/11/22 [Rx Last Taken Unknown] Allergy/AdvReac Type Severity Reaction Status Date / Time ketorolac [From Toradol] Allergy Itching Verified 01/11/22 02:53 cephalexin monohydrate AdvReac Vomiting Verified 01/11/22 02:53 [From Keflex] cyclobenzaprine HCl AdvReac Pain in Verified 01/11/22 02:53 [From Flexeril] joints Penicillins AdvReac Unknown Verified 01/11/22 02:53 promethazine [From Phenergan] AdvReac Other Verified 01/11/22 02:53 tramadol AdvReac Vomiting Verified 01/11/22 02:53 Social History Smoking Status: Never smoker ROS ROS ED Constitutional Constitutional ED: Denies chills or fever(s) ENT ENT ED: Denies sore throat Cardiovascular Cardiovascular: Denies chest pain Respiratory/Chest Respiratory/Chest: Denies cough or dyspnea Gastrointestinal Gastrointestinal: Denies abdominal pain, diarrhea, nausea or vomiting Genitourinary Genitourinary ED: Denies dysuria Musculoskeletal Musculoskeletal: Reports other Details: Positive right lower leg pain ; Denies myalgias Integumentary Reports rash Neurologic Neurologic: Denies headache(s) Hematologic/Lymphatic Hematologic/Lymphatic: Denies easy bleeding or easy bruising EXAM Physical Exam Const Vital Signs: 01/11/22 02:50 Temperature 98 F Temperature Source Temporal Pulse Rate 125 H Respiratory Rate 18 Blood Pressure 130/90 H Blood Pressure Mean 103 Pulse Ox 100 Oxygen Delivery Method Room Air Positive well nourished and well developed General Appearance ED: well developed HEENT Reports moist mucous membranes HEENT Narrative: No tongue or lip swelling no oral lesions no airway edema or compromise Eyes PERRL and EOMs intact bilaterally Neck supple Resp normal respiratory effort and clear to auscultation bilaterally Cardio regular rhythm Rate: tachycardic Extremity Extremity Narrative: Patient has erythema and warmth to the dorsal aspect of the right foot. There is extension of this erythema up the right calf to the distal thigh just above the knee. There is no obvious abscess formation noted. No crepitance. There is slight asymmetric edema of the right lower leg compared to left with negative Homans' sign. Neuro oriented x3 and CN's II-XII intact bilaterally Sensorium / Orientation: alert Psych mental status grossly normal Skin Skin Narrative: Soft tissue changes to the right lower leg as documented above MDM MDM MDM Narrative Medical decision making narrative: Patient presented to the ER afebrile. She had no signs of respiratory distress and was satting 100% on room air. She is only been on steroids and antibiotics for approximately 24 hours. She does have asymmetric redness warmth and swelling but with her history of insect sting and the fact that it is pruritic I do believe this is continued allergic reaction. Therefore elected to give her epinephrine and Kenalog in the ER. She does have a family history of DVT and otherwise there are no risk factors for this but based on the asymmetric swelling an outpatient venous duplex will be obtained. As DVT is low my differential I do not feel there is need for prophylaxis with Lovenox. Patient was advised to continue her steroids and antibiotics but at this time as she is afebrile and in no acute distress I do not believe there is need for further work-up and she is otherwise safe for discharge Discharge Plan Triage Chief Complaint: Cellulitis Other Complaint: Itching ED Provider: Deng Montero Dx/Rx/DC Orders Clinical Impression: Allergic reaction to insect sting, Edema, peripheral Instructions: First Aid: Allergic Reactions, Allergy Overview Prescriptions: New desonide 0.05 % cream 1 applic topical TID PRN (Reason: itching) Qty: 60 0RF No Action prednisone 10 mg tablet 10 mg PO DAILY Qty: 30 0RF Rx Instructions: 4 tablets daily for 3 days, then 3 tablets daily for 3 days, then 2 tablets daily for 3 days, then 1 tablet daily for 3 days azithromycin 250 mg tablet 250 mg PO QDAY Qty: 6 0RF Rx Instructions: 2 tablets today, then 1 tablet daily on days 2 through 5 Other Ambulatory Orders: Venous Duplex US, Unilateral (Routine) Facility: [facility] - Location: [facility] Ordered By: Dr. Deng Montero Primary Care Provider: Care Physician,Pamela Primary Referrals: Care Physician,Pamela Primary [Primary Care Provider] - [facility] [NON-STAFF] - 3-5 Days if not improving Activity Restrictions/Additional Instructions: Please continue the prednisone antibiotic given to you by urgent care. You may use the topical steroid cream as needed up to 3 times a day for improved itch control. Please return to the ER for your outpatient venous duplex to ensure there is no blood clot as the cause of your swelling. If you develop a fever over 100.4 despite taking her medications or have any further concerns please return to the ER for repeat evaluation. Disposition Disposition: Home, Self Care
[2022-01-11] MEDS: Triamcinolone Acetonide 40 MG/ML Vial 80 MG IM (04:39)
[2022-01-11] MEDS: Epi Pen (EQUIV) 0.3 MG Syringe IM (04:42)
[2022-01-11 04:52] VITALS: PULSE 89; RESP 15; O2SAT 100
== END 2022-01-11 04:54 | disposition home or self-care (01) ==
PROVIDERS: Emergency Provider Emergency Medicine; Visit Provider Emergency Medicine
DX: T63.441A Toxic effect of venom of bees, accidental (unintentional), initial encounter (principal); R60.0 Localized edema; Z79.899 Other long term (current) drug therapy
CPT/HCPCS: 96372; 99284

== ENCOUNTER 2022-05-19 04:16 | Emergency (ER) | payer MEDICAID, SELFPAY ==
[2022-05-19 04:17] VITALS: TEMP 36.6; BMI 28.5
[2022-05-19 04:19] VITALS: BP 111/74; PULSE 101; RESP 14; O2SAT 97
--- NOTE | 2022-05-19 05:11 | EX.ED.DYSGE1 ---
HPI History of Present Illness Chief Complaint: Complaint Narrative Narrative: Patient is a 37-year-old female with past medical history of urinary tract infection as well as polysubstance abuse. She states that over the last 2 to 3 days she has had urinary frequency urgency and dysuria. She denies any vaginal bleeding or discharge or concern for or STD. She states that she has had urinary tract infections in the past and this feels similar nature. She denies any flank pain or fevers or chills. However as she is concerned that she may need antibiotic because of her symptoms she presents for evaluation. [facility] Medical History (Updated 05/19/22 @ 05:[address] Deng Montero, DO) Bilateral lower extremity edema Cellulitis of right foot Home Medications azithromycin 250 mg tablet 250 mg PO QDAY #6 tabs 01/10/22 [Rx Last Taken Unknown] prednisone 10 mg tablet 10 mg PO DAILY #30 tabs 01/10/22 [Rx Last Taken Unknown] desonide 0.05 % topical cream 1 applic topical TID PRN itching #60 grams 01/11/22 [Rx Last Taken Unknown] phenazopyridine 200 mg tablet (Pyridium) 200 mg PO TID 2 days #6 tabs 05/19/22 [Rx Last Taken Unknown] sulfamethoxazole 800 mg-trimethoprim 160 mg tablet (Bactrim DS) 1 tab PO BID 7 days #14 tabs 05/19/22 [Rx Last Taken Unknown] Allergy/AdvReac Type Severity Reaction Status Date / Time ketorolac [From Toradol] Allergy Itching Verified 05/19/22 04:19 cephalexin monohydrate AdvReac Vomiting Verified 05/19/22 04:19 [From Keflex] cyclobenzaprine HCl AdvReac Pain in Verified 05/19/22 04:19 [From Flexeril] joints Penicillins AdvReac Unknown Verified 05/19/22 04:19 promethazine [From Phenergan] AdvReac Other Verified 05/19/22 04:19 tramadol AdvReac Vomiting Verified 05/19/22 04:19 Social History Smoking Status: Never smoker ROS ROS ED Constitutional Constitutional ED: Denies chills or fever(s) ENT ENT ED: Denies sore throat Cardiovascular Cardiovascular: Denies chest pain Respiratory/Chest Respiratory/Chest: Denies cough or dyspnea Gastrointestinal Gastrointestinal: Reports abdominal pain; Denies diarrhea, nausea or vomiting Genitourinary Genitourinary ED: Reports dysuria, urinary frequency and other Details: Patient denies concern for she also denies vaginal bleeding or discharge ; Denies hematuria Musculoskeletal Musculoskeletal: Denies back pain or myalgias Integumentary Denies rash Neurologic Neurologic: Denies headache(s) Hematologic/Lymphatic Hematologic/Lymphatic: Denies easy bleeding or easy bruising EXAM Physical Exam Const Vital Signs: 05/19/22 04:17 05/19/22 04:19 05/19/22 05:24 Temperature 97.8 F 98.7 F Temperature Source Oral Temporal Pulse Rate 101 H 80 Respiratory Rate 14 17 Blood Pressure 111/74 132/74 H Blood Pressure Mean 86 93 Pulse Ox 97 97 Oxygen Delivery Method Room Air Room Air Positive well nourished and well developed General Appearance ED: well developed Eyes PERRL and EOMs intact bilaterally Neck supple Resp normal respiratory effort and clear to auscultation bilaterally Cardio regular rate and regular rhythm GI non-distended GI Narrative: Mild pain with palpation in the suprapubic region without voluntary guarding or rigidity Auscultation: normoactive bowel sounds Palpation: soft Back/Spine no CVA tenderness Extremity normal to inspection Neuro oriented x3 and CN's II-XII intact bilaterally Sensorium / Orientation: alert Psych mental status grossly normal Skin no rashes or lesions noted MDM MDM MDM Narrative Medical decision making narrative: Patient presented to the ER afebrile with no CVA pain and history of present illness most consistent with UTI. She had no concern for or STDs and therefore do not feel there is a need for genital exam or testing. Patient did give a urine sample but there was not enough to test both UA and urine culture. As her symptoms are most consistent with an acute UTI I will send the urine for culture and start treatment at this time. However as she does not have physical exam or vital sign changes to suggest urosepsis I do not feel there is need for further work-up and patient is otherwise safe for discharge. Discharge Plan Triage Chief Complaint: Complaint ED Provider: Deng Montero Dx/Rx/DC Orders Clinical Impression: UTI (urinary tract infection) Instructions: UTIs Women Prescriptions: New sulfamethoxazole-trimethoprim [Bactrim DS] 800-160 mg tablet 1 tab PO BID 7 Days Qty: 14 0RF phenazopyridine [Pyridium] 200 mg tablet 200 mg PO TID 2 Days Qty: 6 0RF No Action prednisone 10 mg tablet 10 mg PO DAILY Qty: 30 0RF Rx Instructions: 4 tablets daily for 3 days, then 3 tablets daily for 3 days, then 2 tablets daily for 3 days, then 1 tablet daily for 3 days azithromycin 250 mg tablet 250 mg PO QDAY Qty: 6 0RF Rx Instructions: 2 tablets today, then 1 tablet daily on days 2 through 5 desonide 0.05 % cream 1 applic topical TID PRN (Reason: itching) Qty: 60 0RF Primary Care Provider: Care Physician,No Primary Referrals: Sandra Frey MD [Med Staff - Railroad Car Cleaner] - Care Physician,No Primary [Primary Care Provider] - Disposition Disposition: Home, Self Care Discharge Date/Time: 05/19/22 05:26
[2022-05-19] MEDS: Phenazopyridine 95 MG Tablet 190 MG PO (05:22)
[2022-05-19] MEDS: Smz/Tmp Ds Tablet 1 TABLET PO (05:22)
[2022-05-19 05:24] VITALS: BP 132/74; PULSE 80; RESP 17; TEMP 37.1; O2SAT 97
== END 2022-05-19 05:26 | disposition home or self-care (01) ==
PROVIDERS: Emergency Provider Emergency Medicine; Visit Provider Emergency Medicine
DX: N39.0 Urinary tract infection, site not specified (principal); Z87.440 Personal history of urinary (tract) infections; R35.0 Frequency of micturition; R39.15 Urgency of urination; R30.0 Dysuria
CPT/HCPCS: 87077; 87086; 87088; 87186; 99283

== ENCOUNTER → 2022-09-16 | Outpatient (CLI) | payer MEDICAID, SELFPAY ==
[2022-09-16 10:10] LABS: Absolute Lymphocyte Count 1.15 X10^3/uL (0.83-4.51); Absolute Neutrophil Count 2.8 X10^3/uL (2.0-7.7); Basophil# 0.03 X10^3/uL; Basophil% 0.6 % (0-1); Eosinophil# 0.22 X10^3/uL; Eosinophils% 4.7 % (0-5); Hemoglobin 13.8 g/dL (12.0-15.0); Lymphocyte # 1.15 X10^3/ul (0.83-4.51); Lymphocyte % 24.4 % (19-41); Mean Corp Hgb Conc 32.1 g/dL (32-36); Mean Corpuscular Hgb 28.7 pg (27.0-32.0); Mean Corpuscular Volume 89.4 fL (81-99); Mean Platelet Vol. 10.1 fl (6.2-12.0); Monocyte# 0.46 X10^3/uL; Monocyte% 9.8 % (0-10); NRBC Flagged by Analyzer 0 % (0-5); Neutrophil # 2.83 X10^3/uL (2.7-7.7); Neutrophil % 60.1 % (47-70); Platelet Count 243 K/mm3 (150-450); RBC Distribution Width CV 13.6 % (11.6-14.6); Red Blood Count 4.81 M/mm3 (4.2-5.4); White Blood Count 4.7 K/mm3 (4.4-11.0)
[2022-09-16 10:55] LABS: ALB/GLOB Ratio 0.9 RATIO (0.9-2.4); AST(SGOT) 21 U/L (15-37); Alanine Aminotransfer ALT/SGPT 36 U/L (13-56); Albumin, Serum 3.3 g/dL (3.2-5.0); Alkaline Phosphatase 78 U/L (45-117); Anion Gap 4 (5-15); BUN 15 mg/dL (7-18); BUN/Creat Ratio 18.1 RATIO (10-20); Calcium,Total 9.2 mg/dL (8.5-10.1); Chloride 108 mmol/L (98-107); Creatinine, Serum 0.83 mg/dL (0.55-1.02); EST Glomerular Filtration Rate 82 mL/min (>60); Est Glom Filt Rate - Afr Amer 99 mL/min (>60); Globulin 3.8 g/dL (2.2-4.2); Glucose 73 mg/dL (74-106); Potassium 4.2 mmol/L (3.5-5.1); Protein, Total 7.1 g/dL (6.4-8.2); Sodium Level 138 mmol/L (136-145); T4 Free Direct 0.82 ng/dL (0.76-1.46); Thyroid Stim Hormone (TSH) 1.13 uIU/mL (0.358-3.74)
[2022-09-16 12:26] LABS: HIV - WCH Non-Reactive (Nonreactive); Hepatitis B Surface Antibody Reactive; Hepatitis B Surface Antigen Non-Reactive (Nonreactive); Hepatitis C Antibody Non-Reactive (Nonreactive)
[2022-09-17 19:07] LABS: HCV Quant. RNA PCR HCV Not Detected IU/mL (.)
[2022-09-18 09:39] LABS: Hepatitis A AB, Total Negative (Negative)
== END | disposition home or self-care (01) ==
PROVIDERS: Referring Provider Registered Nurse; Visit Provider Registered Nurse
DX: F11.20 Opioid dependence, uncomplicated (principal); F15.20 Other stimulant dependence, uncomplicated
CPT/HCPCS: 36415; 80053; 84439; 84443; 85025; 86703; 86706; 86708; 86803; 87340; 87522

== ENCOUNTER 2023-03-05 00:26 | Emergency (ER) | payer SELFPAY ==
[2023-03-05] VITALS (7 sets, daily range): BP systolic 117–140; BP diastolic 61–77; PULSE 72–82; RESP 14–20; TEMP 36.7; O2SAT 97–100; BMI 28.6
--- NOTE | 2023-03-05 00:52 | EKG12_ITS ---
Test Reason : OVERDOSE Blood Pressure : / mmHG Vent. Rate : 071 BPM Atrial Rate : 071 BPM P-R Int : 112 ms QRS Dur : 088 ms QT Int : 382 ms P-R-T Axes : -13 -11 -04 degrees QTc Int : 415 ms Normal sinus rhythm Septal infarct (cited on or before 14-SEP-2018) Abnormal ECG Confirmed by ANTHONY ESPARZA, PERLA ([id number]), head refrigeration engineer JUAN JOSÉ WINTER ([id number]) on 03/10/2023 2:08:54 PM Referred By: GAUDENCIO Confirmed By:ANNETTE CRUZ MD
--- NOTE | 2023-03-05 00:53 | EDS_ITS ---
HPI History of Present Illness Chief Complaint: Overdose Informant: EMS Narrative Narrative: Patient presents after suspected overdose on fentanyl. She evidently has a history of polypharmacy abuse. She was essentially unresponsive but woke up with Narcan. She did take 2 doses. She has had nausea vomiting and diarrhea after that. Patient really does not tell me anything. History is very limited at this time. I found out from the nurse who had talked directly to EMS that the patient actually was Narcan prior to their arrival by the family if she was found unresponsive. She evidently had not been using opioids for a while but then started using again. [facility] Medical History Anxiety Bilateral lower extremity edema Cellulitis of right foot Depression Substance abuse Home Medications azithromycin 250 mg tablet 250 mg PO QDAY #6 tabs 01/10/22 [Rx Last Taken Unk nown] prednisone 10 mg tablet 10 mg PO DAILY #30 tabs 01/10/22 [Rx Last Taken Unknown] desonide 0.05 % topical cream 1 applic topical TID PRN itching #60 grams 01/11/22 [Rx Last Taken Unknown] phenazopyridine 200 mg tablet (Pyridium) 200 mg PO TID 2 days #6 tabs 05/19/22 [Rx Last Taken Unknown] sulfamethoxazole 800 mg-trimethoprim 160 mg tablet (Bactrim DS) 1 tab PO BID 7 days #14 tabs 05/19/22 [Rx Last Taken Unknown] Allergy/AdvReac Type Severity Reaction Status Date / Time ketorolac [From Toradol] Allergy Itching Verified 03/05/23 00:27 cephalexin monohydrate AdvReac Vomiting Verified 03/05/23 00:27 [From Keflex] cyclobenzaprine HCl AdvReac Pain in Verified 03/05/23 00:27 [From Flexeril] joints Penicillins AdvReac Unknown Verified 03/05/23 00:27 promethazine [From Phenergan] AdvReac Other Verified 03/05/23 00:27 tramadol AdvReac Vomiting Verified 03/05/23 00:27 Social History Smoking Status: Former smoker ROS ROS ED ROS Narrative Unable to obtain beyond the information below which is nausea vomiting and diarrhea Gastrointestinal Gastrointestinal: Reports abdominal pain, nausea and vomiting EXAM Physical Exam Narrative Exam Narrative: CONSTITUTIONAL: Patient is nontoxic in appearance. She is lying quietly in bed. She responds to questions with mumbling. HEENT: No notable trauma. No bruising contusions or abrasions. Mucous membranes moist. No sinus tenderness. No indication of pain with swallowing. EYES: No conjunctival injection. No proptosis. Pulls are at about 2-1/2 mm now and are reactive. NECK:No JVD. No stridor. CARDIOVASCULAR: Regular rate. Regular rhythm. No notable murmur. No JVD. RESPIRATORY: No respiratory distress. Breathing is unlabored. No wheezes. No rhonchi. No rales. No pain with a deep breath. No chest wall tenderness. Breathing is about 15-16 times a minute on the monitor. Saturations are 100% on room air showing no hypoxia at this time. GASTROINTESTINAL: Not distended. Bowel sounds are normal. No tenderness. No guarding. No rebound. No palpable mass. No bruit is heard. She did have vomiting and diarrhea when she came in but no blood was seen. GENITOURINARY: No tenderness over the bladder. No CVA tenderness. MUSCULOSKELETAL: Atraumatic. No peripheral edema. Her diagnosis list shows bilateral lower extremity edema but it is not present now. No cord. No tenderness along the deep venous system. No asymmetry. No distended veins. NEUROLOGICAL: Patient is sleeping. She wakes up with voice but just mumbles. She is not oriented beyond name. But there is no focal deficit. SKIN: No noted rashes. No diaphoresis. PSYCHIATRIC: Patient is sleepy. Const Vital Signs: 03/05/23 00:28 03/05/23 01:08 03/05/23 01:45 Temperature 98.0 F Temperature Source Temporal Pulse Rate 73 72 75 Respiratory Rate 16 20 H 16 Blood Pressure 124/77 H 135/75 H 137/74 H Blood Pressure Mean 92 95 95 Pulse Ox 100 99 99 Oxygen Delivery Method Room Air Room Air 03/05/23 02:19 03/05/23 03:59 03/05/23 05:43 Temperature Temperature Source Pulse Rate 82 72 72 Respiratory Rate 17 14 18 Blood Pressure 140/77 H 123/64 H 117/61 Blood Pressure Mean 98 83 79 Pulse Ox 98 97 97 Oxygen Delivery Method Room Air Room Air MDM MDM MDM Narrative Medical decision making narrative: Patient CBC shows no marked abnormalities. Patient's electrolytes showed some mildly low potassium but this should self correct. Her serum is negative. Serum alcohol is negative. Urine toxicology is pending. 02:00 patient will be placed in observation here. Her vitals are stable on the monitor but she is really not alert and awake enough to be able to go home safely. We will continue to observe and watch her throughout the night. Certainly if she needs further Narcan she will be provided that. But at this time her saturations, blood pressure, respiratory rate, heart rate are all within normal limits. 03:20 patient is resting quietly with stable vitals normal saturations and respiratory rate. Has been rechecked here. At about 5:30 in the morning she is starting to wake up and wondering how long she is going to be here. She really does not have any complaints at this time. Urinalysis for toxicology has been sent off but is pending. Patient states she remembers what happens last night. She remembers talking to her family that they gave her Narcan twice. She remembers vomiting and having diarrhea. She states this was the worst ever precipitated withdrawals she has had. But she is feeling better now. She is actually finishing up a turkey sandwich here. She has had some coke. I think we can get her home. She has no complaints at this time. Lab Data Attestation: I reviewed the patient's lab results. Labs: Laboratory Results - last 24 hr 03/05/23 03/05/23 01:05 01:54 WBC 6.4 RBC 4.61 Hgb 12.4 Hct 39.6 MCV 85.9 MCH 26.9 L MCHC 31.3 L RDW Std Deviation 42.2 RDW Coeff of Qian 13.5 Plt Count 198 MPV 10.7 Immature Gran % (Auto) 0.300 Neut % (Auto) 70.0 Lymph % (Auto) 17.3 L Marion % (Auto) 7.2 Eos % (Auto) 4.7 Baso % (Auto) 0.5 Absolute Neuts (auto) 4.5 Absolute Lymphs (auto) 1.11 Nucleated RBC % 0 Sodium 139 Potassium 3.1 L Chloride 105 Carbon Dioxide 30.0 Anion Gap 4 L BUN 9 Creatinine 0.77 Estim Creat Clear Calc 78.35 Est GFR (MDRD) Af Amer 107 Est GFR (MDRD) Non-Af 89 BUN/Creatinine Ratio 11.6 Glucose 80 Calcium 8.6 Serum , Qual NEGATIVE Ur Drug Screen Comment Ethyl Alcohol < 3.0 EKG Initial EKG: Comments: My independent interpretation of the patient's EKG shows a normal sinus rhythm with overall rate of 71. No ectopy. No acute ST elevation or depression. Mildly poor anterior R wave. AL interval, QRS duration and QTc are normal Discharge Plan Triage Chief Complaint: Overdose ED Provider: Erwin Sykes Dx/Rx/DC Orders Clinical Impression: History of drug abuse, Opioid overdose, Nausea vomiting and diarrhea Instructions: ED Opiate Abuse Prescriptions: No Action prednisone 10 mg tablet 10 mg PO DAILY Qty: 30 0RF Rx Instructions: 4 tablets daily for 3 days, then 3 tablets daily for 3 days, then 2 tablets daily for 3 days, then 1 tablet daily for 3 days azithromycin 250 mg tablet 250 mg PO QDAY Qty: 6 0RF Rx Instructions: 2 tablets today, then 1 tablet daily on days 2 through 5 desonide 0.05 % cream 1 applic topical TID PRN (Reason: itching) Qty: 60 0RF sulfamethoxazole-trimethoprim [Bactrim DS] 800-160 mg tablet 1 tab PO BID 7 Days Qty: 14 0RF phenazopyridine [Pyridium] 200 mg tablet 200 mg PO TID 2 Days Qty: 6 0RF Primary Care Provider: Care Physician,No Primary Referrals: Chastity Shearer DO [Med Staff - Disability Insurance Claim Examiner] - As Needed Care Physician,No Primary [Primary Care Provider] - Disposition Disposition: Home, Self Care
[2023-03-05] MEDS: Ondansetron 4 MG/2 ML Vial IV (01:08)
[2023-03-05] MEDS: 0.9% Normal Saline (1000mL) 1,000 ML 1000 ML IV (01:08)
[2023-03-05 01:15] LABS: Absolute Lymphocyte Count 1.11 X10^3/uL (0.83-4.51); Absolute Neutrophil Count 4.5 X10^3/uL (2.0-7.7); Basophil# 0.03 X10^3/uL; Basophil% 0.5 % (0-1); Eosinophils% 4.7 % (0-5); Hematocrit 39.6 % (37-47); Hemoglobin 12.4 g/dL (12.0-15.0); Lymphocyte # 1.11 X10^3/ul (0.83-4.51); Lymphocyte % 17.3 % (19-41); Mean Corp Hgb Conc 31.3 g/dL (32-36); Mean Corpuscular Hgb 26.9 pg (27.0-32.0); Mean Corpuscular Volume 85.9 fL (81-99); Mean Platelet Vol. 10.7 fl (6.2-12.0); Monocyte# 0.46 X10^3/uL; Monocyte% 7.2 % (0-10); NRBC Flagged by Analyzer 0 % (0-5); Platelet Count 198 K/mm3 (150-450); RBC Distribution Width CV 13.5 % (11.6-14.6); RBC Distribution Width SD 42.2 fl (35.1-43.9); Red Blood Count 4.61 M/mm3 (4.2-5.4); White Blood Count 6.4 K/mm3 (4.4-11.0)
[2023-03-05 01:27] LABS: Internal QC Validated? YES +Cl - CLEAR BKGD; Pregnancy, Serum, hCG Quali. NEGATIVE Negative
[2023-03-05 01:30] LABS: Alcohol, Blood (Medical)-Serum < 3.0 mg/dL
[2023-03-05 01:33] LABS: Anion Gap 4 (5-15); BUN 9 mg/dL (7-18); BUN/Creat Ratio 11.6 RATIO (10-20); Calcium,Total 8.6 mg/dL (8.5-10.1); Chloride 105 mmol/L (98-107); Creatinine, Serum 0.77 mg/dL (0.55-1.02); EST Glomerular Filtration Rate 89 mL/min (>60); Est Glom Filt Rate - Afr Amer 107 mL/min (>60); Estimated Creatinine Clearance 78.35 ml/min; Glucose 80 mg/dL (74-106); Potassium 3.1 mmol/L (3.5-5.1); Sodium Level 139 mmol/L (136-145)
[2023-03-05 06:37] LABS: Amphetamine Urine VISTA POSITIVE (<1000 ng/mL); Barbiturate Urine VISTA NEGATIVE (< 200 ng/mL); Benzodiazepine Urine VISTA NEGATIVE (< 200 ng/mL); Cocaine Urine VISTA POSITIVE (< 300 ng/mL); Ecstacy Urine VISTA NEGATIVE (< 500 ng/mL); Methadone Urine VISTA NEGATIVE (< 300 ng/mL); PCP Urine VISTA NEGATIVE (< 25 ng/mL); THC Urine VISTA NEGATIVE (< 50 ng/mL); Vista UDS pH Range 6
== END 2023-03-05 08:22 | disposition home or self-care (01) ==
PROVIDERS: Emergency Provider Emergency Medicine; Visit Provider Emergency Medicine
DX: T40.2X1A Poisoning by other opioids, accidental (unintentional), initial encounter (principal); R19.7 Diarrhea, unspecified; R11.2 Nausea with vomiting, unspecified; F32.A Depression, unspecified; F41.9 Anxiety disorder, unspecified; Z79.899 Other long term (current) drug therapy; Z87.891 Personal history of nicotine dependence
CPT/HCPCS: 80048; 80307; 82077; 84703; 85025; 93005; 96361; 96374; 99285; A4216; J2405

== ENCOUNTER 2023-03-24 20:34 | Observation (INO) | payer MEDICAID, SELFPAY ==
[2023-03-24 20:35] VITALS: BP 152/99; PULSE 94; RESP 18; TEMP 36.8; O2SAT 100; BMI 28.6
--- NOTE | 2023-03-24 20:47 | EX.ED.SAOD ---
HPI History of Present Illness Chief Complaint: Substance Abuse Detail of Chief Complaint: Fentanyl abuse Informant: patient Narrative Narrative: Patient presents for detox from fentanyl. She went to [facility] today to join their detox/rehab program. She admits to being a addict for the past 12 years. She states that she will use on and off but has been using more regularly since November. Last use of fentanyl was yesterday. She states she will occasionally use meth as well. When she went to the [facility] program today they did a urine tox screen that was positive for opiates. They felt she needed to be detoxed in the hospital for safety reasons before they would be able to help her. Patient also reports a rash on her chest that she has noted for about a month. She states it does itch and is only slightly spreading. [facility] Medical History Anxiety Bilateral lower extremity edema Cellulitis of right foot Depression Substance abuse Home Medications azithromycin 250 mg tablet 250 mg PO QDAY #6 tabs 01/10/22 [Rx Last Taken Unknown] prednisone 10 mg tablet 10 mg PO DAILY #30 tabs 01/10/22 [Rx Last Taken Unknown] desonide 0.05 % topical cream 1 applic topical TID PRN itching #60 grams 01/11/22 [Rx Last Taken Unknown] phenazopyridine 200 mg tablet (Pyridium) 200 mg PO TID 2 days #6 tabs 05/19/22 [Rx Last Taken Unknown] sulfamethoxazole 800 mg-trimethoprim 160 mg tablet (Bactrim DS) 1 tab PO BID 7 days #14 tabs 05/19/22 [Rx Last Taken Unknown] Allergy/AdvReac Type Severity Reaction Status Date / Time ketorolac [From Toradol] Allergy Itching Verified 03/24/23 20:37 cephalexin monohydrate AdvReac Vomiting Verified 03/24/23 20:37 [From Keflex] cyclobenzaprine HCl AdvReac Pain in Verified 03/24/23 20:37 [From Flexeril] joints Penicillins AdvReac Unknown Verified 03/24/23 20:37 promethazine [From Phenergan] AdvReac Other Verified 03/24/23 20:37 tramadol AdvReac Vomiting Verified 03/24/23 20:37 Social History Smoking Status: Current some day smoker tobacco type: cigarettes and e-cigarettes ROS ROS ED Constitutional Constitutional ED: Denies chills or fever(s) Eyes Eyes: Denies discharge from eye(s) ENT ENT ED: Denies discharge from eye(s), rhinorrhea or sore throat Cardiovascular Cardiovascular: Denies chest pain Respiratory/Chest Respiratory/Chest: Denies cough or dyspnea Gastrointestinal Gastrointestinal: Denies abdominal pain, nausea or vomiting Genitourinary Genitourinary ED: Denies dysuria Musculoskeletal Musculoskeletal: Denies back pain or extremity pain Integumentary Reports rash; Denies Abrasions Neurologic Neurologic: Denies headache(s) or weakness Psychiatric Psychiatric: Denies anxiety or depression Allergic/Immunologic Allergic/Immunologic ED: Denies lip swelling or urticaria EXAM Physical Exam Const Vital Signs: 03/24/23 20:35 Temperature 98.3 F Temperature Source Temporal Pulse Rate 94 Respiratory Rate 18 Blood Pressure 152/99 H Blood Pressure Mean 116 Pulse Ox 100 Oxygen Delivery Method Room Air Positive well nourished and well developed General Appearance ED: well developed HEENT Reports moist mucous membranes Eyes EOMs intact bilaterally Chest Wall Chest Narrative: Erythematous slightly thickened skin noted on the right upper chest. No vesicles noted. Resp normal respiratory effort and clear to auscultation bilaterally Cardio regular rate and regular rhythm GI soft to palpation and non-tender Neuro oriented x3 and no sensory deficits noted Sensorium / Orientation: alert Motor Exam: strength 5/5 throughout Psych Mood & Affect: tearful Skin Skin Narrative: Erythematous rash noted on chest as above. MDM MDM MDM Narrative Medical decision making narrative: Work-up for addiction medicine undertaken. Hydrocortisone cream ordered for the rash to her chest. History & Record Review Discussion w/independent historian: Patient Additional record(s) reviewed:: Prior ED visit and Prior labs Lab Data Attestation: I reviewed the patient's lab results. Labs: Laboratory Results - last 24 hr 03/24/23 20:51 WBC 6.2 RBC 5.25 Hgb 14.3 Hct 45.8 MCV 87.2 MCH 27.2 MCHC 31.2 L RDW Std Deviation 41.6 RDW Coeff of Qian 13.1 Plt Count 263 MPV 10.3 Immature Gran % (Auto) 0.300 Neut % (Auto) 58.6 Lymph % (Auto) 25.4 [place] % (Auto) 7.7 Eos % (Auto) 7.2 H Baso % (Auto) 0.8 Absolute Neuts (auto) 3.7 Absolute Lymphs (auto) 1.58 Nucleated RBC % 0 Sodium 136 Potassium 3.3 L Chloride 101 Carbon Dioxide 29.0 Anion Gap 6 BUN 7 Creatinine 0.68 Estim Creat Clear Calc 88.72 Est GFR (MDRD) Af Amer 124 Est GFR (MDRD) Non-Af 103 BUN/Creatinine Ratio 10.3 Glucose 107 H Calcium 8.7 Total Bilirubin 0.20 AST 18 ALT 30 Alkaline Phosphatase 78 Total Protein 7.2 Albumin 3.7 Globulin 3.5 Albumin/Globulin Ratio 1.1 Serum , Qual NEGATIVE Urine Opiates Screen NEGATIVE Urine Methadone Screen NEGATIVE Ur Barbiturates Screen NEGATIVE Ur Phencyclidine Scrn NEGATIVE Ur Amphetamines Screen POSITIVE H MDMA (Ecstasy) Screen NEGATIVE U Benzodiazepines Scrn NEGATIVE Urine Cocaine Screen NEGATIVE U Cannabinoids Screen NEGATIVE Ur Drug Screen Comment Ethyl Alcohol < 3.0 Treatment and Re-Evaluation Narrative: CBC was normal white count at 6.2 with a hemoglobin of 14.3. Differential unremarkable. Chemistry studies significant only for slightly low potassium at 3.3. Renal function is normal. test is negative. Urine tox screen is positive for amphetamines. EtOH is negative. I will speak with hospitalist regarding admission to the detox program. Discharge Plan Triage Chief Complaint: Substance Abuse ED Provider: Carli Collado Dx/Rx/DC Orders Clinical Impression: Desire for detoxification Prescriptions: No Action prednisone 10 mg tablet 10 mg PO DAILY Qty: 30 0RF Rx Instructions: 4 tablets daily for 3 days, then 3 tablets daily for 3 days, then 2 tablets daily for 3 days, then 1 tablet daily for 3 days azithromycin 250 mg tablet 250 mg PO QDAY Qty: 6 0RF Rx Instructions: 2 tablets today, then 1 tablet daily on days 2 through 5 desonide 0.05 % cream 1 applic topical TID PRN (Reason: itching) Qty: 60 0RF sulfamethoxazole-trimethoprim [Bactrim DS] 800-160 mg tablet 1 tab PO BID 7 Days Qty: 14 0RF phenazopyridine [Pyridium] 200 mg tablet 200 mg PO TID 2 Days Qty: 6 0RF Primary Care Provider: Care Physician,No Primary Referrals: Care Physician,No Primary [Primary Care Provider] - Disposition Disposition: Acute Care Hospital [facility]
[2023-03-24 21:08] LABS: Absolute Lymphocyte Count 1.58 X10^3/uL (0.83-4.51); Absolute Neutrophil Count 3.7 X10^3/uL (2.0-7.7); Basophil# 0.05 X10^3/uL; Basophil% 0.8 % (0-1); Eosinophil# 0.45 X10^3/uL; Eosinophils% 7.2 % (0-5); Hematocrit 45.8 % (37-47); Hemoglobin 14.3 g/dL (12.0-15.0); Lymphocyte # 1.58 X10^3/ul (0.83-4.51); Lymphocyte % 25.4 % (19-41); Mean Corp Hgb Conc 31.2 g/dL (32-36); Mean Corpuscular Hgb 27.2 pg (27.0-32.0); Mean Corpuscular Volume 87.2 fL (81-99); Mean Platelet Vol. 10.3 fl (6.2-12.0); Monocyte# 0.48 X10^3/uL; Monocyte% 7.7 % (0-10); NRBC Flagged by Analyzer 0 % (0-5); Neutrophil # 3.65 X10^3/uL (2.7-7.7); Neutrophil % 58.6 % (47-70); Platelet Count 263 K/mm3 (150-450); RBC Distribution Width CV 13.1 % (11.6-14.6); RBC Distribution Width SD 41.6 fl (35.1-43.9); Red Blood Count 5.25 M/mm3 (4.2-5.4); White Blood Count 6.2 K/mm3 (4.4-11.0)
[2023-03-24] MEDS: Hydrocortisone 2.5% Crm 1 APPLIC TOPICAL (21:16)
[2023-03-24 21:23] LABS: Alcohol, Blood (Medical)-Serum < 3.0 mg/dL; Internal QC Validated? YES +Cl - CLEAR BKGD; Pregnancy, Serum, hCG Quali. NEGATIVE Negative
[2023-03-24 21:27] LABS: ALB/GLOB Ratio 1.1 RATIO (0.9-2.4); AST(SGOT) 18 U/L (15-37); Alanine Aminotransfer ALT/SGPT 30 U/L (13-56); Albumin, Serum 3.7 g/dL (3.2-5.0); Alkaline Phosphatase 78 U/L (45-117); Anion Gap 6 (5-15); BUN 7 mg/dL (7-18); BUN/Creat Ratio 10.3 RATIO (10-20); Calcium,Total 8.7 mg/dL (8.5-10.1); Chloride 101 mmol/L (98-107); Creatinine, Serum 0.68 mg/dL (0.55-1.02); EST Glomerular Filtration Rate 103 mL/min (>60); Est Glom Filt Rate - Afr Amer 124 mL/min (>60); Estimated Creatinine Clearance 88.72 ml/min; Globulin 3.5 g/dL (2.2-4.2); Glucose 107 mg/dL (74-106); Potassium 3.3 mmol/L (3.5-5.1); Protein, Total 7.2 g/dL (6.4-8.2); Sodium Level 136 mmol/L (136-145)
[2023-03-24 21:31] LABS: Amphetamine Urine VISTA POSITIVE (<1000 ng/mL); Barbiturate Urine VISTA NEGATIVE (< 200 ng/mL); Benzodiazepine Urine VISTA NEGATIVE (< 200 ng/mL); Cocaine Urine VISTA NEGATIVE (< 300 ng/mL); Ecstacy Urine VISTA NEGATIVE (< 500 ng/mL); Methadone Urine VISTA NEGATIVE (< 300 ng/mL); PCP Urine VISTA NEGATIVE (< 25 ng/mL); THC Urine VISTA NEGATIVE (< 50 ng/mL); Vista UDS pH Range 7
[2023-03-24 21:35] VITALS: BP 132/65; PULSE 89; RESP 13; O2SAT 98
--- NOTE | 2023-03-24 21:50 | CM.ED ---
Social Work SW met with patient and introduced self and role as [facility] SW. Patient was tearful and seated on hospital bed but agreeable to speak with SW. Patient voiced frustration about having to engage in detox program before she can participate in [facility] residential program. Patient reviewed substance use and assistance history. Patient explained she was informed she had to detox due to the substances that are currently in her system. Patient was tearful but also reports understanding that it's a policy for patient's safety. SW provided emotional support and briefly reviewed RAMP rules. Patient voiced understanding and inquired about her ability to keep her blanket and pillow, explaining they helped to provide comfort. SW explained it was unlikely as personal items are locked up when a patient is participating in [facility], however, SW was agreeable to inquire. SW then inquired about patient's insurance as patient is currently listed as self pay. Patient explained she previously had Medicaid but briefly lost it while she was employed. [facility] staff has been assisting the patient in reapplying and reports no assistance is needed. 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 SW updated patient. Patient is frustrated but voiced understanding. Patient reports her plan is to return to [facility] for their residential program once she is medically ready to d/c. Treatment Navigator updated. Plan: MICK GARCES, DEMIAN
--- NOTE | 2023-03-24 22:11 | HP.PCM.HOS_ITS ---
HPI - General General Date of Admission: 03/24/23 Date of Service: 03/24/23 Chief Complaint: Drug abuse HPI Narrative RYAN BAEZA, is a 38 F with a significant history of tobacco abuse; methamphetamine abuse and fentanyl abuse who presents to the emergency department because of detoxification. Of note patient has been using methamphetamine and fentanyl on and off for about 12 years. She has not been to any formal detox program. Between fentanyl and methamphetamine she has been using a total of about $20 or less when she uses. She uses both methamphetamine and fentanyl about once in a week. She does not mix it together but uses typically 1 just after the other. Last time she used was about 2 days ago. Reportedly she went to [facility] for rehabilitation and because her urine toxicology screen came back positive for meth and opioids she was sent to the emergency department for admission into the [facility] program for in-hospital detox first as reportedly [facility] does not want to take any chance. She denies any withdrawal symptoms. Regarding tobacco abuse occasionally patient vapes but this she does very infreq uently. [facility] Medical History Anxiety Bilateral lower extremity edema Cellulitis of right foot Depression Substance abuse Allergy/AdvReac Type Severity Reaction Status Date / Time ketorolac [From Toradol] Allergy Itching Verified 03/24/23 20:37 cephalexin monohydrate AdvReac Vomiting Verified 03/24/23 20:37 [From Keflex] cyclobenzaprine HCl AdvReac Pain in Verified 03/24/23 20:37 [From Flexeril] joints Penicillins AdvReac Unknown Verified 03/24/23 20:37 promethazine [From Phenergan] AdvReac Other Verified 03/24/23 20:37 tramadol AdvReac Vomiting Verified 03/24/23 20:37 Family History Other Arthritis Cancer Diabetes Lung cancer Surgical History H/O myringotomy H/O tubal ligation History of tonsillectomy Social History Smoking Status: Current some day smoker tobacco type: cigarettes and e- cigarettes ROS ROS Narrative Pertinent positives and pertinent negatives as noted in HPI. All other systems were reviewed and are negative Vital Signs Vital Signs Vital Signs: 03/24/23 20:35 03/24/23 21:35 Temperature 98.3 F Temperature Source Temporal Pulse Rate 94 89 Respiratory Rate 18 13 Blood Pressure 152/99 H 132/65 H Blood Pressure Mean 116 87 Pulse Ox 100 98 Oxygen Delivery Method Room Air Room Air Weight Weight: 71 kg Body Mass Index (BMI) 28.6 Physical Exam Narrative Physical exam: General: Well-nourished, well-developed. Head: Normocephalic, atraumatic, no tenderness Eyes: Vision is grossly intact. EOMI ENT: Poor dentition, no trauma, moist mucous membranes, no rhinorrhea Neck: Nontender, No thyromegaly. CVS: Regular rate and rhythm. S1-S2 present. No murmur, gallop or rub. Respiratory : Erythematous rash on right upper chest. Clear to auscultation bilaterally, chest wall nontender Abdomen: Soft, nontender, nondistended, normal bowel sounds, no masses : Deferred Back: Nontender, no CVA tenderness, no midline spinal tenderness, deformities, step-offs Extremities: Nontender full range of motion, no trauma Skin: Normal color, no trauma, abrasions Neuro: Alert, oriented, cranial nerves II through XII grossly intact. Psychiatry: Normal mood. Normal affect. Not depressed. Not anxious. Results Lab / Micro Data 03/24/23 20:51 03/24/23 20:51 Labs: Laboratory Results - last 24 hr 03/24/23 20:51: WBC 6.2, RBC 5.25, Hgb 14.3, Hct 45.8, MCV 87.2, MCH 27.2, MCHC 31.2 L, RDW Std Deviation 41.6, RDW Coeff of Qian 13.1, Plt Count 263, MPV 10.3, Immature Gran % (Auto) 0.300, Neut % (Auto) 58.6, Lymph % (Auto) 25.4, [place] % (Auto) 7.7, Eos % (Auto) 7.2 H, Baso % (Auto) 0.8, Absolute Neuts (auto) 3.7, Absolute Lymphs (auto) 1.58, Nucleated RBC % 0, Sodium 136, Potassium 3.3 L, Chloride 101, Carbon Dioxide 29.0, Anion Gap 6, BUN 7, Creatinine 0.68, Estim Creat Clear Calc 88.72, Est GFR (MDRD) Af Amer 124, Est GFR (MDRD) Non-Af 103, BUN/Creatinine Ratio 10.3, Glucose 107 H, Calcium 8.7, Total Bilirubin 0.20, AST 18, ALT 30, Alkaline Phosphatase 78, Total Protein 7.2, Albumin 3.7, Globulin 3. 5, Albumin/Globulin Ratio 1.1, Serum , Qual NEGATIVE, Urine Opiates Screen NEGATIVE, Urine Methadone Screen NEGATIVE, Ur Barbiturates Screen NEGATIVE, Ur Phencyclidine Scrn NEGATIVE, Ur Amphetamines Screen POSITIVE H, MDMA (Ecstasy) Screen NEGATIVE, U Benzodiazepines Scrn NEGATIVE, Urine Cocaine Screen NEGATIVE, U Cannabinoids Screen NEGATIVE, Ur Drug Screen Comment , Ethyl Alcohol < 3.0 Assessment & Plan Assessment/Plan (1) Desire for detoxification: (2) Eczema: QUALIFIERS: Eczema type: unspecified Qualified Code(s): L30.9 - Dermatitis, unspecified (3) Mild tobacco abuse: (4) Methamphetamine abuse: PLAN: Plan Desire for opioid detoxification With patient pattern of use patient likely may not withdrawal. Subutex would therefore not be started at this time. Support medications: Gabapentin as needed; dicyclomine as needed; Vistaril as needed; methocarbamol as needed; clonidine as needed; Imodium as needed; trazodone as needed and Zofran as needed ordered. Monitor COWS and CINA score Case management consult. Mild Tobacco abuse Counseled Eczema Patient noted to have erythematous rash on right upper chest. Was handed hydrocortisone 2.5% by ED physician. Patient to use hydrocortisone cream as needed. Methamphetamine abuse Counseled. Doubt development of any withdrawal symptoms at this time. Meds to control somatic symptoms as in opioid detoxification plan above. DVT prophylaxis Low risk Encourage to ambulate Time spent Time spent in the patient's overall evaluation,decision-making process, review of diagnostic data, adjustment of management, discussion with other providers, nursing and ancillary staff involved in patient's care documentation, 45 minutes. Charges/Coding Visit Charges Inpatient E&M: 65283 Init Hosp L2
[2023-03-24 23:10] VITALS: BMI 28.0
[2023-03-24 23:20] VITALS: BP 126/73; PULSE 84; RESP 16; TEMP 36.7; O2SAT 100
[2023-03-25 06:44] VITALS: BP 95/60; PULSE 67; RESP 16; TEMP 36.5; O2SAT 100
[2023-03-25] MEDS: Hydrocortisone 2.5% Crm 1 APPLIC TOPICAL ×2 (07:34→20:28)
--- NOTE | 2023-03-25 09:45 | ADDICTION ---
This board writer met with PT to conduct ASAM, MSE, AUDIT, DUDIT assessments and to plan for d/c. PT A+Ox4 and participated actively. All assessments completed and placed in PT's chart. PT plans to f/u with [facility] at [facility] for follow-up in patient treatment services on . [facility] will transport to treatment.
[2023-03-25 10:00] VITALS: BP 117/76; PULSE 80; RESP 18; TEMP 37.2; O2SAT 98
[2023-03-25] MEDS: Potassium Chloride Oral Tablet 20 MEQ 40 MEQ PO (10:20)
--- NOTE | 2023-03-25 12:21 | PCM.PN.HOSP ---
Reason for Visit Reason for Visit: Diagnoses Other stimulant abuse, uncomplicated (03/24/23) Nicotine dependence, unspecified, uncomplicated (03/24/23) Dermatitis, unspecified (03/24/23) Subjective Subjective Patient denies any withdrawal symptoms and says she thinks she is wasting her time here doing nothing, has a slight rash on right upper chest that she finds the cream helpful for. Denies other complaints Objective Data Objective Data Vital Signs: Vital Signs Temp Pulse Resp BP Pulse Ox O2 Del Method 98.9 F 80 18 117/76 98 Room Air 03/25/23 10:00 03/25/23 10:00 03/25/23 10:00 03/25/23 10:00 03/25/23 10:00 03/25/23 10:00 Oxygen Delivery Method Room Air Weight: 69.5 kg Body Mass Index (BMI) 28.0 Intake & Output: Intake and Output for Last 24 Hours 03/23/23 03/24/23 03/25/23 23:59 23:59 23:59 Intake Total 300 / 300 Balance 300 / 300 Lab / Micro Data 03/24/23 20:51 03/24/23 20:51 Labs: Laboratory Results - last 24 hr 03/24/23 20:51: WBC 6.2, RBC 5.25, Hgb 14.3, Hct 45.8, MCV 87.2, MCH 27.2, MCHC 31.2 L, RDW Std Deviation 41.6, RDW Coeff of Qian 13.1, Plt Count 263, MPV 10.3, Immature Gran % (Auto) 0.300, Neut % (Auto) 58.6, Lymph % (Auto) 25.4, [place] % (Auto) 7.7, Eos % (Auto) 7.2 H, Baso % (Auto) 0.8, Absolute Neuts (auto) 3.7, Absolute Lymphs (auto) 1.58, Nucleated RBC % 0, Sodium 136, Potassium 3.3 L, Chloride 101, Carbon Dioxide 29.0, Anion Gap 6, BUN 7, Creatinine 0.68, Estim Creat Clear Calc 88.72, Est GFR (MDRD) Af Amer 124, Est GFR (MDRD) Non-Af 103, BUN/Creatinine Ratio 10.3, Glucose 107 H, Calcium 8.7, Total Bilirubin 0.20, AST 18, ALT 30, Alkaline Phosphatase 78, Total Protein 7.2, Albumin 3.7, Globulin 3.5, Albumin/Globulin Ratio 1.1, Serum , Qual NEGATIVE, Urine Opiates Screen NEGATIVE, Urine Methadone Screen NEGATIVE, Ur Barbiturates Screen NEGATIVE, Ur Phencyclidine Scrn NEGATIVE, Ur Amphetamines Screen POSITIVE H, MDMA (Ecstasy) Screen NEGATIVE, U Benzodiazepines Scrn NEGATIVE, Urine Cocaine Screen NEGATIVE, U Cannabinoids Screen NEGATIVE, Ur Drug Screen Comment , Ethyl Alcohol < 3.0 Physical Exam Narrative General: Alert, oriented, no apparent distress HEENT: Atraumatic, normocephalic Eyes: Anicteric, normal conjunctiva, extraocular movements grossly intact Neck: Supple Respiratory: Clear to auscultation bilaterally, normal respiratory effort Cardiovascular: Regular rate and rhythm GI: Soft, nontender, nondistended Extremities: No edema Musculoskeletal: Moving all extremities Neuro: No overt focal neurological deficits Skin: Slight erythematous rash on right upper chest Psych: Superficially cooperative Assessment & Plan Assessment/Plan (1) Desire for detoxification: (2) Eczema: QUALIFIERS: Eczema type: unspecified Qualified Code(s): L30.9 - Dermatitis, unspecified (3) Mild tobacco abuse: (4) Methamphetamine abuse: PLAN: Plan #Desire for opioid detoxification With patient pattern of use patient likely may not withdrawal. Subutex would therefore not be started at this time. Support medications: Gabapentin as needed; dicyclomine as needed; Vistaril as needed; methocarbamol as needed; clonidine as needed; Imodium as needed; trazodone as needed and Zofran as needed ordered. Monitor COWS and CINA score Case management consult. -03/25: Discussed with Lucila with [facility], patient has long history of substance use and minimizes use. There was concern yesterday at residential that she had used as she was nodding off during group which is partially why she was sent here. Continue to monitor. If patient not having clinically significant withdrawal tomorrow or is denying will consider DC #Mild Tobacco abuse Counseled #Eczema Patient noted to have erythematous rash on right upper chest. Was handed hydrocortisone 2.5% by ED physician. Patient to use hydrocortisone cream as needed. -03/25: Does feel the cream slightly helpful, continue supportive care Methamphetamine abuse Counseled. Doubt development of any withdrawal symptoms at this time. Meds to control somatic symptoms as in opioid detoxification plan above. DVT prophylaxis Low risk Encourage to ambulate Time spent Time spent in the patient's overall evaluation,decision-making process, review of diagnostic data, adjustment of management, discussion with other providers, nursing and ancillary staff involved in patient's care documentation, 30 minutes. Charges/Coding Visit Charges Inpatient E&M: 86941 Subs Hosp L1
[2023-03-25 14:17] VITALS: BP 106/61; PULSE 74; RESP 16; TEMP 36.6; O2SAT 94
[2023-03-25 20:22] VITALS: BP 117/81; PULSE 81; RESP 16; TEMP 36.9; O2SAT 100
[2023-03-26 03:13] VITALS: BP 104/63; PULSE 62; RESP 16; TEMP 36.3; O2SAT 100
[2023-03-26 07:21] LABS: Anion Gap 0 (5-15); BUN 10 mg/dL (7-18); BUN/Creat Ratio 14.2 RATIO (10-20); Calcium,Total 8.4 mg/dL (8.5-10.1); Chloride 106 mmol/L (98-107); EST Glomerular Filtration Rate 99 mL/min (>60); Est Glom Filt Rate - Afr Amer 120 mL/min (>60); Estimated Creatinine Clearance 86.18 ml/min; Glucose 94 mg/dL (74-106); Sodium Level 138 mmol/L (136-145)
[2023-03-26 09:31] VITALS: BP 107/62; PULSE 72; RESP 16; TEMP 36.9; O2SAT 100
--- NOTE | 2023-03-26 09:51 | DCINST_ITS ---
Discharge Instructions Diet Discharge Diet: No restrictions Activity Discharge Activity: Return to Normal Activity Follow Up Care Test Results: Test results from this visit will be discussed in further detail at your follow- up appointment, if applicable. Discharge Plan Admission Admit Date/Time: 03/24/23 22:07 Primary Reason for Your Visit: Opioid withdrawal Attending Provider: Kimi Dudley Primary Care Provider: Care Physician,No Primary Consulting Providers: Hima Lindo Instructions Patient Instructions: ED Opiate Abuse, ED Opioid Withdrawal Additional Instructions / Restrictions: -If you do not have a primary care physician of list of local primary care physicians can be provided for you upon discharge. Please ask for this list prior to discharge - It is strongly advised that you refrain from any substance use. Please call [facility] located at [address] [place] [id number] (ph [phone]) if you are interested in further resources -Please take and use the topical cream for the rash on your upper chest, if this is not improving would recommend following with a primary care physician or be reevaluated in urgent care Discharge Orders/Prescriptions Prescriptions: No Action NK Referrals / Follow Up: Care Physician,No Primary [Primary Care Provider] - ( -If you do not have a primary care physician of list of local primary care physicians can be provided for you upon discharge. Please ask for this list prior to discharge ) Disposition Disposition (needs filled in before D/C Order can be placed): Inpatient Rehab Unit/Facility
--- NOTE | 2023-03-26 09:55 | DS.PCM_ITS ---
Providers Date of Admission: 03/24/23 Date of Discharge: 03/26/23 Primary Care Physician: No Primary Care Phys Reason For Visit: DESIRE FOR DETOXIFICATION Diagnosis Discharge Diagnosis (1) Desire for detoxification: Status: Acute (2) Eczema: Status: Acute Code(s): L30.9 - Dermatitis, unspecified Qualifiers: Eczema type: unspecified Qualified Code(s): L30.9 - Dermatitis, unspecified (3) Mild tobacco abuse: Status: Acute Code(s): F17.200 - Nicotine dependence, unspecified, uncomplicated (4) Methamphetamine abuse: Status: Acute Code(s): F15.10 - Other stimulant abuse, uncomplicated Plan #Desire for opioid detoxification #Mild Tobacco abuse #Eczema #Methamphetamine abuse Medications at Discharge Home Medications NK 03/24/23 Hospital Course Summary of Care Provided Minutes Spent on Discharge: 20 Hospital Course: Patient was admitted 03/24 from residential treatment due to concerns that she had used after she got there, patient admitted and was not started on Subutex given her self-report of lack of symptoms and self-reported not using for several days and minimizing usage before that. Consistently denied any symptoms and COWS score is 0 or 1 persistently, patient continued to adamantly deny any withdrawal. Was sent back to inpatient rehab 03/26. Has a slight itchy rash on her upper right chest for which she has been using hydrocortisone cream from the ED, advised to continue using this. No new medical complaints on day of discharge Physical Exam Narrative General: Alert, oriented, no apparent distress HEENT: Atraumatic, normocephalic Eyes: Anicteric, normal conjunctiva, extraocular movements grossly intact Neck: Supple Respiratory: Clear to auscultation bilaterally, normal respiratory effort Cardiovascular: Regular rate and rhythm GI: Soft, nontender, nondistended Extremities: No edema Musculoskeletal: Moving all extremities Neuro: No overt focal neurological deficits Skin: Slight erythematous rash on right upper chest Psych: Superficially cooperative Weight / BMI Weight Weight: 69.5 kg Body Mass Index (BMI) 28.0 ABG / Lab / Microbiology Data 03/24/23 20:51 03/26/23 06:35 Laboratory: Laboratory Results - last 24 hr 03/26/23 06:35: Sodium 138, Potassium 4.0, Chloride 106, Carbon Dioxide 32.0, Anion Gap 0 L, BUN 10, Creatinine 0.70, Estim Creat Clear Calc 86.18, Est GFR (MDRD) Af Amer 120, Est GFR (MDRD) Non-Af 99, BUN/Creatinine Ratio 14.2, Glucose 94, Calcium 8.4 L D/C Instructions Discharge Diet: No restrictions Meaningful Use Info Meaningful Use Diagnoses (Choose all that apply): None applicable Discharge Plan Admission Admit Date/Time: 03/24/23 22:07 Primary Reason for Your Visit: Opioid withdrawal Attending Provider: Kimi Dudley Primary Care Provider: Care Physician,No Primary Consulting Providers: Hima Lindo Instructions Patient Instructions: ED Opiate Abuse, ED Opioid Withdrawal Additional Instructions / Restrictions: -If you do not have a primary care physician of list of local primary care physicians can be provided for you upon discharge. Please ask for this list prior to discharge - It is strongly advised that you refrain from any substance use. Please call [facility] located at [address] [place] [phone] (ph [phone]) if you are interested in further resources -Please take and use the topical cream for the rash on your upper chest, if this is not improving would recommend following with a primary care physician or be reevaluated in urgent care Discharge Orders/Prescriptions Prescriptions: No Action NK Referrals / Follow Up: Care Physician,No Primary [Primary Care Provider] - ( -If you do not have a primary care physician of list of local primary care ph ysicians can be provided for you upon discharge. Please ask for this list prior to discharge ) Disposition Disposition (needs filled in before D/C Order can be placed): Inpatient Rehab Unit/Facility Charges/Coding Visit Charges Inpatient E&M: 92198 Disch Hosp
--- NOTE | 2023-03-26 10:26 | PHA.DC.MR.R ---
Pharmacy [place] Med Reconciliation Pharmacy Service has performed discharge medication reconciliation for this patient. The patient's discharge medication list was reviewed for discrepancies and discrepancies were resolved. Medications at Discharge Home Medications NK 03/24/23
== END 2023-03-26 10:45 | DRG 773 ==
LOC: ED 21:56 → MS3 03-25 06:59
PROVIDERS: Admitting Provider Hospitalist; Emergency Provider Emergency Medicine; Visit Provider Internal Medicine
DX: F11.10 Opioid abuse, uncomplicated (principal); F15.10 Other stimulant abuse, uncomplicated; F17.210 Nicotine dependence, cigarettes, uncomplicated; F17.290 Nicotine dependence, other tobacco product, uncomplicated; L30.9 Dermatitis, unspecified
CPT/HCPCS: 36415; 80048; 80053; 80307; 82077; 84703; 85025; 99285; H0012

== ENCOUNTER 2025-03-13 17:24 | Emergency (ER) | payer SELFPAY ==
[2025-03-13 17:24] VITALS: BP 136/82; PULSE 80; RESP 14; TEMP 36.6; O2SAT 98; BMI 29.7
--- NOTE | 2025-03-13 17:40 | EX.ED.DYSGE1 ---
HPI History of Present Illness Chief Complaint: General Illness Informant: patient Onset/Context/Timing Onset: - (1-1/2 to 2 weeks ago.) Context: Gradual Onset Timing: Intermittent Location: Completely resolved. Current Severity: Gone Maximum Severity: Mild Narrative Narrative: 40-year-old female history of anxiety depression. 1 to 2 weeks ago she was at work near the end of her shift at [employer]. She felt dehydrated. Left early. To resume work she just needs a work return to work slip. She was not seen at that time. She denies any recent complaints. No known medical problems otherwise. Prior similar symptoms: Yes Recent Illness/Hospitalization: No PFSH PFSH Medical History Depression Anxiety Substance abuse Cellulitis of right foot Bilateral lower extremity edema Home Medications ?Medication ?Instructions ?Recorded ?Last Taken ?Type NK 03/24/23 Unknown History Allergy/AdvReac Type Severity Reaction Status Date / Time ketorolac (From Toradol) Allergy Itching Verified 03/24/23 20:37 cephalexin monohydrate (From AdvReac Vomiting Verified 03/24/23 20:37 Keflex) cyclobenzaprine HCl (From AdvReac Pain in Verified 03/24/23 20:37 Flexeril) joints Penicillins AdvReac Unknown Verified 03/24/23 20:37 promethazine (From Phenergan) AdvReac Other Verified 03/24/23 20:37 tramadol AdvReac Vomiting Verified 03/24/23 20:37 Family History Other Arthritis Cancer Diabetes Lung cancer Surgical History H/O myringotomy History of tonsillectomy H/O tubal ligation Social History Smoking Status: Former smoker ROS ROS ED ROS Narrative Denies recent illness other than mild nausea 1 to 2 weeks ago which is since resolved. Constitutional Constitutional ED: Denies chills or fever(s) Eyes Eyes: Denies blurry vision ENT ENT ED: Denies ear pain or rhinorrhea Cardiovascular Cardiovascular: Denies chest pain Respiratory/Chest Respiratory/Chest: Denies cough or dyspnea Gastrointestinal Gastrointestinal: Denies abdominal pain Genitourinary Genitourinary ED: Denies dysuria or hematuria Musculoskeletal Musculoskeletal: Denies arthralgias, back pain, myalgias or neck pain Integumentary Denies abscess or Abrasions Neurologic Neurologic: Denies headache(s) Psychiatric Psychiatric: Denies anxiety Endocrine Endocrinology: Denies cold intolerance Hematologic/Lymphatic Hematologic/Lymphatic: Reports none Allergic/Immunologic Allergic/Immunologic ED: Denies mouth swelling, tongue swelling or urticaria EXAM Physical Exam Narrative Exam Narrative: Well-appearing 40-year-old female. Vital signs stable afebrile. No distress. H EENT exam pupils round react to light. Extract motions intact. Moist mucous membranes. Neck nontender. No JVD. No lymphadenopathy. Lungs clear to auscultation bilaterally. Heart regular rate rhythm rate about 80 no murmur. Chest wall ribs nontender. Abdomen soft nontender. Moving all 4 extremities. 5-5 mmi teacher strength bilaterally. Dorsi plantarflexion intact. Nontender no edema. Normal strength. Normal range of motion. Back nontender. Neurologic exam. Awake alert. Answering questions following commands. Normal exam. Const Vital Signs: 03/13/25 17:24 Temperature 98 F Temperature Source Temporal Pulse Rate 80 Respiratory Rate 14 Blood Pressure 136/82 H Blood Pressure Mean 100 Pulse Ox 98 Oxygen Delivery Method Room Air Positive well nourished and well developed; Negative for obese, cachectic, contractures or unkempt General Appearance ED: well developed and NAD; Negative for unkempt, cachectic, contractures, cyanotic, diaphoretic or pallor Nutritional Appearance: Negative for cachectic or obese HEENT Reports moist mucous membranes Negative for trauma or tenderness Eyes PERRL and EOMs intact bilaterally Neck no lymphadenopathy, supple and no JVD Chest Wall inspection of chest normal and palpation of chest normal Resp normal respiratory effort and clear to auscultation bilaterally Cardio regular rate, regular rhythm, S1 normal heart sound, S2 normal heart sound and no murmurs GI normal to inspection, nondistended, normoactive bowel sounds, non-tender, non-distended and no masses Auscultation: normoactive bowel sounds Palpation: soft; Negative for tender, guarding or rebound tenderness present Back/Spine no CVA tenderness General Back: Negative for CVA tenderness Cervical Spine: Negative for cervical spine tenderness Thoracic Spine / Upper Back: Negative for thoracic spinal tenderness or paraspinal muscle tenderness Lumbar Spine / Lower Back: Negative for lumbar spinal tenderness Extremity normal to inspection General Extremety ED: Negative for edema or tenderness General Extremity: Negative for edema Neuro oriented x3 and CN's II-XII intact bilaterally Sensorium / Orientation: alert Motor Exam: strength 5/5 throughout Psych mental status grossly normal Appearance: Negative for unkempt Skin no rashes or lesions noted, no wounds and skin turgor normal General Skin Exam: elasticity normal; Negative for jaundice or pallor Lesions: No lesion noted Rashes: No rashes noted Trauma: Negative for abrasion Wounds: Negative for wounds noted MDM MDM MDM Narrative Medical decision making narrative: 40-year-old female just wanted a work note to be able to go back to work unrestricted. She left work 1 to 2 weeks ago because she felt dehydrated. She was not seen at that time due to insurance and financial reasons. Her exam today is benign and unremarkable. She was given a return to work note. History & Record Review Discussion w/independent historian: Patient Additional record(s) reviewed:: Prior inpatient record, Prior outpatient record, Prior ED visit and Prior labs Discharge Plan Triage Chief Complaint: General Illness ED Provider: Antonio Byrd Dx/Rx/DC Orders Clinical Impression: Well adult health check Instructions: ED Screening Exam Medical Nonurgent Prescriptions: No Action NK Primary Care Provider: Care Physician,No Primary Referrals: Kelsea Tejeda MD [Med Staff - Active Staff, Internal Medicine] - As Needed Care Physician,No Primary [Primary Care Provider, Medical] Activity Restrictions/Additional Instructions: Patient was evaluated to be able to return to work. Her exam is unremarkable she may return to normal work with no work restrictions beginning today on Thursday, March 13, 2025 Print Language: Telugu Disposition Disposition: Home, Self Care
[2025-03-13 17:43] VITALS: BP 136/82; PULSE 80; RESP 14; TEMP 36.6; O2SAT 98
== END 2025-03-13 17:44 | disposition home or self-care (01) ==
LOC: ED 17:44
PROVIDERS: Emergency Provider Emergency Medicine; Visit Provider Emergency Medicine
DX: Z00.00 Encounter for general adult medical examination without abnormal findings (principal); Z87.891 Personal history of nicotine dependence
CPT/HCPCS: 99282